=== PATIENT | male | born 1950 | race Caucasian/White ===

== ENCOUNTER 2021-06-21 06:52 | Outpatient (REF) | payer MEDICARE, SELFPAY ==
[2021-06-21 11:29] LABS: Appearance Urine CLEAR; Color Urine YELLOW; Glucose Urine UA NEG (NEG); Leukocyte Esterase Urine NEG (NEG); Nitrite Urine NEG (NEG); Specific Gravity - Urine 1.025 (1.005-1.025); Urine Blood NEG (NEG); Urine Ketones 15 MG/DL (NEG); Urine Protein NEG (NEG-TRACE)
[2021-06-21 12:03] LABS: Prostate Specific Antigen Scr 0.78 ng/mL (<0.05-4.0); TSH reflex Free T4 14.75 uIU/mL (0.32-4.0)
[2021-06-21 12:07] LABS: Alanine Aminotransferase 39 U/L (0-40); Albumin Level 4.1 g/dL (3.5-5.0); Alkaline Phosphatase 47 U/L (39-117); Anion Gap 13 (12-20); Aspartate Amino Transferase 35 U/L (5-37); Bilirubin Total 1.7 mg/dL (0.0-1.0); Blood Urea Nitrogen 20 mg/dL (9-16); Calcium 9.7 mg/dL (8.4-10.2); Carbon Dioxide 27 mmol/L (22-29); Chloride 100 mmol/L (96-108); Cholesterol 172 mg/dL; Estimated Glomerular Filt Rate > 60; Glucose Fasting 90 mg/dL (60-99); HDL Cholesterol 54 mg/dL; LDL Cholesterol Calculated 100 mg/dl; Potassium 4.2 mmol/L (3.3-5.1); Sodium 136 mmol/L (135-145); Triglycerides 93 mg/dL
[2021-06-21 12:38] LABS: Free T4 (Free Thyroxine) 0.84 ng/dL (0.71-1.85)
== END 2021-06-21 06:53 | disposition home or self-care (01) ==
LOC: HO.HMGCLDS 06:52
PROVIDERS: PCP Nurse Practitioner Family; Visit Provider Nurse Practitioner Family
DX: Z00.00 Encounter for general adult medical examination without abnormal findings (principal); Z12.5 Encounter for screening for malignant neoplasm of prostate
CPT/HCPCS: 36415; 80053; 80061; 81003; 84153; 84439; 84443

== ENCOUNTER → 2021-07-15 13:40 | Outpatient (REF) | payer MEDICARE, SELFPAY ==
--- NOTE | 2021-07-15 13:53 | CA_ITS ---
Transthoracic Echocardiogram Amended Patient (Last, First, Middle): Vipul Patterson, Gender: Male Date of : 1950 Age: 70 Procedure Date: 07/15/2021 Procedure Type: Transthoracic Echocardiogram Location: OP Height: 175.26 cm Weight: 96.16 kg BSA: 2.12 m2 Heart Rate: bpm BP: 140 / 90 mmHg [employer] Aide: MIGUEL Referring MD: Angelo Martinez [facility] Symptoms: R94.31 - Abnormal electrocardiogram [ECG] [EKG] Study Quality: Fair ECG Rhythm: Possible atrial fibrillation Conclusions: - The left ventricular systolic function is normal. The calculated ejection fraction is 61% by biplane method. - No obvious valvular pathology seen on this study. Findings Left Ventricle Normal left ventricular cavity size. There is mildly increased left ventricular wall thickness. The left ventricular systolic function is normal. The calculated ejection fraction is 61% by biplane method. There is no evidence of regional wall motion abnormalities. Diastolic function is normal for age. Right Ventricle Normal right ventricular cavity size and systolic function. Atria The left atrium is mildly dilated. The right atrium is normal in size. Aortic Valve There is a normal trileaflet aortic valve. There is no aortic valve stenosis. There is no aortic valve regurgitation. Mitral Valve The mitral valve appears normal. There is trace mitral valve regurgitation. There is no mitral valve stenosis. Pulmonic Valve The pulmonic valve was not well visualized. Tricuspid Valve There is trace tricuspid valve regurgitation. The pulmonary artery systolic pressure is normal. Great Vessels The aortic annulus, sinuses of valsalva, asc aorta, and aortic arch are normal in size. Venous The inferior vena cava is normal in size and collapses greater than 50% with inspiration. Pericardium/Pleural There is no evidence of pericardial effusion. Prior Study Comparison No prior study available for comparison. Recommendations, Care & Conclusions No obvious valvular pathology seen on this study. Measurements 2D Linear Measurements IVSd: 1.02 0.6-0.9/0.6-1.0 cm LVIDd: 4.46 3.9-5.3/4.2-5.9 cm LVIDd Index: 2.10 2.4-3.2/2.2-3.1 cm/m2 LVIDs: 3.13 2.0-3.6 cm LVPWd: 1.15 0.7-1.1 cm Ao Root: 3.70 2.1-3.5 cm LA Diam: 3.90 2.7-3.8/3.0-4.0 cm LAIDs Index: 1.84 1.5-2.3 cm/m2 LV Mass: 210.83 67-162/88-224 g LV Mass Index: 99.45 43-95/49-115 g/m2 LVOT Diam: 2.30 3.0+(-)1.3 cm 2D Volumes LA Vol: 36.70 2D Systolic Function EF 4C: 49.60 >55% EF 2C: 65.80 >55% EF BiP: 60.70 >55% Mitral Valve MV Pk E: 0.71 MV PK A: 0.67 MV Decel Time: 256.00 E/A: 1.10 E'Lateral: 10.60 E'Medial: 6.53 E/E' Med: 10.90 E/E' Lat: 6.70 PHT: 75.00 MVA PHT: 2.93 Decel Jenkins: 2.78 Aortic Valve AoV Pk Ferny: 1.15 AoV Mn Ferny: 0.82 AoV VTI: 0.20 AoV Pk Grad: 5.00 Aov Mn Grad: 3.00 LILY Cont.VTI: 3.74 LVOT LVOT Pk Ferny: 1.15 LVOT Mn Ferny: 0.63 LVOT VTI: 0.18 LVOT Pk Grad: 5.00 LVOT Mn Grad: 2.00 LVOT Diam: 2.30 LVOT Area: 4.15 Diastolic Function MV Pk E: 0.71 MV Pk A: 0.67 E/A: 1.10 E'Medial: 6.53 E/E' Med: 10.90 E' Laterial: 10.60 E/E' Lat: 6.70 Right Ventricle TAPSE (mm): 2.12 TVS' Ferny: 16.20 Tricuspid Valve TR Pk Ferny: 1.95 TR Pk Grad: 15.00 RA Press: 3.00 RVSP: 18.00 Great Vessels Aorta Ao Root-2D: 3.70 2.0-3.7 cm Ao Asc: 3.10 2.1-3.4 cm Ao Arch: 2.40 Updated in Other Vendor System with Status of Final Prasanna Chand MD electronically signed on 07/15/2021 4:51:19 PM with status of Final
== END ==
LOC: HO.CARD 13:40
PROVIDERS: Visit Provider Nurse Practitioner Family
DX: R94.31 Abnormal electrocardiogram [ECG] [EKG] (principal)
CPT/HCPCS: 93306

== ENCOUNTER → 2021-08-15 14:53 | Outpatient (REF) | payer MEDICARE, SELFPAY ==
--- NOTE | 2021-08-15 14:55 | HM_ITS ---
Conclusion : 1. Patient was monitored for total of 3 days 2. Baseline rhythm is NSR with average hr of 86 bpm 3. Very frequent short bursts of SVEs noted c/w SVT longest lasting 14 [place] [id number] PACs accounting for 5% of total beats, c/w frequent PACs 5. No significant pauses or bradycardia noted 6. No patient reported events MTDD
== END ==
LOC: HO.CARD 14:53
PROVIDERS: Visit Provider Nurse Practitioner Family
DX: I49.9 Cardiac arrhythmia, unspecified (principal)
CPT/HCPCS: 93242

== ENCOUNTER 2021-09-10 09:20 | Outpatient (REF) | payer MEDICARE, SELFPAY ==
[2021-09-10 11:16] LABS: Hematocrit 48.6 % (42.0-52.0); Hemoglobin 16.5 g/dl (14.0-18.0); Mean Corpuscular Hemoglobin 32.4 pg (27.0-33.0); Mean Corpuscular Volume 95.5 fL (80.0-98.0); Mean Platelet Volume 9.1 fL (9.4-12.4); Platelet Count 251 X10*3/uL (160-400); Red Blood Count 5.09 X10*6/uL (4.60-5.80); Red Cell Distribution Width 13.6 % (11.0-16.0); White Blood Count 5.2 X10*3/uL (4.8-10.8)
[2021-09-10 11:59] LABS: TSH reflex Free T4 7.14 uIU/mL (0.32-4.0)
== END 2021-09-10 09:21 | disposition home or self-care (01) ==
LOC: HO.LAB 09:20
PROVIDERS: PCP Nurse Practitioner Family; Referring Provider Nurse Practitioner Family; Visit Provider Nurse Practitioner Family
DX: I47.1 Supraventricular tachycardia (principal); Z12.11 Encounter for screening for malignant neoplasm of colon
CPT/HCPCS: 36415; 84439; 84443; 85027; 99202

== ENCOUNTER → 2021-10-14 14:57 | Outpatient (BNVA) | payer MEDICARE, SELFPAY | PROVIDERS: PCP Nurse Practitioner Family; Referring Provider Nurse Practitioner Family; Visit Provider Internal Medicine | DX: Z01.810 Encounter for preprocedural cardiovascular examination (principal); I49.8 Other specified cardiac arrhythmias; I10 Essential (primary) hypertension; R07.2 Precordial pain | CPT/HCPCS: 99202 ==

== ENCOUNTER → 2021-11-11 07:57 | Outpatient (REF) | payer MEDICARE, SELFPAY ==
--- NOTE | ~2021-11-11 | NM_ITS ---
Myocardial perfusion study Indication: Precordial chest pain to evaluate for myocardial ischemia Technique: The patient was brought in for a Lexiscan perfusion study on 11/11/2021. Patient performed low-level exercise and was injected 0.4 mg of Lexiscan intravenously. Within a minute of injection, 30 mCi of sestamibi was given intravenously. Images were obtained using the SPECT gamma camera interlaced with the gating device. Images were obtained in supine position. Resting perfusion study was performed on 11/12/2021. Patient was administered 30 mCi of sestamibi intravenously at rest. Images were then obtained in supine position. Images obtained with and without CT attenuation. Total DLP 121 mGy-cm. Images were processed with the software and compared side to side in short axis, horizontal long axis and vertical long axis views. Findings: The stress perfusion study showed non attenuated images show minimal thinning in the basal septum basal inferior wall of the LV myocardium. This appears to be a normal variant. Remainder of the LV myocardium is normally perfused. Attenuated corrected images show normal uptake of radiotracer in all segments of LV myocardium. The gated study shows normal LV systolic function with calculated LVEF of 64%. LV cavity is normal in size. The gated study shows normal systolic wall thickening and contraction of segments. Resting study shows attenuated corrected images show normal uptake of radiotracer in all segments myocardium. Gating at rest reveals normal systolic wall motion with ejection fraction at 60%. The findings are consistent with normal myocardial perfusion. NM/NM cardiolite stress test Impression: 1. Myocardial perfusion imaging study shows normal myocardial perfusion 2. Gated LVEF is 64% 3. Transient ischemic dilatation not present EKG is nondiagnostic for ischemia
--- NOTE | 2021-11-11 08:00 | CA_ITS ---
Acquisition Time: 2021-11-11 08:09:39 Total Exercise Time: 00:02:00 Test Indications: Abnormal ECG Medications: AMLODIPINE Protocol: LEXISCAN Max HR: 116 BPM 78% of Pred: 147 BPM Max BP: 184/100 mmHG Max Work Load: 1.0 METS Pharmacological stress test with Lexiscan injection, while sitting and kickng his legs, without anginal symptoms, with frequent PACs and short atrial runs, with normotensive response to injection, with nondiagnostic EKG for ischemia. In recovery he reported lightheadedness that was treated with Aminophylline 75mg IVP to reverse Lexiscan with resolution of symptom. Nuclear images pending. Test reviewed with Dr Chand Referred By: Prasanna Chand Overread By: CHARMAINE AVILES
== END ==
LOC: HO.CARD 07:57
PROVIDERS: PCP Nurse Practitioner Family; Visit Provider Internal Medicine
DX: R07.2 Precordial pain (principal)
CPT/HCPCS: 78452; 93017; A9500; J0280; J2785

== ENCOUNTER → 2021-11-25 14:55 | Outpatient (BNVA) | payer MEDICARE, SELFPAY | PROVIDERS: PCP Nurse Practitioner Family; Referring Provider Nurse Practitioner Family; Visit Provider Internal Medicine | DX: Z01.810 Encounter for preprocedural cardiovascular examination (principal); I49.8 Other specified cardiac arrhythmias; I10 Essential (primary) hypertension | CPT/HCPCS: 99212 ==

== ENCOUNTER 2021-12-04 07:29 | Outpatient (REF) | payer MEDICARE, SELFPAY ==
[2021-12-04 11:58] LABS: Anion Gap 13 (12-20); Blood Urea Nitrogen 17 mg/dL (9-16); Calcium 9.7 mg/dL (8.4-10.2); Carbon Dioxide 28 mmol/L (22-29); Chloride 93 mmol/L (96-108); Estimated Glomerular Filt Rate 53; Glucose Random 106 mg/dL (60-115); Potassium 4.1 mmol/L (3.3-5.1); Sodium 130 mmol/L (135-145)
== END 2021-12-04 07:30 | disposition home or self-care (01) ==
LOC: HO.HMGCLDS 07:29
PROVIDERS: PCP Nurse Practitioner Family; Visit Provider Internal Medicine
DX: I10 Essential (primary) hypertension (principal)
CPT/HCPCS: 36415; 80048

== ENCOUNTER → 2022-05-27 13:51 | Outpatient (BNVA) | payer MEDICARE, SELFPAY | PROVIDERS: PCP Nurse Practitioner Family; Referring Provider Nurse Practitioner Family; Visit Provider Internal Medicine | DX: I49.8 Other specified cardiac arrhythmias (principal); I10 Essential (primary) hypertension; R94.31 Abnormal electrocardiogram [ECG] [EKG] | CPT/HCPCS: 93005; 99212 ==

== ENCOUNTER → 2022-11-25 13:07 | Outpatient (BNVA) | payer MEDICARE, SELFPAY | PROVIDERS: PCP Nurse Practitioner Family; Referring Provider Nurse Practitioner Family; Visit Provider Internal Medicine | DX: I49.8 Other specified cardiac arrhythmias (principal); I10 Essential (primary) hypertension; R94.31 Abnormal electrocardiogram [ECG] [EKG] | CPT/HCPCS: 99212 ==

== ENCOUNTER 2022-12-17 07:19 | Outpatient (REF) | payer MEDICARE, SELFPAY ==
[2022-12-17 11:23] LABS: MANUAL DIFF FLAG NO
[2022-12-17 11:33] LABS: Appearance Urine Clear; Color Urine Yellow; Glucose Urine UA Negative (Negative); Leukocyte Esterase Urine Negative (Negative); Nitrite Urine Negative (Negative); Specific Gravity - Urine 1.015 (1.005-1.025); Urine Blood Negative (Negative); Urine Ketones Negative (Negative); Urine Protein Negative (Neg-Trace)
[2022-12-17 11:34] LABS: Basophils Percent Auto 0.5 % (0-2); Eosinophils Absolute Auto 0.1 X10*3/uL (0.0-0.4); Eosinophils Percent Auto 1.2 % (0-4); Hematocrit 44.8 % (42.0-52.0); Hemoglobin 15.3 g/dl (14.0-18.0); Imm Gran Abs Auto 0.01 X10*3/uL (0.00-0.03); Imm Gran Pct Auto 0.2 % (0.0-0.4); Lymphocytes Absolute Auto 1.6 X10*3/uL (1.2-4.9); Lymphocytes Percent Auto 26.1 % (20-40); Mean Corpuscular HGB Conc 34.2 g/dl (31.0-36.0); Mean Corpuscular Hemoglobin 32.1 pg (27.0-33.0); Mean Corpuscular Volume 94.1 fL (80.0-98.0); Mean Platelet Volume 9.5 fL (9.4-12.4); Monocytes Absolute Auto 0.9 X10*3/uL (0.1-1.2); Monocytes Percent Auto 14.3 % (2-11); Neutrophils Absolute Auto 3.5 x10*3/uL (2.0-8.3); Neutrophils Percent Auto 57.7 % (45-73); Platelet Count 249 X10*3/uL (160-400); Red Blood Count 4.76 X10*6/uL (4.60-5.80); Red Cell Distribution Width 13.4 % (11.0-16.0)
[2022-12-17 12:11] LABS: Alanine Aminotransferase 48 U/L (0-40); Alkaline Phosphatase 41 U/L (39-117); Anion Gap 10 (12-20); Aspartate Amino Transferase 39 U/L (5-37); Bilirubin Total 1.5 mg/dL (0.0-1.0); Blood Urea Nitrogen 18 mg/dL (9-16); Calcium 8.9 mg/dL (8.4-10.2); Carbon Dioxide 27 mmol/L (22-29); Chloride 100 mmol/L (96-108); Cholesterol 151 mg/dL; Estimated Glomerular Filt Rate 48; Glucose Fasting 97 mg/dL (60-99); HDL Cholesterol 54 mg/dL; LDL Cholesterol Calculated 84 mg/dl; Potassium 4.3 mmol/L (3.3-5.1); Sodium 133 mmol/L (135-145); Total Protein 6.5 g/dL (6.5-8.0); Triglycerides 68 mg/dL
[2022-12-17 12:31] LABS: Prostate Specific Antigen Scr 0.65 ng/mL (<0.05-4.0); TSH reflex Free T4 8.56 uIU/mL (0.32-4.0)
[2022-12-17 13:15] LABS: Free T4 (Free Thyroxine) 0.95 ng/dL (0.71-1.85)
== END 2022-12-17 07:20 | disposition home or self-care (01) ==
LOC: HO.HMGCLDS 07:19
PROVIDERS: PCP Nurse Practitioner Family; Visit Provider Nurse Practitioner Family
DX: Z00.00 Encounter for general adult medical examination without abnormal findings (principal); R79.89 Other specified abnormal findings of blood chemistry; R74.8 Abnormal levels of other serum enzymes; Z12.5 Encounter for screening for malignant neoplasm of prostate
CPT/HCPCS: 36415; 80053; 80061; 81003; 84153; 84439; 84443; 85025

== ENCOUNTER 2023-06-29 15:58 | Outpatient (AMB) | payer MEDICARE, SELFPAY ==
--- NOTE | 2023-06-29 16:03 | A.OFFPC_ITS ---
Vital Signs 06/29/23 16:04 Height 5 ft 9 in Weight 211 lb BMI 31.2 BP 150/100 H Blood Pressure Location Lt brachial Position Sitting Pulse 98 Pulse Source Pulse Oximeter Pulse Oximetry (%) 97 Oxygen Delivery Method Room Air Intake Visit Reasons: recurring cough, declined walk in Allergies No Known Allergies Allergy (Verified 06/29/23 16:05) Medication List - Last Reconciled 06/29/23 by JESUS Bowen amlodipine 10 mg PO DAILY hydrochlorothiazide 25 mg PO DAILY lisinopril 20 mg PO DAILY 90 days metoprolol tartrate 25 mg PO BID 90 days Tobacco use date assessed: 12/09/22 HPI recurring cough, declined walk in HPI Details Pt c/o cough since having COVID in December. He reports that this has increased. Pt states that the cough can be either dry or productive and happens at any time of day/night. Denies fever, chills, chest pain, and shortness of breath. Will order CT. Pt also c/o fatigue. Will order labs. HTN: pt reports taking his BP at home, reporting it is much better at home. He will contact me if he notices his BP is trending above 140/90. [facility] Medical History Arthritis Surgical History Hx of colonoscopy Hx of right knee surgery Family History Father No problems noted. Mother No problems noted. Social History Housing: House Patient Tobacco Use Status: Never used Tobacco e-Cigarette/Vaping Use: Never Used Current occupational status: retired Cognitive needs: No Hearing needs: No Vision needs: No Questionnaire Thrive Questionnaire Date Thrive assessed: 12/09/22 GUERA-7 AMB Questionnaire GUERA-7 Date GUERA - 7 assessed: 12/09/22 Source: Developed by Drs. Terry Cline, Shagufta Moreno, John Leo and colleagues, with an educational sandhya from [employer]). Review of Systems Const Reports as per HPI Physical exam (Primary Care) Vital Signs: Last Vital Signs Pulse 98 06/29/23 16:04 BP 150/100 H 06/29/23 16:04 Pulse Ox 97 06/29/23 16:04 Oxygen Delivery Method Room Air 06/29/23 16:04 BMI result Body Mass Index 31.2 Tobacco/Smoking Status: Tobacco use Status Tobacco use date assessed 12/09/22 06/29/23 16:04 Patient Tobacco Use Status Never used Tobacco 06/29/23 16:04 e-Cigarette/Vaping Use Never Used 06/29/23 16:04 Thrive Assessment: Date of Thrive Assessment Date Thrive assessed 12/09/22 06/29/23 16:04 Const General: cooperative Nutritional Appearance: obese Orientation/consciousness: patient oriented x3 Resp Other: lungs fairly clear, slightly diminished Effort & Inspection: normal respiratory effort Cardio Rate: regular rate Rhythm: regular rhythm Heart sounds: S1 normal heart sound present and S2 normal heart sound present Neuro General: patient oriented x3 Psych Appearance: grossly normal Mental Status: mental status grossly normal Speech and movement: Normal speech and movement present Affect: normal affect Attitude: cooperative Thought process: Normal thought process present Thought content: Normal thought content present Insight: Good insight present (Psych) Judgement: Good judgement present (Psych) Assessment and Plan Assessment & Plan (1) Long COVID: Code(s): U09.9 - Post COVID-19 condition, unspecified Plan: CT ordered (2) Cough: Code(s): R05.9 - Cough, unspecified Plan: CT ordered (3) Fatigue: Code(s): R53.83 - Other fatigue Plan: Labs ordered Plan The patient agreed to the use of a medical officer psychiatry for this encounter. Scribed for ARELI Fallon-FARIBA by Carolina Guajardo medical officer psychiatry, on 06/29/2023 at 16:20 EST. Orders: Orders Comprehensive Met. Panel Today R53.83 - Other fatigue, U09.9 - Post COVID-19 condition, unspecified TSH reflex Free T4 Today R53.83 - Other fatigue, U09.9 - Post COVID-19 condition, unspecified IRON PROFILE Today R53.83 - Other fatigue CT chest wo IV con Today R05.9 - Cough, unspecified, U09.9 - Post COVID-19 condition, unspecified Complete Blood Count Auto Diff Today R53.83 - Other fatigue, U09.9 - Post COVID- 19 condition, unspecified Ferritin Today R53.83 - Other fatigue Vitamin B12 and Folate Today R53.83 - Other fatigue Coding Level of Care Code Est Pt Level 3 (34356) Diagnoses Long COVID U09.9 Cough R05.9 Fatigue R53.83
[2023-06-29 16:04] VITALS: BP 150/100; PULSE 98; O2SAT 97; BMI 31.2
== END 2023-06-29 16:32 | disposition home or self-care (01) ==
PROVIDERS: PCP Nurse Practitioner Family; Visit Provider Nurse Practitioner Family
DX: U09.9 Post COVID-19 condition, unspecified (principal); R05.9 Cough, unspecified; R53.83 Other fatigue
CPT/HCPCS: 99213

== ENCOUNTER 2023-08-05 12:46 | Outpatient (REF) | payer MEDICARE, SELFPAY ==
--- NOTE | ~2023-08-05 | CT_ITS ---
EXAMINATION: CT CHEST WITHOUT CONTRAST CLINICAL INFORMATION: Cough, unspecified. COMPARISON: None available. TECHNIQUE: Multidetector volumetric CT imaging of the chest was done. Axial MIP volume rendering provided. Sagittal and coronal reformatted images were obtained. This CT examination was performed using dose optimization techniques as appropriate, variously including the following: *Automated exposure control *Adjustment of mA and/or kV according to patient size (this includes techniques or standardized protocols for targeted exams where dose is matched to indication/reason for exam; i.e. extremities or head) *Use of iterative reconstruction technique DLP: 237 mGy-cm FINDINGS: LUNGS: Mild motion degradation at the lung bases. Mildly thick-walled airways. No focal consolidation. Mild scarring or subsegmental atelectasis in left lower lobe. No suspicious nodules. MEDIASTINUM: No adenopathy. No pericardial effusion. No aortic aneurysm. CORONARY ARTERY CALCIFICATION: Mild LAD, LCx, RCA calcium. PLEURA: There is no pleural effusion. No pleural mass or thickening. AXILLA: No lymphadenopathy. UPPER ABDOMEN: Cholelithiasis. 4.0 x 3.6 cm simple cyst in the right hepatic lobe. OSSEOUS STRUCTURES: Mild degenerative changes in the spine. CT/CT chest wo IV con IMPRESSION: Mild airway wall thickening. No focal pneumonia. Mild LAD, LCx, RCA coronary calcium. Cholelithiasis. Fleischner guidelines were followed.
== END 2023-08-05 12:47 | disposition home or self-care (01) ==
LOC: HO.CT 12:46
PROVIDERS: PCP Nurse Practitioner Family; Visit Provider Nurse Practitioner Family
DX: R05.9 Cough, unspecified (principal); U09.9 Post COVID-19 condition, unspecified
CPT/HCPCS: 71250

== ENCOUNTER 2023-09-30 12:48 | Outpatient (AMB) | payer MEDICARE, SELFPAY ==
[2023-09-30 13:03] VITALS: BP 118/72; PULSE 52; O2SAT 99; BMI 31.0
--- NOTE | 2023-09-30 13:03 | A.OFFPC_ITS ---
Vital Signs 09/30/23 13:03 Height 5 ft 9 in Weight 210 lb 2 oz BMI 31.0 BP 118/72 Blood Pressure Location Rt brachial Position Sitting Pulse 52 Pulse Source Pulse Oximeter Pulse Oximetry (%) 99 Oxygen Delivery Method Room Air Intake Visit Reasons: 3 MONTH FOLLOW UP Intake Note: Pt is here to follow up for HTN Allergies No Known Allergies Allergy (Verified 09/30/23 13:05) Tobacco use date assessed: 09/30/23 Fall risk assessment: No Falls in past year Last assessed Fall Risk: 09/30/23 Dental Screening Dental Screen Date: 09/30/23 Did you have a dental visit in the last 12 months?: Yes Did you have a dental problem in the last 6 months where you did not have access to dental care?: No Was dental information given to patient?: Patient has dentist HPI 3 MONTH FOLLOW UP HPI Details HTN: Blood pressure is stable, managed with amlodipine 10mg, hydrochlorothiazide 25mg, lisinopril 20mg, and metoprolol 25mg bid. Denies chest pain, shortness of breath, headache, dizziness, and blurred vision. Pt had a cough and after having COVID. He reports that he is no longer experiencing fatigue or a cough. Pt follows up with cardiology. [facility] Medical History Arthritis Surgical History Hx of colonoscopy Hx of right knee surgery Family History Father No problems noted. Mother No problems noted. Social History Housing: House Patient Tobacco Use Status: Never used Tobacco e-Cigarette/Vaping Use: Never Used Current occupational status: retired Cognitive needs: No Hearing needs: No Vision needs: No Questionnaire Thrive Questionnaire Date Thrive assessed: 12/09/22 GUERA-7 AMB Questionnaire GUERA-7 Date GUERA - 7 assessed: 12/09/22 Source: Developed by Drs. Terry Cline, Shagufta Moreno, John Leo and colleagues, with an educational sandhya from [employer] Review of Systems Const Reports as per HPI Physical exam (Primary Care) Vital Signs: Last Vital Signs Pulse 52 09/30/23 13:03 BP 118/72 09/30/23 13:03 Pulse Ox 99 09/30/23 13:03 Oxygen Delivery Method Room Air 09/30/23 13:03 BMI result Body Mass Index 31.0 Tobacco/Smoking Status: Tobacco use Status Tobacco use date assessed 09/30/23 09/30/23 13:07 Patient Tobacco Use Status Never used Tobacco 09/30/23 13:07 e-Cigarette/Vaping Use Never Used 09/30/23 13:07 Thrive Assessment: Date of Thrive Assessment Date Thrive assessed 12/09/22 09/30/23 13:07 Const General: cooperative Nutritional Appearance: obese Orientation/consciousness: patient oriented x3 Resp Effort & Inspection: normal respiratory effort Auscultation: clear to auscultation bilaterally Cardio Rate: regular rate Rhythm: regular rhythm Heart sounds: S1 normal heart sound present and S2 normal heart sound present Neuro General: patient oriented x3 Psych Appearance: grossly normal Mental Status: mental status grossly normal Speech and movement: Normal speech and movement present Affect: normal affect Attitude: cooperative Thought process: Normal thought process present Thought content: Normal thought content present Insight: Good insight present (Psych) Judgement: Good judgement present (Psych) Assessment and Plan Assessment & Plan (1) Essential hypertension: Code(s): I10 - Essential (primary) hypertension Plan: Continue current meds, labs ordered (2) Cough: Code(s): R05.9 - Cough, unspecified Plan: cough is better Plan The patient agreed to the use of a medical professionals for this encounter. Scribed for JESUS Fallon by Carolina Guajardo medical professionals, on 09/30/2023 at 13:15 EST. Orders: Orders Complete Blood Count Auto Diff Today I10 - Essential (primary) hypertension Comprehensive [place]. Panel Fast Today I10 - Essential (primary) hypertension UA CC w/rflx Micro + Cult Today I10 - Essential (primary) hypertension TSH reflex Free T4 Today I10 - Essential (primary) hypertension Lipid Panel Today I10 - Essential (primary) hypertension Coding Level of Care Code Est Pt Level 3 (00051) Diagnoses Essential hypertension I10 Cough R05.9
== END 2023-09-30 14:41 | disposition home or self-care (01) ==
PROVIDERS: PCP Nurse Practitioner Family; Visit Provider Nurse Practitioner Family
DX: I10 Essential (primary) hypertension (principal); R05.9 Cough, unspecified
CPT/HCPCS: 99213

== ENCOUNTER 2023-11-25 13:23 | Outpatient (AMB) | payer MEDICARE, SELFPAY ==
--- NOTE | 2023-11-25 13:34 | MHC.OFFVIS ---
Intake Vital Signs 11/25/23 13:35 Height 5 ft 9 in Weight 216 lb 0.848 oz BMI 31.9 BP 120/68 Blood Pressure Location Lt brachial Position Sitting Pulse 82 Pulse Source Monitor Intake Visit Reasons: 1 yr fu after holter Intake Note: 1 year follow up with EKG PT feels good. Allergies No Known Allergies Allergy (Verified 09/30/23 13:05) HPI HPI Comments History of Present Illness Details 73-year-old male presents today for a follow-up. He reports he has been doing well. Patient has a history of hypertesion and atrial arrhythmias. He denies any chest pains, shortness of breath, swelling, or palpitations. He reports blood pressures at home are 120s-70s. [facility] Medical History Arthritis Surgical History Hx of colonoscopy Hx of right knee surgery Family History Father No problems noted. Mother No problems noted. Social History Housing: House Patient Tobacco Use Status: Never used Tobacco e-Cigarette/Vaping Use: Never Used Current occupational status: retired Cognitive needs: No Hearing needs: No Vision needs: No Review of Systems Const Denies weakness ENT Denies dizziness Card Denies chest pain, Denies chest pain with activity, Denies syncope, Denies rapid heart rate, Denies pedal edema, Denies edema, Denies leg edema, Denies lightheadedness, Denies palpitations, Denies dyspnea, Denies dyspnea on exertion and Denies orthopnea Resp Denies cough, Denies dyspnea and Denies dyspnea on exertion GI Denies hematochezia and Denies change in stool character Musc Denies abnormal gait, Denies muscle cramps, Denies muscle weakness, Denies numbness, Denies radiating pain into limb and Denies tingling Neuro Denies abnormal gait, Denies dizziness, Denies syncope, Denies numbness, Denies tingling and Denies weakness Endo Denies palpitations Physical Exam Vital Signs: Last Vital Signs Pulse 82 11/25/23 13:35 BP 120/68 11/25/23 13:35 BMI result Body Mass Index 31.9 Office Procedures EKG Details: EKG today. Sinus rhythm with PACs. Rate 82 bpm. T wave abnormality, consider inferolateral ischemia. QRS 82ms. QTc 448ms. WI 162ms. [id number], Complete Assessment & Plan Assessment & Plan (1) Abnormal EKG: Code(s): R94.31 - Abnormal electrocardiogram [ECG] [EKG] (2) Atrial arrhythmia: Code(s): I49.8 - Other specified cardiac arrhythmias (3) Essential hypertension: Code(s): I10 - Essential (primary) hypertension Plan Past holter showed frequent atrial ectopy with short runs. Patient did not get holter prior to appointment. Will get echocardiogram and stress test due to EKG changes inferolaterally. Prior testing showed normal myocardial perfusion. He is being screened for atrial fibrillation. Will follow-up after testing. Patient agreed to care. Blood pressure within range today. Continue amlodipine, hydrochlorothiazide, lisinopril. and metoprolol. Orders: Orders CA echo transthoracic complete Today I10 - Essential (primary) hypertension, I49.8 - Other specified cardiac arrhythmias, R94.31 - Abnormal electrocardiogram [ECG] [EKG] NM cardiolite stress test Today I10 - Essential (primary) hypertension, I49.8 - Other specified cardiac arrhythmias, R94.31 - Abnormal electrocardiogram [ECG] [EKG] CA lexiscan stress w clary Today I10 - Essential (primary) hypertension, I49.8 - Other specified cardiac arrhythmias, R94.31 - Abnormal electrocardiogram [ECG] [EKG] Coding Level of Care Code Est Pt Level 3 (91660) Diagnoses Abnormal EKG R94.31 Atrial arrhythmia I49.8 Essential hypertension I10 CPT Codes EKG - CPT: 84050-[id number], Complete ([id number])
[2023-11-25 13:35] VITALS: BP 120/68; PULSE 82; BMI 31.9
== END 2023-11-25 14:08 | disposition home or self-care (01) ==
PROVIDERS: Visit Provider Nurse Practitioner
DX: R94.31 Abnormal electrocardiogram [ECG] [EKG] (principal); I49.8 Other specified cardiac arrhythmias; I10 Essential (primary) hypertension
CPT/HCPCS: 93010; 99213

== ENCOUNTER → 2023-11-25 13:23 | Outpatient (BNVA) | payer MEDICARE, SELFPAY | PROVIDERS: Visit Provider Nurse Practitioner | DX: R94.31 Abnormal electrocardiogram [ECG] [EKG] (principal); I49.8 Other specified cardiac arrhythmias; I10 Essential (primary) hypertension | CPT/HCPCS: 93005; 99212 ==

== ENCOUNTER 2023-12-09 07:14 | Outpatient (REF) | payer MEDICARE, SELFPAY ==
[2023-12-09 10:37] LABS: MANUAL DIFF FLAG NO
[2023-12-09 10:48] LABS: Color Urine Dark Yellow; Glucose Urine UA Negative (Negative); Leukocyte Esterase Urine Small (1+) (Negative); Nitrite Urine Negative (Negative); PH 6.5 (5.0-9.0); UMIC TRIGGER UACC YES; Urine Blood Negative (Negative); Urine Ketones Negative (Negative); Urine Protein Negative (Neg-Trace)
[2023-12-09 10:49] LABS: Appearance Urine Hazy; Bacteria Urine 4+ (None Seen); Hyaline Casts Urine 0-2 /LPF (0-2); RBC Urine 0-2 /HPF (0-2); Squamous Epithelial Cell Urine 0-2 /HPF (0-2); UACC Culture Trigger YES; WBC Urine >50 /HPF (0-5)
[2023-12-09 10:51] LABS: Basophils Percent Auto 0.5 % (0-2); Eosinophils Absolute Auto 0.1 X10*3/uL (0.0-0.4); Eosinophils Percent Auto 1.6 % (0-4); Hemoglobin 15.1 g/dl (14.0-18.0); Imm Gran Abs Auto 0.03 X10*3/uL (0.00-0.03); Imm Gran Pct Auto 0.5 % (0.0-0.4); Lymphocytes Absolute Auto 1.5 X10*3/uL (1.2-4.9); Lymphocytes Percent Auto 26.4 % (20-40); Mean Corpuscular HGB Conc 34.3 g/dl (31.0-36.0); Mean Corpuscular Hemoglobin 32.3 pg (27.0-33.0); Mean Platelet Volume 9.6 fL (9.4-12.4); Monocytes Absolute Auto 0.7 X10*3/uL (0.1-1.2); Neutrophils Absolute Auto 3.2 x10*3/uL (2.0-8.3); Platelet Count 292 X10*3/uL (160-400); Red Blood Count 4.68 X10*6/uL (4.60-5.80); Red Cell Distribution Width 13.5 % (11.0-16.0); White Blood Count 5.6 X10*3/uL (4.8-10.8)
[2023-12-09 11:18] LABS: Alanine Aminotransferase 65 U/L (0-40); Alkaline Phosphatase 46 U/L (39-117); Anion Gap 14 (12-20); Aspartate Amino Transferase 67 U/L (5-37); Bilirubin Total 1.2 mg/dL (0.0-1.0); Blood Urea Nitrogen 30 mg/dL (9-16); Calcium 9.5 mg/dL (8.4-10.2); Carbon Dioxide 26 mmol/L (22-29); Chloride 102 mmol/L (96-108); Cholesterol 160 mg/dL (<200); Estimated Glomerular Filt Rate 50; Ferritin 1104 ng/mL (20-250); Glucose Fasting 97 mg/dL (60-99); Glucose Random 96 mg/dL (60-115); HDL Cholesterol 55 mg/dL (>40); Iron 154 mcg/dL (45-160); LDL Cholesterol Calculated 90 mg/dL (<100); Percent Iron Saturation 62 % (15-50); Potassium 4.1 mmol/L (3.3-5.1); Sodium 138 mmol/L (135-145); TSH reflex Free T4 8.08 uIU/mL (0.32-4.0); Total Iron Binding Capacity 249 mcg/dL (228-428); Total Protein 7.2 g/dL (6.5-8.0); Triglycerides 76 mg/dL (<150); Unsaturated Iron Binding 95 ug/dL
[2023-12-09 11:41] LABS: Folate 4.5 ng/mL (> or = 4.0); Prostate Specific Antigen Scr 0.92 ng/mL (<0.05-4.0)
[2023-12-09 11:56] LABS: Free T4 (Free Thyroxine) 0.94 ng/dL (0.71-1.85)
[2023-12-09 20:08] LABS: Vitamin B12 343 pg/mL (200-900)
== END 2023-12-09 07:15 | disposition home or self-care (01) ==
LOC: HO.HMGCLDS 07:14
PROVIDERS: PCP Nurse Practitioner Family; Visit Provider Nurse Practitioner Family
DX: Z00.00 Encounter for general adult medical examination without abnormal findings (principal); I10 Essential (primary) hypertension; R53.83 Other fatigue; U09.9 Post COVID-19 condition, unspecified; Z12.5 Encounter for screening for malignant neoplasm of prostate
CPT/HCPCS: 36415; 80053; 80061; 81001; 82607; 82728; 82746; 83540; 84153; 84439; 84443; 85025; 87086; 87088; 87186

== ENCOUNTER 2023-12-14 12:13 | Outpatient (AMB) | payer MEDICARE, SELFPAY ==
--- NOTE | 2023-12-14 12:32 | MHC.PC.OV ---
Vital Signs 12/14/23 12:35 Height 5 ft 9 in Weight 211 lb BMI 31.2 BP 110/70 Blood Pressure Location Rt brachial Position Sitting Pulse 102 H Pulse Source Pulse Oximeter Pulse Oximetry (%) 97 Oxygen Delivery Method Room Air Intake Visit Reasons: PE Intake Note: Patient here for physical exam. Allergies No Known Allergies Allergy (Verified 12/14/23 15:41) Medication List - Last Reconciled 12/14/23 by JESUS Bowen amlodipine 10 mg PO DAILY hydrochlorothiazide 25 mg PO DAILY levothyroxine 50 mcg PO DAILY lisinopril 20 mg PO DAILY 90 days metoprolol tartrate 25 mg PO BID 90 days nitrofurantoin macrocrystal 100 mg PO BID 5 days Tobacco use date assessed: 09/30/23 Fall risk assessment: No Falls in past year Last assessed Fall Risk: 12/14/23 Dental Screening Dental Screen Date: 09/30/23 HPI PE HPI Details Pt is here for a PE. Labs were already performed. Cologuard is up to date. PSA is up to date. Denies dribbling with urination, weak stream, and frequent nocturia. Pt's last TSH was elevated (subclinical), though is reporting more fatigue. Will start levothyroxine 50mcg and repeat TSH. Pt also had elevated ferritin and iron saturation %. Will order hemochromatosis DNA panel and refer to hematology. Pt's liver enzymes were also elevated. US has been ordered. EKG today is changed from 2 weeks ago. After discussing findings with pt, he agrees to a holter monitor. Spoke with cardiology who also agrees with holter. Pt is completely asymptomatic. Denies chest pain, shortness of breath, and dizziness. Left external ear (upper helix) with dry lesion, pt reports seeing derm for this in the past, and has a follow up with them in the near future. HPI Comments History of Present Illness Details Pt is here for a PE. colonoscopy is up to date [facility] Medical History (Updated 12/14/23 @ 12:38 by JESUS Bowen) Arthritis Surgical History Hx of colonoscopy Hx of right knee surgery Family History Father No problems noted. Mother No problems noted. Social History Housing: House Patient Tobacco Use Status: Never used Tobacco e-Cigarette/Vaping Use: Never Used Current occupational status: retired Cognitive needs: No Hearing needs: No Vision needs: No Questionnaire PHQ-9 Over the last 2 weeks, how often have you been bothered by any of the following problems? 1. Little interest or pleasure in doing things: not at all 2. Feeling down, depressed, or hopeless: not at all 3. Trouble falling or staying asleep, or sleeping too much: not at all 4. Feeling tired or having little energy: several days 5. Poor appetite or overeating: not at all 6. Feeling bad about yourself - or that you are a failure or have let yourself or your family down: not at all 7. Trouble concentrating on things, such as reading the newspaper or watching television: not at all 8. Moving or speaking so slowly that other people could have noticed. Or the opposite - being so fidgety or restless that you have been moving around a lot more than usual: not at all 9. Thoughts that you would be better off or of hurting yourself in some way: not at all Total score: 1 Depression Screening Interpretation: Negative Depression Screening Done: Yes 67843 - PHQ-9 Billing: Yes Source: Developed by Drs. Terry Cline, Shagufta Moreno, John Leo and colleagues, with an educational sandhya from [employer] Thrive Questionnaire Date Thrive assessed: 12/14/23 I am a: Patient What is your living situation today?: I have a steady place to live Within the past 12 months, did the food you bought not last and you didn't have the money to get more?: Never true Within the past 12 months, did you worry whether your food would run out before you got money to buy more?: Never true Do you have trouble paying for medicines?: No Do you have trouble getting transportation to medical appointments?: No Do you have trouble paying your heating and electricity bill?: No Do you have trouble taking care of your child, family member or friend?: No Do you have trouble with day-to-day activities such as bathing, preparing meals, shopping, managing finances, etc.?: No Are you currently unemployed and looking for a job?: No Are you interested in more education?: No Currently or been in a relationship where the following occur: I choose not to answer this question THRIVE Score: 0 AUDIT C Alcohol Use Questionnaire (AUDIT-C) 1. How often do you have a drink containing alcohol?: Never 3. How often do you have six or more drinks on one occasion?: Never Total Score: 0 Score Reviewed/Action Taken: No GUERA-7 AMB Questionnaire GUERA-7 Date GUERA - 7 assessed: 12/14/23 Feeling nervous, anxious, or on edge: 0 = Not at all Not being able to stop or control worryin = Not at all Worrying too much about different things: 0 = Not at all Trouble relaxin = Not at all Being so restless that it is hard to sit still: 0 = Not at all Becoming easily annoyed or irritable: 1 = Several days Feeling afraid as if something awful might happen: 0 = Not at all Total GUERA-7 score (0-4 normal; 5-9 mild; 10-14 moderate; 15-21 severe): 1 Source: Developed by Drs. Terry Cline, Shagufta Moreno, John Leo and colleagues, with an educational sandhya from [employer] GUERA-7 Assessment Billing GUERA-7 Assessment Tool: GUERA-7 Assessment 67257 Review of Systems Const Denies chills and Denies fever(s) Eyes Denies blurry vision ENT Denies vertigo, Denies dizziness and Denies sore throat Card Denies chest pain at rest, Denies chest pain with activity, Denies diaphoresis, Denies dyspnea and Denies dyspnea on exertion Resp Denies cough, Denies dyspnea, Denies dyspnea on exertion and Denies wheezing GI Denies abdominal pain, Denies melena, Denies hematochezia, Denies constipation, Denies diarrhea and Denies loose stools Denies hematuria Musc Denies numbness and Denies tingling Skin/Breast Denies lesions Neuro Denies vertigo, Denies dizziness, Denies numbness and Denies tingling Psych Denies anxiety, Denies depression, Denies homicidal ideation, Denies suicidal ideation and Denies other (substance abuse) Aller/Immun Denies wheezing Physical exam (Primary Care) Vital Signs: Last Vital Signs Pulse 102 H 12/14/23 12:35 BP 110/70 12/14/23 12:35 Pulse Ox 97 12/14/23 12:35 Oxygen Delivery Method Room Air 12/14/23 12:35 BMI result Body Mass Index 31.2 Tobacco/Smoking Status: Tobacco use Status Tobacco use date assessed 09/30/23 12/14/23 12:33 Patient Tobacco Use Status Never used Tobacco 12/14/23 12:33 e-Cigarette/Vaping Use Never Used 12/14/23 12:33 PHQ-9: PHQ-9 Score PHQ-9: Total score 1 12/14/23 12:53 Depression Screening Interpretation: Negative Thrive Assessment: Date of Thrive Assessment Date Thrive assessed 12/14/23 12/14/23 12:41 Currently or been in a relationship where the following occur: I choose not to answer this question Const General: cooperative Nutritional Appearance: well nourished Orientation/consciousness: patient oriented x3 HENMT Head: Yes normal to inspection, Yes normocephalic and Yes atraumatic Ears: TM normal on the right and TM normal on the left Eyes General: appearance normal, both eyes and all related structures Alignment and Position: alignment normal and position normal Neck Neck: Yes normal visual inspection and Yes no lymphadenopathy Thyroid: Thyroid normal Resp Effort & Inspection: normal respiratory effort Auscultation: clear to auscultation bilaterally Cardio Other: irregular Rate: regular rate Rhythm: abnormal rhythm (? PACs) Heart sounds: S1 normal heart sound present, S2 normal heart sound present and no murmurs GI Palpation (GI): Soft to palpation and nontender Auscultation: normal bowel sounds Skin Other: left upper external helix with dry, tissue colored, scabbed lesion Rashes: no rashes Neuro General: patient oriented x3, moves all extremities, no focal motor deficits and deep tendon reflexes 2+ bilaterally Romberg Test: Negative Extrem Right lower extremity: no edema Left lower extremity: no edema Psych Appearance: grossly normal Mental Status: mental status grossly normal Speech and movement: Normal speech and movement present Affect: normal affect Attitude: cooperative Thought process: Normal thought process present Thought content: Normal thought content present Insight: Good insight present (Psych) Judgement: Good judgement present (Psych) Assessment and Plan Assessment & Plan (1) Elevated ferritin: Code(s): R79.89 - Other specified abnormal findings of blood chemistry Plan: Labs ordered, referred to hematology (2) Irregular heart rhythm: Code(s): I49.9 - Cardiac arrhythmia, unspecified Plan: spoke with cardio, ordering a repeat holter. pt is asymptomatic, he does see cardiology. (3) Abnormal EKG: Code(s): R94.31 - Abnormal electrocardiogram [ECG] [EKG] Plan: as above Plan The patient agreed to the use of a medical instrument cable fabricator for this encounter. Scribed for JESUS Fallon by Carolina Guajardo medical instrument cable fabricator, on 12/14/2023 at 12:45 EST. Orders: Orders DNA Analysis Hemochromatosis Today R79.89 - Other specified abnormal findings of blood chemistry ECG 3 day holter monitor Today I49.9 - Cardiac arrhythmia, unspecified, R94.31 - Abnormal electrocardiogram [ECG] [EKG] Referrals Hematology & Oncology Referral R79.89 - Other specified abnormal findings of blood chemistry Coding Level of Care Code Est Pt Prev Care >65y(63311) Diagnoses Elevated ferritin R79.89 Irregular heart rhythm I49.9 Abnormal EKG R94.31 Additional Codes GUERA-7 Assessment Billing - GUERA-7 Assessment Tool: GUERA-7 Assessment 52957 ([id number])
[2023-12-14 12:35] VITALS: BP 110/70; PULSE 102; O2SAT 97; BMI 31.2
== END 2023-12-14 14:21 | disposition home or self-care (01) ==
PROVIDERS: Visit Provider Nurse Practitioner Family
DX: Z00.00 Encounter for general adult medical examination without abnormal findings (principal); R79.89 Other specified abnormal findings of blood chemistry; I49.9 Cardiac arrhythmia, unspecified; R94.31 Abnormal electrocardiogram [ECG] [EKG]
CPT/HCPCS: 99397

== ENCOUNTER → 2024-01-11 13:26 | Outpatient (REF) | payer MEDICARE, SELFPAY ==
--- NOTE | 2024-01-19 07:00 | HM_ITS ---
Conclusion: 1. Patient was monitored for total period of 3 days 2. Baseline was normal sinus rhythm with average heart of 73 beats per minute 3. No significant pauses noted 4. Frequent PACs noted with total burden of 21% with multiple SVT runs, longest lasting 14 beats and the fastest at 134 beats per minute consistent with most likely atrial tachycardia 5. Occasional PVCs noted 6. No patient reported events MTDD
== END ==
LOC: HO.CARD 13:26
PROVIDERS: Visit Provider Nurse Practitioner Family
DX: I49.8 Other specified cardiac arrhythmias (principal); R94.31 Abnormal electrocardiogram [ECG] [EKG]
CPT/HCPCS: 93242

== ENCOUNTER → 2024-01-13 13:59 | Outpatient (BNV) | payer MEDICARE, SELFPAY | PROVIDERS: PCP Nurse Practitioner Family; Referring Provider Nurse Practitioner Family; Visit Provider Internal Medicine | DX: R79.89 Other specified abnormal findings of blood chemistry (principal) | CPT/HCPCS: 99204; 99214; G2211 ==

== ENCOUNTER → 2024-01-19 07:00 | Outpatient (BNV) | payer MEDICARE, SELFPAY | PROVIDERS: Visit Provider Internal Medicine Cardiovascular Disease | DX: I49.1 Atrial premature depolarization (principal) | CPT/HCPCS: 93244 ==

== ENCOUNTER 2024-03-11 13:40 | Outpatient (REF) | payer MEDICARE, SELFPAY ==
[2024-03-11 16:51] LABS: TSH reflex Free T4 3.24 uIU/mL (0.32-4.0)
== END 2024-03-11 13:41 | disposition home or self-care (01) ==
LOC: HO.HMGCLDS 13:40
PROVIDERS: PCP Nurse Practitioner Family; Visit Provider Nurse Practitioner Family
DX: R94.6 Abnormal results of thyroid function studies (principal)
CPT/HCPCS: 36415; 84443

== ENCOUNTER 2024-04-06 13:47 | Outpatient (AMB) | payer MEDICARE, SELFPAY ==
[2024-04-06 13:54] VITALS: BP 112/70; PULSE 82; O2SAT 94; BMI 31.6
--- NOTE | 2024-04-06 13:54 | A.OFFPC_ITS ---
Vital Signs 04/06/24 13:54 Height 5 ft 9 in Weight 214 lb BMI 31.6 BP 112/70 Blood Pressure Location Rt brachial Position Sitting Pulse 82 Pulse Source Pulse Oximeter Pulse Oximetry (%) 94 Oxygen Delivery Method Room Air Intake Visit Reasons: 4M F/U Labs Intake Note: pt is here for 4 month follow up with labs [employer] Prospect[employer] Operator Required: No Accompanied by: Self / Same As Patient Allergies No Known Allergies Allergy (Verified 04/06/24 14:19) Medication List - Last Reconciled 04/06/24 by JESUS Bowen amlodipine 10 mg PO DAILY hydrochlorothiazide 25 mg PO DAILY levothyroxine 50 mcg PO DAILY lisinopril 20 mg PO DAILY 90 days metoprolol tartrate 50 mg PO BID 90 days Tobacco use date assessed: 04/06/24 Fall risk assessment: No Falls in past year Last assessed Fall Risk: 04/06/24 Dental Screening Dental Screen Date: 09/30/23 HPI 4M F/U Labs HPI Details HTN: Blood pressure is stable, managed with amlodipine 10mg, hydrochlorothiazide 25mg, lisinopril 20mg, and metoprolol 50mg bid. Pt is following up with cardiology. Denies chest pain, shortness of breath, headache, dizziness, and blurred vision. Pt reports swelling of his BLE. He reports that this goes away when lying down and it does not bother him. ? related to amlodipine. Will order BNP. Echo was ordered by cardiology, will check on this. [facility] Medical History Arthritis Surgical History Hx of colonoscopy Hx of right knee surgery Family History Father No problems noted. Mother No problems noted. Social History Household Members: Spouse Housing: House Patient Tobacco Use Status: Never used Tobacco e-Cigarette/Vaping Use: Never Used Current occupational status: retired Cognitive needs: No Hearing needs: No Vision needs: No Questionnaire PHQ-9 Over the last 2 weeks, how often have you been bothered by any of the following problems? 1. Little interest or pleasure in doing things: not at all 2. Feeling down, depressed, or hopeless: not at all 3. Trouble falling or staying asleep, or sleeping too much: not at all 4. Feeling tired or having little energy: not at all 5. Poor appetite or overeating: not at all 6. Feeling bad about yourself - or that you are a failure or have let yourself or your family down: not at all 7. Trouble concentrating on things, such as reading the newspaper or watching television: not at all 8. Moving or speaking so slowly that other people could have noticed. Or the opposite - being so fidgety or restless that you have been moving around a lot more than usual: not at all 9. Thoughts that you would be better off or of hurting yourself in some way: not at all Total score: 0 Depression Screening Interpretation: Negative Depression Screening Done: Yes 13248 - PHQ-9 Billing: Yes Source: Developed by Drs. Terry Cline, Shagufta Moreno, John Leo and colleagues, with an educational sandhya from [employer]. Thrive Questionnaire Date Thrive assessed: 04/06/24 I am a: Patient What is your living situation today?: I have a steady place to live Within the past 12 months, did the food you bought not last and you didn't have the money to get more?: Never true Within the past 12 months, did you worry whether your food would run out before you got money to buy more?: Never true Do you have trouble paying for medicines?: No Do you have trouble getting transportation to medical appointments?: No Do you have trouble paying your heating and electricity bill?: No Do you have trouble taking care of your child, family member or friend?: No Do you have trouble with day-to-day activities such as bathing, preparing meals, shopping, managing finances, etc.?: No Are you currently unemployed and looking for a job?: No Are you interested in more education?: No Please select the resources that you would like help with: Housing/Assisted Currently or been in a relationship where the following occur: No concerns reported THRIVE Score: 0 AUDIT C Alcohol Use Questionnaire (AUDIT-C) 1. How often do you have a drink containing alcohol?: 2-4 times a month 2. How many drinks containing alcohol do you have on a typical day when you are drinking?: 1 or 2 3. How often do you have six or more drinks on one occasion?: Never Total Score: 2 Score Reviewed/Action Taken: Yes GUERA-7 AMB Questionnaire GUERA-7 Date GUERA - 7 assessed: 04/06/24 Feeling nervous, anxious, or on edge: 0 = Not at all Not being able to stop or control worryin = Not at all Worrying too much about different things: 0 = Not at all Trouble relaxin = Not at all Being so restless that it is hard to sit still: 0 = Not at all Becoming easily annoyed or irritable: 0 = Not at all Feeling afraid as if something awful might happen: 0 = Not at all Total GUERA-7 score (0-4 normal; 5-9 mild; 10-14 moderate; 15-21 severe): 0 Source: Developed by Drs. Terry Cline, Shagufta Moreno, John Leo and colleagues, with an educational sandhya from [employer]. GUERA-7 Assessment Billing GUERA-7 Assessment Tool: GUERA-7 Assessment 33440 Review of Systems Const Reports as per HPI Physical exam (Primary Care) Vital Signs: Last Vital Signs Pulse 82 04/06/24 13:54 BP 112/70 04/06/24 13:54 Pulse Ox 94 04/06/24 13:54 Oxygen Delivery Method Room Air 04/06/24 13:54 BMI result Body Mass Index 31.6 Tobacco/Smoking Status: Tobacco use Status Tobacco use date assessed 04/06/24 04/06/24 13:55 Patient Tobacco Use Status Never used Tobacco 04/06/24 13:55 e-Cigarette/Vaping Use Never Used 04/06/24 13:55 PHQ-9: PHQ-9 Score PHQ-9: Total score 0 04/06/24 15:44 Depression Screening Interpretation: Negative Thrive Assessment: Date of Thrive Assessment Date Thrive assessed 04/06/24 04/06/24 13:55 Currently or been in a relationship where the following occur: No concerns reported Const General: cooperative Orientation/consciousness: patient oriented x3 Resp Effort & Inspection: normal respiratory effort Auscultation: clear to auscultation bilaterally Cardio Rate: regular rate Rhythm: regular rhythm Heart sounds: S1 normal heart sound present and S2 normal heart sound present Neuro General: patient oriented x3 Extrem Right lower extremity: edema Details: pitting and 1+ Left lower extremity: edema Details: pitting and 1+ Psych Appearance: grossly normal Mental Status: mental status grossly normal Speech and movement: Normal speech and movement present Affect: normal affect Attitude: cooperative Thought process: Normal thought process present Thought content: Normal thought content present Insight: Good insight present (Psych) Judgement: Good judgement present (Psych) Assessment and Plan Assessment & Plan (1) Essential hypertension: Code(s): I10 - Essential (primary) hypertension Plan: stable, labs ordered, follow up with cardio, echo ordered by cardio, will check on status and follow up appt date/time Plan The patient agreed to the use of a medical reviewer for this encounter. Scribed for JESUS Fallon by Carolina Guajardo medical reviewer, on 04/06/2024 at 14:10 EST. Orders: Orders TSH reflex Free T4 Today I10 - Essential (primary) hypertension, R60.9 - Edema, unspecified B Type Natriuretic Peptide Today I10 - Essential (primary) hypertension, R60.9 - Edema, unspecified Complete Blood Count Auto Diff Today I10 - Essential (primary) hypertension, R60.9 - Edema, unspecified Comprehensive [place]. Panel Fast Today I10 - Essential (primary) hypertension, R60.9 - Edema, unspecified UA CC w/rflx Micro + Cult Today I10 - Essential (primary) hypertension, R60.9 - Edema, unspecified Lipid Panel Today I10 - Essential (primary) hypertension, R60.9 - Edema, unspecified Coding Level of Care Code Est Pt Level 3 (05045) Diagnoses Essential hypertension I10 Additional Codes GUERA-7 Assessment Billing - GUERA-7 Assessment Tool: GUERA-7 Assessment 97104 ([id number])
== END 2024-04-06 15:37 | disposition home or self-care (01) ==
PROVIDERS: PCP Nurse Practitioner Family; Visit Provider Nurse Practitioner Family
DX: I10 Essential (primary) hypertension (principal)
CPT/HCPCS: 99213

== ENCOUNTER → 2024-05-25 14:54 | Outpatient (REF) | payer MEDICARE, SELFPAY ==
--- NOTE | 2024-05-25 14:56 | CA_ITS ---
Transthoracic Echocardiogram Patient (Last, First, Middle): Vipul Patterson, Gender: Male Date of : 1950 Age: 73 Procedure Date: 05/25/2024 Procedure Type: Transthoracic Echocardiogram Location: OP Height: 175.26 cm Weight: 93.9 kg BSA: 2.10 m2 Heart Rate: bpm BP: 120 / 64 mmHg Facilities Assistant: DAJUAN Referring MD: Haydee Dominguez NP Symptoms: R94.31 - Abnormal electrocardiogram [ECG] [EKG] Study Quality: Fair ECG Rhythm: Atrial Fibrillation Conclusions: - The left ventricular systolic function is normal. The calculated ejection fraction is 62% by biplane method. - No obvious valvular pathology seen on this study. Findings Left Ventricle Normal left ventricular cavity size. There is mildly increased left ventricular wall thickness. The left ventricular systolic function is normal. The calculated ejection fraction is 62% by biplane method. There is no evidence of regional wall motion abnormalities. Diastolic function is indeterminate on the basis of available data. Right Ventricle Mildly increased right ventricular cavity size. There is low normal right ventricular systolic function. Atria Moderate biatrial enlargement. Aortic Valve There is a normal trileaflet aortic valve. There is no aortic valve stenosis. There is no aortic valve regurgitation. Mitral Valve The mitral valve appears normal. There is mild mitral valve regurgitation. There is no mitral valve stenosis. Pulmonic Valve The pulmonic valve is likely normal. Tricuspid Valve There is mild tricuspid valve regurgitation. Mild pulmonary hypertension is present. Great Vessels The asc aorta is normal in size. Small plaque is seen in the sino tubular ridge. Venous The inferior vena cava is mildly dilated and collapses less than 50% with inspiration. Pericardium/Pleural There is no evidence of pericardial effusion. Prior Study Comparison No significant change compared to prior study dated: 07/15/2021. Recommendations, Care & Conclusions No obvious valvular pathology seen on this study. Measurements 2D Linear Measurements IVSd: 1.07 0.6-0.9/0.6-1.0 cm LVIDd: 4.52 3.9-5.3/4.2-5.9 cm LVIDd Index: 2.15 2.4-3.2/2.2-3.1 cm/m2 LVIDs: 2.92 2.0-3.6 cm LVPWd: 1.15 0.7-1.1 cm LA Diam: 4.00 2.7-3.8/3.0-4.0 cm LAIDs Index: 1.90 1.5-2.3 cm/m2 LV Mass: 222.39 67-162/88-224 g LV Mass Index: 105.90 43-95/49-115 g/m2 LVOT Diam: 2.10 3.0+(-)1.3 cm 2D Systolic Function EF 4C: 60.60 >55% EF 2C: 64.00 >55% EF BiP: 62.00 >55% Mitral Valve MV Pk E: 0.92 MV Decel Time: 222.00 E'Lateral: 10.70 E'Medial: 5.94 E/E' Med: 15.50 E/E' Lat: 8.60 PHT: 65.00 MVA PHT: 3.38 Decel [place]: 4.23 Aortic Valve AoV Pk Ferny: 1.17 AoV Mn Ferny: 0.82 AoV VTI: 0.27 AoV Pk Grad: 5.00 Aov Mn Grad: 3.00 LILY Cont.VTI: 2.64 LVOT LVOT Pk Ferny: 0.95 LVOT Mn Ferny: 0.62 LVOT VTI: 0.21 LVOT Pk Grad: 4.00 LVOT Mn Grad: 2.00 LVOT Diam: 2.10 LVOT Area: 3.46 Diastolic Function MV Pk E: 0.92 E'Medial: 5.94 E/E' Med: 15.50 E' Laterial: 10.70 E/E' Lat: 8.60 Right Ventricle TAPSE (mm): 16.10 TVS' Ferny: 10.70 Tricuspid Valve TR Pk Ferny: 2.52 TR Pk Grad: 25.00 RA Press: 15.00 RVSP: 40.00 Great Vessels Aorta Sinus of Valsalva: 3.70 2.0-3.[address] [place]: 2.58 1.7-3.4 cm Ao Asc: 3.70 2.1-3.4 cm Updated in Other Vendor System with Status of Final Prasanna Chand MD electronically signed on 05/26/2024 12:29:05 PM with status of Final
== END ==
LOC: HO.CARD 14:54
PROVIDERS: PCP Nurse Practitioner Family; Visit Provider Nurse Practitioner
DX: R94.31 Abnormal electrocardiogram [ECG] [EKG] (principal); I10 Essential (primary) hypertension; I49.8 Other specified cardiac arrhythmias
CPT/HCPCS: 93306

== ENCOUNTER → 2024-05-25 14:56 | Outpatient (BNV) | payer MEDICARE, SELFPAY | PROVIDERS: PCP Nurse Practitioner Family; Visit Provider Internal Medicine | DX: I34.0 Nonrheumatic mitral (valve) insufficiency (principal); I36.1 Nonrheumatic tricuspid (valve) insufficiency | CPT/HCPCS: 93306 ==

== ENCOUNTER → 2024-06-10 08:23 | Outpatient (REF) | payer MEDICARE, SELFPAY ==
--- NOTE | ~2024-06-10 | NM_ITS ---
Lexiscan Myocardial perfusion study Indication: Abnormal EKG to evaluate for myocardial ischemia Technique: The patient was brought in for a Lexiscan perfusion study on 06/10/2024 and was injected 0.4 mg of Lexiscan intravenously. Within a minute of this injection 30 mCi of sestamibi was given intravenously. Images were obtained using the SPECT gamma camera interlaced with the gating device. Images were obtained in supine position. Resting perfusion study was performed on 06/14/2024. Patient was administered 30 mCi of sestamibi intravenously at rest. Images were then obtained in supine position. Images obtained without without CT attenuation. Total DLP 116 mGy-cm. Images were processed with the software and compared side to side in short axis, horizontal long axis and vertical long axis views. Findings: The stress perfusion study showed nontender images show mildly reduced uptake in the basal inferior wall of the LV myocardium. Remainder of the LV myocardium is normally perfused. Attenuated corrected images show minimal thinning of the apex of the LV myocardium.. The gated study shows normal LV systolic function with calculated LVEF of 73%. LV cavity is normal in size. The gated study shows normal systolic wall thickening and contraction of segments. Resting study shows no change in perfusion pattern compared to stress perfusion study. Gating at rest reveals normal systolic wall motion with ejection fraction at 70%. The findings are consistent with normal myocardial perfusion. NM/NM cardiolite stress test Impression: 1. Myocardial perfusion imaging study shows normal myocardial perfusion 2. Gated LVEF is 73% 3. Transient ischemic dilatation not present Nondiagnostic changes on EKG. Electronically signed by: Bryant Schwarz MD 06/14/2024 04:29 PM EDT
--- NOTE | 2024-06-10 08:27 | CA_ITS ---
Acquisition Time: 2024-06-10 08:32:38 Total Exercise Time: 00:02:00 Test Indications: Abnormal ECG Medications: AMLODIPINE HCTZ LEVOTHYROXINE LISINOPRIL METOPROLOL Protocol: LEXISCAN Max HR: 079 BPM 54% of Pred: 145 BPM Max BP: 120/064 mmHG Max Work Load: 1.6 METS Pharmacological stress test with Lexiscan injection, while walking slow on treadmill, without anginal symptoms, with new finding of atrial fibrillation at baseline and no other arrythmia during test, with normpotensive response to injection, with nondiagnostic EKG for ischemia. Nuclear images pending. Test reviewed with Dr Schwarz. Holter monitor ordered. Pt already on metoprolol. Will be evaluating for anticoagulation use. Referred By: Haydee Dominguez Overread By: CHARMAINE AVILES
--- NOTE | 2024-06-10 09:51 | HM_ITS ---
* Total monitoring time 1 day 18 hours. * Underlying rhythm is atrial fibrillation. Average ventricular rate 56/Min. * Rare ventricular ectopy. * No significant pauses or high-grade AV blocks. * No patient markers or diary events. MTDD
== END ==
LOC: HO.CARD 08:23
PROVIDERS: PCP Nurse Practitioner Family; Visit Provider Nurse Practitioner
DX: I49.8 Other specified cardiac arrhythmias (principal); I10 Essential (primary) hypertension; I48.91 Unspecified atrial fibrillation; R94.31 Abnormal electrocardiogram [ECG] [EKG]
CPT/HCPCS: 78452; 93017; 93242; A9500; J0280; J2785

== ENCOUNTER → 2024-06-10 08:27 | Outpatient (BNV) | payer MEDICARE, SELFPAY | PROVIDERS: PCP Nurse Practitioner Family; Visit Provider Nurse Practitioner Family | DX: I48.91 Unspecified atrial fibrillation (principal) | CPT/HCPCS: 78452; 93016; 93018; 93227 ==

== ENCOUNTER 2024-06-20 09:58 | Outpatient (AMB) | payer MEDICARE, SELFPAY ==
[2024-06-20 10:04] VITALS: BP 138/80; PULSE 74; O2SAT 98; BMI 33.4
--- NOTE | 2024-06-20 10:04 | A.OFFPC_ITS ---
Vital Signs 06/20/24 10:04 Height 5 ft 9 in Weight 226 lb 8 oz BMI 33.4 BP 138/80 Blood Pressure Location Lt brachial Position Sitting Pulse 74 Pulse Source Pulse Oximeter Pulse Oximetry (%) 98 Oxygen Delivery Method Room Air Intake Visit Reasons: swelling in lower legs Intake Note: Pt is here today for leg swelling pt states its been on going for weeks now. Allergies No Known Allergies Allergy (Verified 06/20/24 12:14) Medication List - Last Reconciled 06/20/24 by JESUS Bowen amlodipine 5 mg PO DAILY apixaban (Eliquis) 5 mg PO BID hydrochlorothiazide 25 mg PO DAILY levothyroxine 50 mcg PO DAILY lisinopril 30 mg PO DAILY 90 days metoprolol tartrate 50 mg PO BID 90 days Tobacco use date assessed: 06/20/24 Fall risk assessment: 1 Fall in past year Last assessed Fall Risk: 06/20/24 Dental Screening Dental Screen Date: 06/20/24 Did you have a dental visit in the last 12 months?: Yes Did you have a dental problem in the last 6 months where you did not have access to dental care?: No Was dental information given to patient?: Patient has dentist HPI swelling in lower legs HPI Details Pt c/o ongoing swelling of his BLE. He has had a holter, echo, and stress test (appeared benign). Will order venous US and labs including BNP. Will decrease amlodipine from 10mg to 5mg. Will also increase lisinopril from 20mg to 30mg. He will monitor his BP at home. Denies chest pain, shortness of breath, headache, dizziness, and blurred vision. Pt is following up with cardiology. Pt reports early satiety. He has some nausea and lower appetite. Denies any change in bowel habits. Labs were ordered by hematology in December to look at his liver which were abnormal. He was not referred to GI at the time, will refer. COUNT INCLUDES THE [facility] Medical History Arthritis Surgical History Hx of colonoscopy Hx of right knee surgery Family History Father No problems noted. Mother No problems noted. Social History Household Members: Spouse Housing: House Patient Tobacco Use Status: Never used Tobacco e-Cigarette/Vaping Use: Never Used service: No Current occupational status: retired Cognitive needs: No Hearing needs: No Vision needs: No Questionnaire PHQ-9 Over the last 2 weeks, how often have you been bothered by any of the following problems? 1. Little interest or pleasure in doing things: not at all 2. Feeling down, depressed, or hopeless: not at all 3. Trouble falling or staying asleep, or sleeping too much: not at all 4. Feeling tired or having little energy: not at all 5. Poor appetite or overeating: not at all 6. Feeling bad about yourself - or that you are a failure or have let yourself or your family down: not at all 7. Trouble concentrating on things, such as reading the newspaper or watching television: not at all 8. Moving or speaking so slowly that other people could have noticed. Or the opposite - being so fidgety or restless that you have been moving around a lot more than usual: not at all 9. Thoughts that you would be better off or of hurting yourself in some way: not at all Total score: 0 Depression Screening Interpretation: Negative Depression Screening Done: Yes 26025 - PHQ-9 Billing: Yes Source: Developed by Drs. Terry Cline, Shagufta Moreno, John Leo and colleagues, with an educational sandhya from [employer]. Thrive Questionnaire Date Thrive assessed: 06/20/24 I am a: Patient What is your living situation today?: I have a steady place to live Within the past 12 months, did the food you bought not last and you didn't have the money to get more?: Never true Within the past 12 months, did you worry whether your food would run out before you got money to buy more?: Never true Do you have trouble paying for medicines?: No Do you have trouble getting transportation to medical appointments?: No Do you have trouble paying your heating and electricity bill?: No Do you have trouble taking care of your child, family member or friend?: No Do you have trouble with day-to-day activities such as bathing, preparing meals, shopping, managing finances, etc.?: No Are you currently unemployed and looking for a job?: No Are you interested in more education?: No Please select the resources that you would like help with: None Currently or been in a relationship where the following occur: No concerns reported THRIVE Score: 0 AUDIT C Alcohol Use Questionnaire (AUDIT-C) 1. How often do you have a drink containing alcohol?: 2-4 times a month 2. How many drinks containing alcohol do you have on a typical day when you are drinking?: 1 or 2 3. How often do you have six or more drinks on one occasion?: Never Total Score: 2 Score Reviewed/Action Taken: Yes GUERA-7 AMB Questionnaire GUERA-7 Date GUERA - 7 assessed: 06/20/24 Feeling nervous, anxious, or on edge: 0 = Not at all Not being able to stop or control worryin = Not at all Worrying too much about different things: 0 = Not at all Trouble relaxin = Not at all Being so restless that it is hard to sit still: 0 = Not at all Becoming easily annoyed or irritable: 0 = Not at all Feeling afraid as if something awful might happen: 0 = Not at all Total GUERA-7 score (0-4 normal; 5-9 mild; 10-14 moderate; 15-21 severe): 0 Source: Developed by Drs. Terry Cline, Shagufta Moreno, John Leo and colleagues, with an educational sandhya from [employer]. GUERA-7 Assessment Billing GUERA-7 Assessment Tool: GUERA-7 Assessment 58086 Review of Systems Const Reports as per HPI Physical exam (Primary Care) Vital Signs: Last Vital Signs Pulse 74 06/20/24 10:04 BP 138/80 06/20/24 10:04 Pulse Ox 98 06/20/24 10:04 Oxygen Delivery Method Room Air 06/20/24 10:04 BMI result Body Mass Index 33.4 Tobacco/Smoking Status: Tobacco use Status Tobacco use date assessed 06/20/24 06/20/24 10:08 Patient Tobacco Use Status Never used Tobacco 06/20/24 10:08 e-Cigarette/Vaping Use Never Used 10/21/24 10:08 PHQ-9: PHQ-9 Score PHQ-9: Total score 0 06/20/24 10:17 Depression Screening Interpretation: Negative Thrive Assessment: Date of Thrive Assessment Date Thrive assessed 06/20/24 06/20/24 10:08 Currently or been in a relationship where the following occur: No concerns reported Const General: cooperative Nutritional Appearance: obese Orientation/consciousness: patient oriented x3 Resp Effort & Inspection: normal respiratory effort Auscultation: clear to auscultation bilaterally Cardio Rate: regular rate Rhythm: abnormal rhythm irregularly irregular Heart sounds: S1 normal heart sound present and S2 normal heart sound present Neuro General: patient oriented x3 Extrem Right lower extremity: edema Details: pitting and 2+ Left lower extremity: edema Details: pitting and 2+ Psych Appearance: grossly normal Mental Status: mental status grossly normal Speech and movement: Normal speech and movement present Affect: normal affect Attitude: cooperative Thought process: Normal thought process present Thought content: Normal thought content present Insight: Good insight present (Psych) Judgement: Good judgement present (Psych) Coding Level of Care Code Est Pt Level 3 (89946) Diagnoses Edema R60.9 Early satiety R68.81 Additional Codes GUERA-7 Assessment Billing - GUERA-7 Assessment Tool: GUERA-7 Assessment 13833 ([id number]) Assessment & Plan Assessment & Plan (1) Edema: Code(s): R60.9 - Edema, unspecified Category: Medical Plan: Labs and venous US ordered, decreasing amlodipine from 10mg to 5mg, increasing lisinopril (2) Early satiety: Code(s): R68.81 - Early satiety Category: Medical Plan: Referred to GI Plan The patient agreed to the use of a medical care administrator for this encounter. Scribed for JESUS Fallon by Carolina uGajardo medical care administrator, on 06/20/2024 at 10:15 EST. Orders: Orders US abdomen klein w elastography Today R74.8 - Abnormal levels of other serum enzymes US venous duplex LE BI Today R60.9 - Edema, unspecified B Type Natriuretic Peptide Today R60.9 - Edema, unspecified Complete Blood Count Auto Diff Today R60.9 - Edema, unspecified Comprehensive Met. Panel Today R60.9 - Edema, unspecified TSH reflex Free T4 Today R60.9 - Edema, unspecified Referrals Gastroenterology Referral R68.81 - Early satiety, R74.8 - Abnormal levels of other serum enzymes Medications: Changed From amlodipine 10 mg PO DAILY 90 tabs 3RF To amlodipine 5 mg PO DAILY 90 tabs 3RF From lisinopril 20 mg PO DAILY 90 tabs 1RF 90 days To lisinopril 30 mg PO DAILY 90 tabs 1RF 90 days
== END 2024-06-20 11:38 | disposition home or self-care (01) ==
PROVIDERS: PCP Nurse Practitioner Family; Visit Provider Nurse Practitioner Family
DX: R60.9 Edema, unspecified (principal); R68.81 Early satiety

== ENCOUNTER → 2024-06-20 09:58 | Outpatient (BNVA) | payer MEDICARE, SELFPAY | PROVIDERS: PCP Nurse Practitioner Family; Visit Provider Nurse Practitioner Family | DX: R74.8 Abnormal levels of other serum enzymes (principal) ==

== ENCOUNTER 2024-06-20 10:38 | Outpatient (REF) | payer MEDICARE, SELFPAY ==
[2024-06-20 13:17] LABS: MANUAL DIFF FLAG NO
[2024-06-20 13:29] LABS: Basophils Percent Auto 0.5 % (0-2); Eosinophils Absolute Auto 0.1 X10*3/uL (0.0-0.4); Eosinophils Percent Auto 0.9 % (0-4); Hematocrit 40.7 % (42.0-52.0); Hemoglobin 14.1 g/dl (14.0-18.0); Imm Gran Abs Auto 0.03 X10*3/uL (0.00-0.03); Imm Gran Pct Auto 0.4 % (0.0-0.4); Lymphocytes Absolute Auto 1.2 X10*3/uL (1.2-4.9); Lymphocytes Percent Auto 15.4 % (20-40); Mean Corpuscular HGB Conc 34.6 g/dl (31.0-36.0); Mean Corpuscular Volume 92.3 fL (80.0-98.0); Mean Platelet Volume 9.5 fL (9.4-12.4); Monocytes Absolute Auto 0.7 X10*3/uL (0.1-1.2); Monocytes Percent Auto 9.2 % (2-11); Neutrophils Absolute Auto 5.5 x10*3/uL (2.0-8.3); Neutrophils Percent Auto 73.6 % (45-73); Platelet Count 220 X10*3/uL (160-400); Red Blood Count 4.41 X10*6/uL (4.60-5.80); Red Cell Distribution Width 14.3 % (11.0-16.0); White Blood Count 7.5 X10*3/uL (4.8-10.8)
[2024-06-20 13:53] LABS: Alanine Aminotransferase 18 U/L (0-40); Alkaline Phosphatase 64 U/L (39-117); Anion Gap 15 (12-20); Aspartate Amino Transferase 42 U/L (5-37); Bilirubin Total 1.1 mg/dL (0.0-1.0); Blood Urea Nitrogen 17 mg/dL (9-16); Calcium 9.1 mg/dL (8.4-10.2); Carbon Dioxide 21 mmol/L (22-29); Chloride 100 mmol/L (96-108); Estimated Glomerular Filt Rate 60; Glucose Random 108 mg/dL (60-115); Potassium 4.1 mmol/L (3.3-5.1); Sodium 132 mmol/L (135-145); TSH reflex Free T4 5.89 uIU/mL (0.32-4.0)
[2024-06-20 14:16] LABS: B Type Natriuretic Peptide 364 pg/mL (<100)
[2024-06-20 14:24] LABS: Free T4 (Free Thyroxine) 1.11 ng/dL (0.71-1.85)
== END 2024-06-20 10:39 | disposition home or self-care (01) ==
LOC: HO.HMGCLDS 10:38
PROVIDERS: PCP Nurse Practitioner Family; Visit Provider Nurse Practitioner Family
DX: R60.9 Edema, unspecified (principal); R68.81 Early satiety
CPT/HCPCS: 36415; 80053; 83880; 84439; 84443; 85025; 96127; 99212

== ENCOUNTER 2024-07-04 12:49 | Outpatient (AMB) | payer MEDICARE, SELFPAY ==
--- NOTE | 2024-07-04 12:53 | MHC.OFFVIS ---
Vital Signs 07/04/24 12:54 Height 5 ft 9 in Weight 212 lb 1.355 oz BMI 31.3 BP 114/52 L Blood Pressure Location Lt brachial Position Sitting Pulse 67 Pulse Source Monitor Intake Visit Reasons: *2-3 f/up new afib per DC Production Supervisor Trainee Required: No Consulting Practice Director: Consulting Practice Director Present Allergies No Known Allergies Allergy (Verified 07/04/24 12:56) Medication List - Last Reconciled 07/05/24 by Louise Brizuela NP-C amlodipine 5 mg PO DAILY apixaban (Eliquis) 5 mg PO BID furosemide 20 mg PO DAILY levothyroxine 75 mcg PO DAILY lisinopril 30 mg PO DAILY 90 days metoprolol tartrate 50 mg PO BID 90 days HPI HPI *2-3 f/up new afib per DC: Details: Vipul is a 73-year-old male with past medical history of hypertension, frequent PACs who recently had nuclear stress test at which time he was found to have new onset atrial fibrillation. He was started on anticoagulation, Holter monitor completed and he now presents for follow-up. Today he reports that he has not been feeling as well as he used to. He is noticing some shortness of breath with activity. No PND, orthopnea. He does have leg edema which he said was up to his thighs but has improved some. His amlodipine dose had been reduced and he was started on low-dose diuretic by his PCP. No chest discomfort at rest or with activity. No heart palpitations, lightheadedness, presyncope, syncope. He does only light physical activities. No bleeding issues reported with anticoagulation use. is present. [facility] Medical History Arthritis Surgical History Hx of colonoscopy Hx of right knee surgery Family History Father No problems noted. Mother No problems noted. Social History Household Members: Spouse Housing: House Patient Tobacco Use Status: Never used Tobacco e-Cigarette/Vaping Use: Never Used service: No Current occupational status: retired Cognitive needs: No Hearing needs: No Vision needs: No Review of Systems Const All systems reviewed & are unremarkable except as noted in HPI and below ENT Denies dizziness Card Denies chest pain, Denies chest pain at rest, Denies chest pain with activity, Denies rapid heart rate, Denies pedal edema, Denies edema, Reports leg edema, Denies lightheadedness, Denies palpitations, Reports dyspnea, Reports dyspnea on exertion and Denies orthopnea Resp Denies cough, Reports dyspnea and Reports dyspnea on exertion GI Denies hematochezia and Denies change in stool character Musc Denies abnormal gait, Denies limited range of motion, Denies muscle cramps, Denies muscle weakness, Denies numbness, Denies radiating pain into limb, Denies stiffness and Denies tingling Neuro Denies abnormal gait, Denies dizziness, Denies numbness and Denies tingling Endo Denies palpitations Physical Exam Vital Signs: Last Vital Signs Pulse 67 07/04/24 12:54 BP 114/52 L 07/04/24 12:54 BMI result Body Mass Index 31.3 Const General: cooperative, healthy appearing, comfortable and no acute distress Orientation/consciousness: patient oriented x3 Neck Neck: Yes normal visual inspection Resp Effort & Inspection: normal respiratory effort Auscultation: clear to auscultation bilaterally, no rales, no rhonchi and no wheezes Cardio Jugular venous distension: no JVD Rate: regular rate Heart sounds: S1 normal heart sound present, S2 normal heart sound present, no gallops, no murmurs and no rubs Neuro General: patient oriented x3 Extrem Other: +2 pitting edema of lower legs Psych Appearance: grossly normal Mental Status: mental status grossly normal Speech and movement: Normal speech and movement present Office Procedures EKG Details: Today, read by me, atrial fibrillation, T-wave abnormality inferior lateral leads, QTC 477 milliseconds, rate 67 [id number], Complete Assessment & Plan Assessment & Plan (1) New onset a-fib: Code(s): I48.91 - Unspecified atrial fibrillation Category: Medical Plan: History of frequent PACs. A Holter monitor done 01/11/24 shows sinus rhythm with PACs 20.94% of the time, rare PVCs, longest SVE run 14 beats. He underwent a nuclear stress test on 06/10/2024 which showed normal myocardial perfusion imaging. At the time of the stress test he was identified to have a new finding of atrial fibrillation. Recent labs had shown normal kidney function, hematocrit 40.7. No history of bleeding issues. At that time he was started on Eliquis for anticoagulation. He was on metoprolol and his dose was continued. Holter monitor applied on 06/10/2024 for 1 day 18 hours showed atrial fibrillation with average heart rate 56, rare ventricular ectopy. He was experiencing leg edema and his PCP reduced his amlodipine from 10 mg daily down to 5 mg daily. His hydrochlorothiazide was changed to Lasix 20 mg daily. Today he reports some improvement in leg edema though it is still present. Also reports some shortness of breath with physical activity. His lungs are clear on examination. BNP 364 on 06/20/2024. Echocardiogram was done on 05/25/2024 showing EF 62%, no valve abnormalities, moderate biatrial enlargement. EKG done today showing atrial fibrillation with T-wave abnormality in the inferior lateral leads, rate 67. With his low average heart rate on Holter monitor will reduce his metoprolol down to 50 mg in the a.m. and 25 mg in the p.m.. Continue Eliquis. Will give coupon today for free 30 day supply of Eliquis. Tells me he can not afford Eliquis mcfp and we will need to change to Coumadin in the near future. Will discuss case with his primary tool rental technician and arrange for cardioversion in the near future if he agrees. Cardioversion procedure discussed with patient and he states understanding. Repeat labs are pending. He may benefit from increase diuretic dose if kidney function allows. Cardiology follow-up in 2 months, sooner if needed. (2) Essential hypertension: Code(s): I10 - Essential (primary) hypertension Category: Medical Plan: History of hypertension. Blood pressure currently normal range. I am adjusting metoprolol dose. Continue amlodipine, Lasix, lisinopril without change. (3) Atrial arrhythmia: Code(s): I49.8 - Other specified cardiac arrhythmias Category: Medical Plan: History of very frequent PACs. He had been on metoprolol to help suppress. He now is in atrial fibrillation as above. (4) Edema: Code(s): R60.9 - Edema, unspecified Category: Medical Plan: As above (5) Shortness of breath: Code(s): R06.02 - Shortness of breath Category: Medical Plan: As above Plan Time spent on chart review, documentation, interview and assessment Medications: New metoprolol tartrate 25 mg orally 2 tablets in the a.m. and 1 tablet in the p.m.; Dose adjusted 90 days 270 tabs 1RF Discontinued metoprolol tartrate Discontinued Reason: Doctor's Order 50 mg PO BID 90 days 180 tabs 3RF I49.8 - Other specified cardiac arrhythmias Coding Level of Care Code Est Pt Level 4 (49563) Complex EM visit Add On G2211 Diagnoses New onset a-fib I48.91 Essential hypertension I10 Atrial arrhythmia I49.8 Edema R60.9 Shortness of breath R06.02 CPT Codes EKG - CPT: [id number], Complete ([id number]) Time Spent (min) 30
[2024-07-04 12:54] VITALS: BP 114/52; PULSE 67; BMI 31.3
== END 2024-07-04 13:31 | disposition home or self-care (01) ==
LOC: HO.HCS 12:50
PROVIDERS: PCP Nurse Practitioner Family; Visit Provider Nurse Practitioner Family
DX: I48.91 Unspecified atrial fibrillation (principal); I10 Essential (primary) hypertension; I49.8 Other specified cardiac arrhythmias; R60.9 Edema, unspecified; R06.02 Shortness of breath
CPT/HCPCS: 93010; 99214; G2211

== ENCOUNTER → 2024-07-04 12:49 | Outpatient (BNVA) | payer MEDICARE, SELFPAY | PROVIDERS: PCP Nurse Practitioner Family; Visit Provider Nurse Practitioner Family | DX: I48.91 Unspecified atrial fibrillation (principal); I49.8 Other specified cardiac arrhythmias; I10 Essential (primary) hypertension; R06.02 Shortness of breath; R60.9 Edema, unspecified | CPT/HCPCS: 93005; 99212 ==

== ENCOUNTER 2024-07-05 09:57 | Outpatient (REF) | payer MEDICARE, SELFPAY ==
[2024-07-05 13:30] LABS: MANUAL DIFF FLAG NO
[2024-07-05 13:43] LABS: Basophils Percent Auto 0.8 % (0-2); Eosinophils Absolute Auto 0.1 X10*3/uL (0.0-0.4); Eosinophils Percent Auto 1.8 % (0-4); Hematocrit 39.6 % (42.0-52.0); Hemoglobin 13.4 g/dl (14.0-18.0); Imm Gran Abs Auto 0.03 X10*3/uL (0.00-0.03); Imm Gran Pct Auto 0.6 % (0.0-0.4); Lymphocytes Absolute Auto 1.6 X10*3/uL (1.2-4.9); Lymphocytes Percent Auto 32.2 % (20-40); Mean Corpuscular HGB Conc 33.8 g/dl (31.0-36.0); Mean Corpuscular Hemoglobin 31.5 pg (27.0-33.0); Mean Corpuscular Volume 93.2 fL (80.0-98.0); Mean Platelet Volume 9.3 fL (9.4-12.4); Monocytes Absolute Auto 0.6 X10*3/uL (0.1-1.2); Monocytes Percent Auto 11.2 % (2-11); Neutrophils Absolute Auto 2.7 x10*3/uL (2.0-8.3); Neutrophils Percent Auto 53.4 % (45-73); Platelet Count 291 X10*3/uL (160-400); Red Blood Count 4.25 X10*6/uL (4.60-5.80); Red Cell Distribution Width 14.2 % (11.0-16.0); White Blood Count 5.1 X10*3/uL (4.8-10.8)
[2024-07-05 14:22] LABS: Alanine Aminotransferase 19 U/L (0-40); Albumin Level 3.6 g/dL (3.5-5.0); Alkaline Phosphatase 53 U/L (39-117); Anion Gap 15 (12-20); Aspartate Amino Transferase 41 U/L (5-37); Bilirubin Total 0.5 mg/dL (0.0-1.0); Blood Urea Nitrogen 18 mg/dL (9-16); Calcium 9.5 mg/dL (8.4-10.2); Carbon Dioxide 22 mmol/L (22-29); Chloride 99 mmol/L (96-108); Estimated Glomerular Filt Rate 41; Glucose Random 93 mg/dL (60-115); Potassium 3.6 mmol/L (3.3-5.1); Sodium 132 mmol/L (135-145); Total Protein 6.6 g/dL (6.5-8.0)
[2024-07-05 14:24] LABS: TSH reflex Free T4 2.37 uIU/mL (0.32-4.0)
[2024-07-05 14:44] LABS: B Type Natriuretic Peptide 432 pg/mL (<100)
== END 2024-07-05 09:58 | disposition home or self-care (01) ==
LOC: HO.HMGCLDS 09:57
PROVIDERS: PCP Nurse Practitioner Family; Visit Provider Nurse Practitioner Family
DX: R60.9 Edema, unspecified (principal)
CPT/HCPCS: 36415; 80053; 83880; 84443; 85025

== ENCOUNTER 2024-07-07 08:26 | Outpatient (REF) | payer MEDICARE, SELFPAY ==
--- NOTE | ~2024-07-07 | US_ITS ---
EXAMINATION: US ABDOMEN LIMITED WITH LIVER ELASTOGRAPHY CLINICAL INFORMATION: Elevated liver enzymes COMPARISON: None available. TECHNIQUE: Real-time imaging of the abdominal viscera. Noninvasive ultrasound liver fibrosis assessment is performed using Richa ElastPQ point quantification shear wave elastography (pSWE) with a 5 MHz transducer. Multiple elastography samples are obtained. FINDINGS: PANCREAS: Normal. The visualized pancreatic head and body are normal in appearance. The remainder of the pancreas is obscured from visualization by the overlying bowel gas. LIVER: Anechoic with thin septation cyst in the right lobe of the liver measuring 5.2 x 4.0 x 5.3 cm. There is a smaller anechoic cyst in the right lobe measuring 1 cm.. The liver demonstrates normal size, contour and echogenicity. No focal lesion or intrahepatic biliary duct dilatation. The right lobe measures 13.4 cm in length. The left lobe measures 11.3 cm in length. No suspicious mass Shear wave elastography provides a median stiffness of 1.81 m/s (reference: normal median stiffness is 0.81 - 1.22 m/s). The IQR/median stiffness to assess sampling precision is 0.29 (reference: optimal IQR/median stiffness is under 0.3). GALLBLADDER: Calcified shadowing stone within the gallbladder. No gallbladder distention, wall thickening or pericholecystic edema COMMON BILE DUCT: Normal in caliber measuring 0.3 cm in diameter. RIGHT KIDNEY: Normal. No hydronephrosis. No renal calculi or focal parenchymal lesions. The kidney measures 11.1 cm in maximum dimension. FREE FLUID: None. US/US abdomen klein w elastography IMPRESSION: 1. Increased liver stiffness consistent with compensated advanced chronic liver disease. Liver parenchyma otherwise appears normal except for underlying hepatic cysts 2. Elastography: Liver elastography measurements are consistent with a high risk for clinically significant liver fibrosis (METAVIR Stage F3-F4). 3. Cholelithiasis Electronically signed by: Keven Garcia MD 08/01/2024 03:19 PM [facility]
--- NOTE | ~2024-07-07 | US_ITS ---
EXAMINATION: US LOWER EXTREMITY VENOUS (REFLUX EXAM), BILATERAL CLINICAL INDICATION: Chronic venous insufficiency with lower extremity edema COMPARISON: None. TECHNIQUE: Color flow triplex imaging and compression Doppler was performed to evaluate both the deep and the superficial systems bilaterally. To evaluate the superficial system, the examination was performed in the upright position. Color-flow Doppler ultrasound and compression ultrasound were utilized. In addition, maneuvers were utilized to demonstrate reflux. FINDINGS: 1. DEEP VENOUS ULTRASOUND OF THE RIGHT LOWER EXTREMITY: Common Femoral Vein: Compressible, normal respiratory variation and augmented flow. Femoral Vein: Compressible, normal color flow and augmentation. Popliteal Vein: Compressible, normal augmentation. Deep Reflux: There is no evidence of reflux in the deep system in either the common femoral vein, superficial femoral or the popliteal vein. Max's cyst in the popliteal fossa measuring 3.5 x 4.4 x 1.8 cm Diffuse subcutaneous edema in the calf 2. SUPERFICIAL ULTRASOUND WITH DOPPLER OF RIGHT LOWER EXTREMITY: GREAT SAPHENOUS VEIN: Saphenofemoral Junction: 0.9 cm; Reflux: 0 ms Proximal Thigh: 0.3 cm; Reflux: 0 ms Mid Thigh: 0.2 cm; Reflux: 0 ms Above Knee: 0.2 cm; Reflux: 0 ms At Knee: 0.2 cm; Reflux: 0 ms Below Knee: 0.1 cm; Reflux: 0 ms Mid Calf: 0.1 cm; Reflux: 0 ms Ankle: 0.1 cm; Reflux: 0 ms DUPLICATED MEDIAL GREAT SAPHENOUS VEIN: Diameter: 0.2 cm Reflux: NA DUPLICATED LATERAL GREAT SAPHENOUS VEIN: Diameter: None imaged Reflux: NA SMALL SAPHENOUS VEIN: Saphenopopliteal Junction: 0.2 cm; Reflux: 0 ms Proximal: 0.2 cm; Reflux: 0 ms Distal: 0.2 cm; Reflux: 0 ms VEIN OF GIACOMINI: Size: NA Reflux: NA PERFORATORS: Location: None imaged Size: NA Reflux: NA VARICOSITIES: Location: None imaged Size: NA Reflux: NA 3. DEEP VENOUS ULTRASOUND OF THE LEFT LOWER EXTREMITY: Common Femoral Vein: Compressible, normal respiratory variation and augmented flow. Femoral Vein: Compressible, normal color flow and augmentation. Popliteal Vein: Compressible, normal augmentation. Deep Reflux: There is no evidence of reflux in the deep system in either the common femoral vein, superficial femoral or the popliteal vein. There is no evidence of a Max's cyst. Diffuse subcutaneous edema within the calf 4. SUPERFICIAL ULTRASOUND WITH DOPPLER OF LEFT LOWER EXTREMITY: GREAT SAPHENOUS VEIN: Saphenofemoral Junction: 1.3 cm; Reflux: 0 ms Proximal Thigh: 0.4 cm; Reflux: 0 ms Mid Thigh: 0.4 cm; Reflux: 0 ms Above Knee: 0.3 cm; Reflux: 0 ms At Knee: 0.4 cm; Reflux: 0 ms Below Knee: 0.2 cm; Reflux: 0 ms Mid Calf: 0.1 cm; Reflux: 0 ms Ankle: 0.1 cm; Reflux: 0 ms DUPLICATED MEDIAL GREAT SAPHENOUS VEIN: Diameter: None imaged Reflux: NA DUPLICATED LATERAL GREAT SAPHENOUS VEIN: Diameter: None imaged Reflux: NA SMALL SAPHENOUS VEIN: Saphenopopliteal Junction: 0.2 cm; Reflux: 0 ms Proximal: 0.2 cm; Reflux: 0 ms Distal: 0.2 cm; Reflux: 0 ms VEIN OF GIACOMINI: Size: NA Reflux: NA PERFORATORS: Location: None imaged Size: NA Reflux: NA VARICOSITIES: Location: None Imaged Size: NA Reflux: NA US/US venous duplex LE BI IMPRESSION: 1. Right: No significant venous insufficiency or reflux. Max's cyst in the popliteal fossa. Diffuse subcutaneous edema in the calf. 2. Left: No significant venous insufficiency or reflux. Diffuse subcutaneous edema in the calf. Electronically signed by: Keven Garcia MD 08/01/2024 03:13 PM [facility]
== END 2024-07-07 08:27 | disposition home or self-care (01) ==
LOC: HO.US 08:26
PROVIDERS: PCP Nurse Practitioner Family; Visit Provider Nurse Practitioner Family
DX: R74.8 Abnormal levels of other serum enzymes (principal); R60.0 Localized edema
CPT/HCPCS: 76705; 76981; 93970

== ENCOUNTER 2024-07-12 07:44 | Outpatient (REF) | payer MEDICARE, SELFPAY ==
[2024-07-12 09:20] LABS: B Type Natriuretic Peptide 590 pg/mL (<100)
[2024-07-12 10:09] LABS: MANUAL DIFF FLAG NO
[2024-07-12 10:20] LABS: Appearance Urine Clear; Color Urine Dark Yellow; Glucose Urine UA Negative (Negative); Leukocyte Esterase Urine Small (1+) (Negative); Nitrite Urine Negative (Negative); PH 5.5 (5.0-9.0); UMIC TRIGGER UACC YES; Urine Blood Negative (Negative); Urine Ketones Negative (Negative); Urine Protein Negative (Neg-Trace)
[2024-07-12 10:24] LABS: Bacteria Urine None Seen (None Seen); Hyaline Casts Urine 0-2 /LPF (0-2); RBC Urine 0-2 /HPF (0-2); Squamous Epithelial Cell Urine 0-2 /HPF (0-2); UACC Culture Trigger YES
[2024-07-12 10:30] LABS: Basophils Percent Auto 0.8 % (0-2); Eosinophils Absolute Auto 0.1 X10*3/uL (0.0-0.4); Eosinophils Percent Auto 1.5 % (0-4); Hematocrit 40.8 % (42.0-52.0); Hemoglobin 13.8 g/dl (14.0-18.0); Imm Gran Abs Auto 0.01 X10*3/uL (0.00-0.03); Imm Gran Pct Auto 0.2 % (0.0-0.4); Lymphocytes Absolute Auto 1.5 X10*3/uL (1.2-4.9); Lymphocytes Percent Auto 28.9 % (20-40); Mean Corpuscular HGB Conc 33.8 g/dl (31.0-36.0); Mean Corpuscular Hemoglobin 31.5 pg (27.0-33.0); Mean Corpuscular Volume 93.2 fL (80.0-98.0); Mean Platelet Volume 9.5 fL (9.4-12.4); Monocytes Absolute Auto 0.6 X10*3/uL (0.1-1.2); Monocytes Percent Auto 11.5 % (2-11); Neutrophils Percent Auto 57.1 % (45-73); Platelet Count 241 X10*3/uL (160-400); Red Blood Count 4.38 X10*6/uL (4.60-5.80); Red Cell Distribution Width 14.1 % (11.0-16.0); White Blood Count 5.2 X10*3/uL (4.8-10.8)
[2024-07-12 10:54] LABS: Alanine Aminotransferase 18 U/L (0-40); Albumin Level 3.8 g/dL (3.5-5.0); Alkaline Phosphatase 56 U/L (39-117); Anion Gap 12 (12-20); Aspartate Amino Transferase 34 U/L (5-37); Bilirubin Total 0.8 mg/dL (0.0-1.0); Blood Urea Nitrogen 24 mg/dL (9-16); Carbon Dioxide 24 mmol/L (22-29); Chloride 104 mmol/L (96-108); Cholesterol 136 mg/dL (<200); Estimated Glomerular Filt Rate 46; Glucose Fasting 84 mg/dL (60-99); HDL Cholesterol 41 mg/dL (>40); LDL Cholesterol Calculated 79 mg/dL (<100); Potassium 3.8 mmol/L (3.3-5.1); Sodium 136 mmol/L (135-145); Total Protein 6.9 g/dL (6.5-8.0); Triglycerides 83 mg/dL (<150)
[2024-07-12 11:15] LABS: TSH reflex Free T4 1.71 uIU/mL (0.32-4.0)
== END 2024-07-12 07:45 | disposition home or self-care (01) ==
LOC: HO.HMGCLDS 07:44
PROVIDERS: PCP Nurse Practitioner Family; Visit Provider Nurse Practitioner Family
DX: R60.9 Edema, unspecified (principal); I10 Essential (primary) hypertension
CPT/HCPCS: 36415; 80053; 80061; 81001; 83880; 84443; 85025; 87086

== ENCOUNTER 2024-07-27 08:22 | Day surgery (SDC) | payer MEDICARE, SELFPAY ==
[2024-07-25 09:37] VITALS: BMI 31.3
--- NOTE | 2024-07-26 08:41 | P.CONAN_ITS ---
HPI - Anesthesia Eval Consult details Narrative: 73yo M for Cardioversion Eliquis for afib PMFSH Active Problems Active Problems: All Active Problems Persistent atrial fibrillation (Acute) Shortness of breath (Acute) Early satiety (Acute) New onset a-fib (Acute) Edema (Acute) Elevated ferritin (Chronic) Elevated TSH (Acute) Fatigue (Acute) Long COVID (Acute) Cough (Acute) Elevated serum creatinine (Acute) Elevated liver enzymes (Acute) Facial skin lesion (Acute) Essential hypertension (Acute) Atrial arrhythmia (Acute) Uncontrolled hypertension (Acute) Preoperative cardiovascular examination (Acute) Precordial chest pain (Acute) SVT (supraventricular tachycardia) (Acute) Elevated BP without diagnosis of hypertension (Acute) Abnormal EKG (Acute) Irregular heart rhythm (Acute) Screening for prostate cancer (Acute) Physical exam (Acute) Screening for colon cancer (Acute) Past Medical History Medical History SVT (supraventricular tachycardia) Long COVID Atrial fibrillation HTN (hypertension) Arthritis Family History Family History Father No problems noted. Mother No problems noted. Surgical History Surgical History (Updated 07/27/24 @ 08:49 by Harika Ryan RN) Hx of hand surgery Hx of colonoscopy Hx of right knee surgery Social History Social History Household Members: Spouse Housing: House Patient Tobacco Use Status: Never used Tobacco e-Cigarette/Vaping Use: Never Used service: No Current occupational status: retired Cognitive needs: No Hearing needs: No Vision needs: No Meds Allergies Allergy/AdvReac Type Severity Reaction Status Date / Time No Known Allergies Allergy Verified 07/27/24 08:48 Exam Height,Weight and Vital Signs: Height 5 ft 9 in Weight 96.162 kg Pertinent Lab Results Pertinent Lab Results: Laboratory Tests 07/12/24 07:52 WBC 5.2 Hgb 13.8 L Hct 40.8 L Plt Count 241 Sodium 136 Potassium 3.8 Chloride 104 Carbon Dioxide 24 BUN 24 H Creatinine 1.49 H Narrative Narrative: EKG 07/2024 Details: Today, read by me, atrial fibrillation, T-wave abnormality inferior lateral leads, QTC 477 milliseconds, rate 67 ECHO 05/2024 Conclusions: - The left ventricular systolic function is normal. The calculated ejection fraction is 62% by biplane method. - No obvious valvular pathology seen on this study. Assessment and Plan Assessment Anesthesia Assessment: Chart Reviewed
--- NOTE | 2024-07-27 | ECG_ITS ---
Test Reason : RHYTHM CHANGE Blood Pressure : / mmHG Vent. Rate : 092 BPM Atrial Rate : 000 BPM P-R Int : 000 ms QRS Dur : 088 ms QT Int : 384 ms P-R-T Axes : 000 056 233 degrees QTc Int : 474 ms Sinus rhythm with PACs ST & T wave abnormality, consider inferior ischemia ST & T wave abnormality, consider anterolateral ischemia Prolonged QT Abnormal ECG When compared with ECG of 27-JUL-2024 10:39, No significant changes seen Referred By: Chriss Camarena Electronically Signed By:CHRISS CAMARENA
[2024-07-27 08:49] VITALS: BMI 31.2
[2024-07-27 09:01] VITALS: BP 155/90; PULSE 80; RESP 16; TEMP 36.8; O2SAT 97
[2024-07-27] MEDS: Lactated Ringers 1,000 ML 100 ML IVCONT (09:02)
--- NOTE | 2024-07-27 09:37 | MHC.SHP ---
Pre-Procedural Eval Section A - 24 Hr Update-Section A only Date of Service: 07/27/24 The patient is an INPATIENT: No Section B - Complete if H&P > 30 days Chief Complaint: Other persistent atrial fibrillation Allergies: Allergies Allergy/AdvReac Type Severity Reaction Status Date / Time No Known Allergies Allergy Verified 07/27/24 08:48 Plan I have reviewed the history and physical and performed a pertinent physical examination on my patient. No changes have occurred unless specified. Time Spent With Patient Time: Total time managing care of this patient today ____ minutes.
--- NOTE | 2024-07-27 09:38 | HO.CARDIVERS ---
Cardioversion Procedure Note Cardioversion Date of Procedure: 07/27/2024 Pre-Op Diagnosis: Atrial fibrillation Post-Op Diagnosis: Sinus rhythm Consent: Informed consent obtained. Procedure: After informed consent was obtained, patient was taken to the PACU. The patient was then positioned appropriately. The cardioversion pads were placed in anteroposterior position. Once under anesthesia, 120 joules of synchronized shock was administered. The rhythm converted from atrial fibrillation to sinus rhythm. Patient remained in sinus rhythm after the end of procedure. Complications: None. Impression: Successful cardioversion from atrial fibrillation to sinus rhythm.
--- NOTE | 2024-07-27 10:27 | ECG_ITS ---
Test Reason : post cardioversion Blood Pressure : / mmHG Vent. Rate : 088 BPM Atrial Rate : 088 BPM P-R Int : 182 ms QRS Dur : 088 ms QT Int : 388 ms P-R-T Axes : 080 054 248 degrees QTc Int : 469 ms Normal sinus rhythm with sinus arrhythmia ST & T wave abnormality, consider inferolateral ischemia Abnormal ECG No previous ECGs available Referred By: Chriss Camarena Electronically Signed By:CHRISS CAMARENA
[2024-07-27 10:34] VITALS: BP 135/73; PULSE 89; RESP 22; TEMP 37; O2SAT 93
[2024-07-27] MEDS: Amiodarone HCL 200 MG TABLET 400 MG PO (10:37)
[2024-07-27 10:49] VITALS: BP 140/78; PULSE 89; RESP 18; TEMP 37; O2SAT 97
== END 2024-07-27 11:20 | disposition home or self-care (01) ==
PROVIDERS: PCP Nurse Practitioner Family; Visit Provider Internal Medicine
PROC: 5A2204Z Restoration of Cardiac Rhythm, Single (ICD-10-PCS; principal; 2024-07-27 10:00)
DX: I48.19 Other persistent atrial fibrillation (principal); Z79.01 Long term (current) use of anticoagulants; I10 Essential (primary) hypertension; Z79.899 Other long term (current) drug therapy
CPT/HCPCS: 92960; 93005; J2704

== ENCOUNTER → 2024-07-27 08:22 | Outpatient (BNV) | payer MEDICARE, SELFPAY | PROVIDERS: PCP Nurse Practitioner Family; Visit Provider Internal Medicine | DX: I48.91 Unspecified atrial fibrillation (principal) | CPT/HCPCS: 92960 ==

== ENCOUNTER → 2024-07-27 10:27 | Outpatient (BNV) | payer MEDICARE, SELFPAY | PROVIDERS: PCP Nurse Practitioner Family; Visit Provider Internal Medicine | DX: R94.31 Abnormal electrocardiogram [ECG] [EKG] (principal); I48.19 Other persistent atrial fibrillation; I49.1 Atrial premature depolarization | CPT/HCPCS: 93010 ==

== ENCOUNTER 2024-08-09 12:56 | Outpatient (AMB) | payer MEDICARE, SELFPAY ==
--- NOTE | 2024-08-09 13:10 | AM.OFFVISNUR ---
Intake Visit Reasons: EKG Allergies No Known Allergies Allergy (Verified 07/27/24 08:48) Nursing Note pt is here for nurse visit with ekg pt is on amiodarone 400 mg PO BID pt has no complaints ekg reviewed by Dr CERVANTES Office Procedures EKG [id number], Complete
== END 2024-08-09 13:20 | disposition home or self-care (01) ==
PROVIDERS: PCP Nurse Practitioner Family; Visit Provider Internal Medicine
DX: R00.1 Bradycardia, unspecified (principal); I44.0 Atrioventricular block, first degree; R94.31 Abnormal electrocardiogram [ECG] [EKG]
CPT/HCPCS: 93010

== ENCOUNTER → 2024-08-09 12:56 | Outpatient (BNVA) | payer MEDICARE, SELFPAY | PROVIDERS: PCP Nurse Practitioner Family; Visit Provider Internal Medicine | DX: R94.31 Abnormal electrocardiogram [ECG] [EKG] (principal); R00.1 Bradycardia, unspecified; I44.0 Atrioventricular block, first degree | CPT/HCPCS: 93005 ==

== ENCOUNTER 2024-09-21 11:00 | Outpatient (REF) | payer MEDICARE, SELFPAY ==
--- NOTE | ~2024-09-21 | XR_ITS ---
CLINICAL HISTORY: M17.11 - Unilateral primary osteoarthritis, right knee Exam: Lateral and sunrise views of the right knee. Comparison: Left knee radiographs from same day. Findings: Genu valgum is identified due to severe lateral compartment narrowing. Moderate degenerative changes of the medial compartment and patellofemoral joint. Small joint effusion. No fracture. Impression: Moderate to severe DJD, most pronounced within the lateral compartment. This document has been electronically signed by: Ceferino Stroud MD on 09/23/2024 09:29:20
--- NOTE | ~2024-09-21 | XR_ITS ---
CLINICAL HISTORY: M25.562 - Pain in left knee Exam: AP, lateral, and sunrise views of the left knee. Comparison: Accompanying right knee radiographs from same day. Findings: Overall bony alignment is anatomic. No acute fracture. Moderate tricompartmental osteoarthritis with joint space narrowing and osteophyte formation. Chondrocalcinosis is seen within the lateral compartment. No joint effusion. Impression: Chondrocalcinosis with moderate DJD. This document has been electronically signed by: Ceferino Stroud MD on 09/23/2024 09:26:39
== END 2024-09-21 11:01 | disposition home or self-care (01) ==
LOC: HO.HOSX 11:00
PROVIDERS: Visit Provider Physician Assistant
DX: M17.0 Bilateral primary osteoarthritis of knee (principal)
CPT/HCPCS: 73562; 99202

== ENCOUNTER 2024-09-21 13:43 | Outpatient (AMB) | payer MEDICARE, SELFPAY ==
[2024-09-21 13:48] VITALS: BMI 31.2
--- NOTE | 2024-09-21 13:48 | MHC.OFFVIS ---
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 Patient reports ongoing swelling and stiffness for years however due to a recent fall his symptoms have gotten worse. His right knee causes the most discomfort. He has a recent US which showed a herrera cyst behind his right knee. No at home therapy. Allergies No Known Allergies Allergy (Verified 09/21/24 14:00) Medication List - Last Reconciled 09/21/24 by Guy Gonzales PA-C amiodarone 400 mg (2 x 200 mg) PO BID amlodipine 5 mg PO DAILY apixaban (Eliquis) 5 mg PO BID diclofenac sodium 1% 4 grams topical QID 30 days hydrochlorothiazide 25 mg PO DAILY levothyroxine 75 mcg PO DAILY lisinopril 30 mg PO DAILY 90 days metoprolol tartrate 25 mg orally 2 tablets in the a.m. 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 He has a h/o right knee surgery around 16yo, due to patella instability. He has difficulty with walking long distances getting up from a seated position and standing for long periods of time. He feels the decreased function is greatly affecting his ADl's. He is quite active but the knee has made him more sedentary. [facility] Medical History (Updated 09/21/24 @ 14:32 by uGy Gonzales PA-C) SVT (supraventricular tachycardia) Long COVID Atrial fibrillation HTN (hypertension) Arthritis Surgical History (Updated 07/27/24 @ 08:49 by Harika Ryan RN) Hx of hand surgery Hx of colonoscopy Hx of right knee surgery Family History Father No problems noted. Mother No problems noted. Social History Household Members: Spouse Housing: House Patient Tobacco Use Status: Never used Tobacco e-Cigarette/Vaping Use: Never Used service: No Current occupational status: retired Cognitive needs: No Hearing needs: No Vision needs: No Review of Systems Const All systems reviewed & are unremarkable except as noted in HPI and below Physical Exam Vital Signs: BMI result Body Mass Index 31.2 Const General: cooperative and no acute distress Orientation/consciousness: patient oriented x3 Resp Effort & Inspection: normal respiratory effort and able to speak in complete sentences Cardio Peripheral pulses: Peripheral pulses 2+ throughout Neuro General: patient oriented x3 Extrem Other: Bialat knee skin intact, no erythema or joint effusion. Mild Tenderness along the medial joint line of the right knee. ROM full with crepitus. Negative steinmans. No ligamentous laxity. NVI. Results Reviewed Results Reviewed: Xrays were obtained in the office today and personally reviewed by me of marcelino knee show moderate OA Assessment & Plan Assessment & Plan (1) Osteoarthritis of knees, bilateral: Code(s): M17.0 - Bilateral primary osteoarthritis of knee Category: Medical Plan: We had a lengthy discussion about the extent of his OA and options available which include surgical intervention. He is interested in pursuing Total knee arthroplasty to improve his functional capacity and daily activities. I explained to him the procedure in detail, the hospital stay and details about post op rehab and precautions. He does understand all this and would like to move forward. I did put him in contact with our Nurse Navigator, Brittany who will set him up with pre op planning and book accordingly. All questions were answered. Orders: Orders XR knee LT 3V Today M25.562 - Pain in left knee XR knee RT 3V Today M17.11 - Unilateral primary osteoarthritis, right knee Medications: New diclofenac sodium 1% apply 4grams to affected area four times a day as needed 4 grams topical QID 100 grams 6RF 30 days Coding Level of Care Code New Pt Level 4 (28440) Complex EM visit Add On G2211 Diagnoses Osteoarthritis of knees, bilateral M17.0
== END 2024-09-21 14:30 | disposition home or self-care (01) ==
PROVIDERS: PCP Nurse Practitioner Family; Visit Provider Physician Assistant
DX: M17.0 Bilateral primary osteoarthritis of knee (principal)
CPT/HCPCS: 99204; G2211

== ENCOUNTER 2024-09-22 13:50 | Outpatient (AMB) | payer MEDICARE, SELFPAY ==
--- NOTE | 2024-09-22 14:04 | MHC.OFFVIS ---
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 Mail Deliverer Required: No Allergies No Known Allergies Allergy (Verified 09/22/24 14:07) Medication List - Last Reconciled 09/22/24 by Loiuse Brizuela, TAXATION ECONOMIST-C amiodarone 200 mg PO DAILY amlodipine 5 mg PO DAILY apixaban (Eliquis) 5 mg PO BID diclofenac sodium 1% 4 grams topical QID 30 days hydrochlorothiazide 25 mg PO DAILY levothyroxine 75 mcg PO DAILY lisinopril 30 mg PO DAILY 90 days metoprolol tartrate 25 mg PO ONCE HPI HPI * 2 mth f/up cvr: Details: Vipul is a 73-year-old male with past medical history of hypertension, frequent PACs who recently had nuclear stress test at which time he was found to have new onset atrial fibrillation. He was started on anticoagulation, Holter monitor completed showing persistent AFib. After 1 month's time he underwent a cardioversion with Dr. Chand and was started on amiodarone. He now presents for follow-up. Today he reports that he has not been feeling well since his cardioversion. He has not notice any heart palpitations. No shortness of breath,PND, orthopnea. His leg edema has improved further. He does have bilateral knee pain and tells me he saw the orthopedic doctor and is in need bilateral knee replacements. He is not having any chest discomfort at rest or with activity. No lightheadedness, presyncope, syncope, falls. No bleeding issues reported. The cost of Eliquis is still a problem for him. is present. [facility] Medical History (Updated 09/22/24 @ 16:36 by Louise Brizuela, FANG-C) History of cardioversion SVT (supraventricular tachycardia) Long COVID Atrial fibrillation HTN (hypertension) Arthritis Surgical History Hx of hand surgery Hx of colonoscopy Hx of right knee surgery Family History Father No problems noted. Mother No problems noted. Social History Household Members: Spouse Housing: House Patient Tobacco Use Status: Never used Tobacco e-Cigarette/Vaping Use: Never Used service: No Current occupational status: retired Cognitive needs: No Hearing needs: No Vision needs: No Review of Systems Const All systems reviewed & are unremarkable except as noted in HPI and below ENT Denies dizziness Card Denies chest pain, Denies chest pain at rest, Denies chest pain with activity, Denies rapid heart rate, Denies pedal edema, Denies edema, Denies leg edema, Denies lightheadedness, Denies palpitations, Denies dyspnea, Denies dyspnea on exertion and Denies orthopnea Resp Denies cough, Denies dyspnea and Denies dyspnea on exertion GI Denies hematochezia and Denies change in stool character Musc Details: bilateral knee pain from arthritis Reports limited range of motion, Reports muscle cramps, Denies muscle weakness, Denies numbness, Denies radiating pain into limb, Denies stiffness and Denies tingling Neuro Denies dizziness, Denies numbness and Denies tingling Endo Denies palpitations Physical Exam Vital Signs: Last Vital Signs Pulse 58 09/22/24 14:05 BP 120/62 09/22/24 14:05 BMI result Body Mass Index 31.3 Const General: cooperative, healthy appearing, comfortable and no acute distress Orientation/consciousness: patient oriented x3 Neck Neck: Yes normal visual inspection and Yes no JVD Resp Effort & Inspection: normal respiratory effort Auscultation: clear to auscultation bilaterally, no rales, no rhonchi and no wheezes Cardio Rate: regular rate Rhythm: regular rhythm Heart sounds: S1 normal heart sound present, S2 normal heart sound present, no murmurs and no rubs Neuro General: patient oriented x3 Extrem General: Yes normal to inspection and No no pedal edema Psych Appearance: grossly normal Mental Status: mental status grossly normal Speech and movement: Normal speech and movement present Office Procedures EKG Details: Today, read by me, Sinus bradycardia, 1st degree avb, T wave abn inferior, anterolateral leads, Less pronounced T wave inversions compared to last EKG, rate 58, Qtc 457ms [id number], Complete Assessment & Plan Assessment & Plan (1) New onset a-fib: Code(s): I48.91 - Unspecified atrial fibrillation Category: Medical Plan: History of frequent PACs. A Holter monitor done 01/11/24 shows sinus rhythm with PACs 20.94% of the time, rare PVCs, longest SVE run 14 beats. He underwent a nuclear stress test on 06/10/2024 which showed normal myocardial perfusion imaging. At the time of the stress test he was identified to have a new finding of atrial fibrillation. He was started on Eliquis for anticoagulation and continued on metoprolol. Holter monitor applied on 06/10/2024 for 1 day 18 hours showed atrial fibrillation with average heart rate 56, rare ventricular ectopy. On follow-up visit he reported shortness of breath with physical activity. Echocardiogram was done on 05/25/2024 showing EF 62%, no valve abnormalities, moderate biatrial enlargement. He underwent cardioversion with Dr. Chand on 07/27/2024, successfully converting to sinus rhythm. He was then started on amiodarone load followed by maintenance dose. Today he reports he has been doing well since that time. He has not noticed any atrial fibrillation. He does use a 3TIER mobile device and checks his rhythm daily. EKG done today showing atrial fibrillation with T-wave abnormality in the inferior, anterior lateralleads, rate 58, no significant change from prior. Will have him continue metoprolol XL 25 mg daily. Continue amiodarone 200 mg daily. He is not able to continue to afford Eliquis. Will have him start on warfarin 4 mg daily with an INR check in 3 days. Plan to transition him off of Eliquis. Will refer him to the anticoagulation clinic. He is agreeable to this plan. Going forward he will benefit from atrial fibrillation ablation. At this time he tells me he wants to proceed with bilateral knee replacements. Since his anticoagulation will be held for the procedures will hold off on ablation at this time. Cardiology follow-up in 3-4 months, sooner if needed. (2) Essential hypertension: Code(s): I10 - Essential (primary) hypertension Category: Medical Plan: History of hypertension. Blood pressure currently normal range. Continue amlodipine, Lasix, lisinopril without change. (3) Atrial arrhythmia: Code(s): I49.8 - Other specified cardiac arrhythmias Category: Medical Plan: History of very frequent PACs. He had been on metoprolol to help suppress. He now is in atrial fibrillation as above. (4) Edema: Code(s): R60.9 - Edema, unspecified Category: Medical Plan: As above. Worse on higher dose amlodipine. (5) On amiodarone therapy: Code(s): Z79.899 - Other shelter (current) drug therapy Category: Medical Plan: New to amiodarone starting 07/27/2024. Will check labs including liver panel, TSH to assess amiodarone tolerance. Plan Time spent on chart review, documentation, interview and assessment Orders: Orders Prothrombin Time INR Today I48.91 - Unspecified atrial fibrillation Comprehensive Met. Panel Today I48.91 - Unspecified atrial fibrillation, Z79.899 - Other intermission coordinator (current) drug therapy TSH reflex Free T4 Today Z79.899 - Other shelter (current) drug therapy Referrals Anticoagulation Service/Clinic I48.91 - Unspecified atrial fibrillation Medications: New amiodarone 200 mg PO DAILY 90 tabs 1RF warfarin Take one tablet daily or as directed by provider/ anticoagulation clinic Replaces Eliquis 4 mg PO DAILY 30 tabs 5RF 30 days Changed From metoprolol tartrate 25 mg orally 2 tablets in the a.m. and 1 tablet in the p.m.; Dose adjusted 90 days 270 tabs 1RF To metoprolol tartrate 25 mg PO ONCE Refilled amiodarone 200 mg PO DAILY 90 tabs 1RF Discontinued apixaban (Eliquis) New anticoagulation medication Discontinued Reason: Doctor's Order 5 mg PO BID 60 tabs 5RF AFib Coding Level of Care Code Est Pt Level 4 (88842) Complex EM visit Add On G2211 Diagnoses New onset a-fib I48.91 Essential hypertension I10 Atrial arrhythmia I49.8 Edema R60.9 On amiodarone therapy Z79.899 CPT Codes EKG - CPT: 72035-[id number], Complete ([id number])
[2024-09-22 14:05] VITALS: BP 120/62; PULSE 58; BMI 31.3
== END 2024-09-22 14:45 | disposition home or self-care (01) ==
PROVIDERS: PCP Nurse Practitioner Family; Visit Provider Nurse Practitioner Family
DX: I48.91 Unspecified atrial fibrillation (principal); I10 Essential (primary) hypertension; I49.8 Other specified cardiac arrhythmias; R60.9 Edema, unspecified; Z79.899 Other long term (current) drug therapy
CPT/HCPCS: 93010; 99214; G2211

== ENCOUNTER → 2024-09-22 13:50 | Outpatient (BNVA) | payer MEDICARE, SELFPAY | PROVIDERS: PCP Nurse Practitioner Family; Visit Provider Nurse Practitioner Family | DX: I10 Essential (primary) hypertension (principal); I48.91 Unspecified atrial fibrillation; I49.8 Other specified cardiac arrhythmias; R60.9 Edema, unspecified; Z79.01 Long term (current) use of anticoagulants; Z79.899 Other long term (current) drug therapy | CPT/HCPCS: 93005; 99212 ==

== ENCOUNTER 2024-09-26 14:19 | Outpatient (REF) | payer MEDICARE, SELFPAY ==
[2024-09-26 16:38] LABS: INTERNATIONAL NORM RATIO 3.3 (0.9-1.1); Prothrombin Time 38.1 SEC (10.9-12.4)
[2024-09-26 16:56] LABS: Alanine Aminotransferase 182 U/L (0-40); Albumin Level 4.2 g/dL (3.5-5.0); Alkaline Phosphatase 73 U/L (39-117); Anion Gap 12 (12-20); Aspartate Amino Transferase 221 U/L (5-37); Bilirubin Total 0.6 mg/dL (0.0-1.0); Blood Urea Nitrogen 23 mg/dL (9-16); Calcium 9.6 mg/dL (8.4-10.2); Carbon Dioxide 26 mmol/L (22-29); Chloride 101 mmol/L (96-108); Estimated Glomerular Filt Rate 47; Glucose Random 105 mg/dL (60-115); Potassium 4.6 mmol/L (3.3-5.1); Sodium 134 mmol/L (135-145); Total Protein 7.7 g/dL (6.5-8.0)
[2024-09-26 17:05] LABS: TSH reflex Free T4 6.89 uIU/mL (0.32-4.0)
[2024-09-26 17:59] LABS: Free T4 (Free Thyroxine) 1.24 ng/dL (0.71-1.85)
== END 2024-09-26 14:20 | disposition home or self-care (01) ==
LOC: HO.HMGCLDS 14:19
PROVIDERS: Nurse Practitioner Family; PCP Nurse Practitioner Family; Visit Provider Nurse Practitioner Family
DX: I48.91 Unspecified atrial fibrillation (principal); Z79.899 Other long term (current) drug therapy
CPT/HCPCS: 36415; 80053; 84439; 84443; 85610

== ENCOUNTER 2024-09-30 13:02 | Outpatient (AMB) | payer MEDICARE, SELFPAY ==
[2024-09-30 13:23] LABS: Prothrombin Time Whole Bld POC 33.5 sec (11.1-13.5); ~PT, ~INR - Anti Coag Clinic 2.8 (0.9-1.1)
--- NOTE | 2024-09-30 14:00 | MHC.OFFVISCO ---
Intake Intake Visit Reasons: Anticoagulation Ibm Bpm Architect Required: No Allergies No Known Allergies Allergy (Verified 09/30/24 13:06) Medication List - Last Reconciled 09/30/24 by Pat Lee RN amlodipine 5 mg PO DAILY diclofenac sodium 1% 4 grams topical QID 30 days hydrochlorothiazide 25 mg PO DAILY levothyroxine 75 mcg PO DAILY lisinopril 30 mg PO DAILY 90 days metoprolol tartrate 25 mg PO ONCE metoprolol tartrate 50 mg PO BID warfarin 4 mg PO DAILY 30 days Nursing Note New pt transitioning from eliquis to warfarin- stopped Eliquis 09/27/24 Had been on amiodarone -d/cd per MD 09/27/24 Had 3 days of 4mg while on Eliquis INR 3.3 warfarin dose decreased to 2mg thu Teaching completed with pt and and education folder given for review at home INR: 2.8 in therapeutic range Medications and supplements reviewed No changes in health, diet, medications, or supplements, Denies any signs and symptoms of bleeding or bruising or clotting. Bleeding, bruising, clotting discussed Nutritional guidance given Dose: keep same dose for now as Eliquis and amiodorone leave his system and his labs return to normal F/U INR: 3 days 10/03/24 Patient and verbalizes understanding of instructions given with read back and dates on dosing form Anti-Coag Initial Assessment Social Hx Patient Tobacco Use Status: Never used Tobacco alcohol intake: current (Few / week/ vodka or beer ) Alcohol intake frequency: a few times a week Housing: House Housing Other:: lives with current occupation: retired current occupational exposures/hazards: No Fall risk assessment: 1 Fall in past year (r/t arthritic knees give out or become stiff ) Cardiovascular Hx: HTN and Arrhythmias (asymptomatic ) Endocrine Hx: Thyroid Disease (hypothyroid before amiodorone - need to monitor ) Musculoskeletal Hx: Arthritis Cancer HX: No (father lung cancer ) Psych. Illness/Depression: No Anti-Coag. Education Record Teaching Recipient: Family Barriers to Learning Identified: Emotional (new dx new med ) Emotional: None and Ethinic/Cultural Beliefs/Practices ([employer]ova Witness - ? if can receive blood products is bleeds) Significant other who can be involved in Teaching Process when Indicated: Ibm Bpm Architect Required: No Readiness To Learn: Excellent Teaching Methods: Discussion, Handout and Teach Back Response to Teaching: Verbalize Understanding Education Intervention/Brief Description of Teaching 1. Able to state reason for taking Warfarin: Yes 2. Able to state Pain Management techniques: Yes 3. Able to state action of Warfarin.: Yes Able to state current dose, pill color, how and when Warfarin to be taken: Yes Able to identify signs of bleeding &/or clotting: Yes 4. Able to identify need to keep diet consistent in regard to vitamin K intake: Yes Able to state restriction on alcohol: Yes 5. Able to state need for compliance with PT/INR testing: Yes Describes rationale for carrying ID and wearing Medic Alert bracelet: Yes Patient instructed to monitor for excess bruising or signs/symptoms of clotting or bleeding: Yes 6. Able to state that there are drugs that interact with Warfin: Yes 7. Able to state the need to seek medical attention when illness/injury occur.: Yes Describes the need to avoid activities with high risk of injury: Yes 8. Able to state duration of treatment: Yes (unsure at this time - may have an ablation to stop Afib ) 9. Demonstrates understanding of notifying all providers of pending dental surgical, or other invasive procedures: Yes 10. Able to state Home Care instructions Questionnaires HAS-BLED Does the patient had uncontrolled Hypertension?: No Does the patient have renal disease?: No Does the patient have liver disease?: No (elevated enzymes / if r/t to medication ) Does the patient have a history of stroke?: No Has the patient had major bleeding or predisposition to bleeding?: Yes (falls) Does the patient have labile INRs?: Yes Is the patient over 65 years of age?: Yes Is the patient on medications that gives them a predisposition to bleeding?: Yes Does the patient use alcohol?: Yes HAS-BLED Score: 5 CHADSVASC Age: 75 or over Gender: Male Does the patient have a history of CHF?: No Does the patient have a history of Hypertension?: Yes Does the patient have a history of Stroke/TIA/Thromboembolism?: No Does the patient have a history of Vascular Disease (prior AL, PAD or aortic plaque)?: No Does the patient have a history of Diabetes?: No CHADS VACS Score: 3 Francisco Prediction Score Rsk VTE Active Cancer: No Previous VTE, excluding superficial vein thrombosis: No Reduced mobility: Yes Already known Thrombophilic Condition: No With-in last month Trauma and/or Surgery: No Elderly 70 year or older: Yes Heart and/or Respiratory Failure: No Acute Myocardial infarction and/or Ischemic Stroke: No Acute Infection and/or Rheumatologic Disorder: No Obesity (BMI 30 or greater): No Ongoing Hormonal Treatment: No Score: 4 Francisco Score less than 4; Low Risk of VTE Francisco Score 4 or greater; High Risk of VTE Coding Level of Care Code New Patient Level 2 Diagnoses Current use of anticoagulant therapy Z79.01 Assessment & Plan Assessment & Plan (1) Current use of anticoagulant therapy: Code(s): 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
== END 2024-09-30 16:40 | disposition home or self-care (01) ==
LOC: HO.ACS 13:02
PROVIDERS: PCP Nurse Practitioner Family; Visit Provider Internal Medicine
DX: Z79.01 Long term (current) use of anticoagulants (principal)

== ENCOUNTER 2024-10-03 13:03 | Outpatient (AMB) | payer MEDICARE, SELFPAY ==
--- NOTE | 2024-10-03 13:46 | MHC.OFFVISCO ---
Intake Intake Visit Reasons: Anticoagulation Allergies No Known Allergies Allergy (Verified 09/30/24 13:06) Medication List - Last Reconciled 10/03/24 by Pat Lee RN amlodipine 5 mg PO DAILY diclofenac sodium 1% 4 grams topical QID 30 days hydrochlorothiazide 25 mg PO DAILY levothyroxine 75 mcg PO DAILY lisinopril 30 mg PO DAILY 90 days metoprolol tartrate 25 mg PO ONCE metoprolol tartrate 50 mg PO BID warfarin 4 mg See Protocol PO DAILY 30 days Nursing Note INR: 2.4 in therapeutic range Medications and supplements reviewed No changes in health, diet, medications, or supplements, Denies any signs and symptoms of bleeding or bruising or clotting. Bleeding, bruising, clotting discussed Nutritional guidance given Dose: 4MG X 1 DAY/ 2MG X 6 DAYS F/U INR: 10/06/24 Patient verbalizes understanding of instructions given with read back Anti-Coag Initial Assessment Social Hx Patient Tobacco Use Status: Never used Tobacco alcohol intake: current (Few / week/ vodka or beer ) Alcohol intake frequency: a few times a week Cardiovascular Hx: HTN and Arrhythmias (asymptomatic ) Endocrine Hx: Thyroid Disease (hypothyroid before amiodorone - need to monitor ) Musculoskeletal Hx: Arthritis Cancer HX: No (father lung cancer ) Psych. Illness/Depression: No Coding Level of Care Code Est Patient Level 1 Diagnoses Current use of anticoagulant therapy Z79.01 Results AMB INR Fingerstick AMB INR Fingerstick 2.4 Last Edit by Pat Lee RN on 10/03/24 13:37 manual entry Assessment & Plan Assessment & Plan (1) Current use of anticoagulant therapy: Code(s): Z79.01 - retirement (current) use of anticoagulants Category: Medical
[2024-10-03 14:57] LABS: Prothrombin Time Whole Bld POC 29.3 sec (11.1-13.5); ~PT, ~INR - Anti Coag Clinic 2.4 (0.9-1.1)
== END 2024-10-03 13:49 | disposition home or self-care (01) ==
LOC: HO.ACS 13:03
PROVIDERS: PCP Nurse Practitioner Family; Visit Provider Internal Medicine
DX: Z79.01 Long term (current) use of anticoagulants (principal)

== ENCOUNTER → 2024-10-03 13:03 | Outpatient (BNVA) | payer MEDICARE, SELFPAY | PROVIDERS: PCP Nurse Practitioner Family; Visit Provider Internal Medicine | DX: I48.91 Unspecified atrial fibrillation (principal); Z79.01 Long term (current) use of anticoagulants; Z51.81 Encounter for therapeutic drug level monitoring | CPT/HCPCS: 85610; 99211 ==

== ENCOUNTER → 2024-10-06 13:10 | Outpatient (BNVA) | payer MEDICARE, SELFPAY | PROVIDERS: PCP Nurse Practitioner Family; Visit Provider Internal Medicine | DX: I48.91 Unspecified atrial fibrillation (principal); Z79.01 Long term (current) use of anticoagulants; Z51.81 Encounter for therapeutic drug level monitoring | CPT/HCPCS: 85610; 99211 ==

== ENCOUNTER 2024-10-11 13:11 | Outpatient (AMB) | payer MEDICARE, SELFPAY ==
[2024-10-11 13:20] LABS: Prothrombin Time Whole Bld POC 21.9 sec (11.1-13.5); ~PT, ~INR - Anti Coag Clinic 1.8 (0.9-1.1)
--- NOTE | 2024-10-11 13:32 | MHC.OFFVISCO ---
Intake Vital Signs 10/11/24 13:37 BP 124/64 Blood Pressure Location Lt brachial Position Sitting Respiration 18 Pulse 60 Pulse Source Auscultation Comment Apical pulse regular Intake Visit Reasons: Anticoagulation Allergies No Known Allergies Allergy (Verified 10/11/24 13:13) Medication List - Last Reconciled 10/11/24 by Dana Sylvester, RN amlodipine 5 mg PO DAILY diclofenac sodium 1% 4 grams topical QID 30 days hydrochlorothiazide 25 mg PO DAILY levothyroxine 75 mcg PO DAILY lisinopril 30 mg PO DAILY 90 days metoprolol tartrate 50 mg PO BID warfarin 4 mg See Protocol PO DAILY 30 days Nursing Note Amb to ACS feeling well Medications and supplements reviewed No changes in health, diet, medications, or supplements, Denies any signs and symptoms of bleeding, bruising, clotting. Bleeding, bruising, clotting discussed INR: 1.8 below therapeutic range Dose: increase dose today to 6mg then resume usual dosing tomorrow eat a balanced diet but avoid greens today and tomorrow F/U INR: 1 week pt sts he will be seeing his card brusher for a consultation for possible ablation. Sts also he has appointment with ortho regarding possible bilat knee replacements Patient verbalizes understanding of instructions given Anti-Coag Initial Assessment Social Hx Patient Tobacco Use Status: Never used Tobacco alcohol intake: current (Few / week/ vodka or beer ) Alcohol intake frequency: a few times a week Cardiovascular Hx: HTN and Arrhythmias (asymptomatic ) Endocrine Hx: Thyroid Disease (hypothyroid before amiodorone - need to monitor ) Musculoskeletal Hx: Arthritis Cancer HX: No (father lung cancer ) Psych. 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
[2024-10-11 13:37] VITALS: BP 124/64; PULSE 60; RESP 18
--- NOTE | 2024-11-10 15:11 | MHC.OFFVISCO ---
Intake Vital Signs 10/11/24 13:37 BP 124/64 Blood Pressure Location Lt brachial Position Sitting Respiration 18 Pulse 60 Pulse Source Auscultation Comment Apical pulse regular Intake Visit Reasons: Anticoagulation Allergies No Known Allergies Allergy (Verified 10/25/24 13:24) Medication List - Last Reconciled 10/11/24 by Dana Sylvester, RN amlodipine 5 mg PO DAILY diclofenac sodium 1% 4 grams topical QID 30 days hydrochlorothiazide 25 mg PO DAILY levothyroxine 75 mcg PO DAILY lisinopril 30 mg PO DAILY 90 days metoprolol tartrate 50 mg PO BID warfarin 4 mg See Protocol PO DAILY 30 days Nursing Note on 10/11/24 pt seen by nurse Monica Sylvester re-entered by Pat Lee RN in order code charge for that visit this is her note copied Amb to ACS feeling well Medications and supplements reviewed No changes in health, diet, medications, or supplements, Denies any signs and symptoms of bleeding, bruising, clotting. Bleeding, bruising, clotting discussed INR: 1.8 below therapeutic range Dose: increase dose today to 6mg then resume usual dosing tomorrow eat a balanced diet but avoid greens today and tomorrow F/U INR: 1 week pt sts he will be seeing his application penetration tester for a consultation for possible ablation. Sts also he has appointment with ortho regarding possible bilat knee replacements Patient verbalizes understanding of instructions given Anti-Coag Initial Assessment Social Hx Patient Tobacco Use Status: Never used Tobacco alcohol intake: current (Few / week/ vodka or beer ) Alcohol intake frequency: a few times a week Cardiovascular Hx: HTN and Arrhythmias (asymptomatic ) Endocrine Hx: Thyroid Disease (hypothyroid before amiodorone - need to monitor ) Musculoskeletal Hx: Arthritis Cancer HX: No (father lung cancer ) Psych. Illness/Depression: No Coding Level of Care Code Est Patient Level 1 Diagnoses Current use of anticoagulant therapy Z79.01 Assessment & Plan Assessment & Plan (1) Current use of anticoagulant therapy: Code(s): Z79.01 - [facility] (current) use of anticoagulants Category: Medical
== END 2024-10-11 13:43 | disposition home or self-care (01) ==
LOC: HO.ACS 13:11
PROVIDERS: PCP Nurse Practitioner Family; Visit Provider Internal Medicine
DX: Z79.01 Long term (current) use of anticoagulants (principal)

== ENCOUNTER → 2024-10-11 13:11 | Outpatient (BNVA) | payer MEDICARE, SELFPAY | PROVIDERS: PCP Nurse Practitioner Family; Visit Provider Internal Medicine | DX: I48.91 Unspecified atrial fibrillation (principal) | CPT/HCPCS: 85610; 99211 ==

== ENCOUNTER 2024-10-18 13:32 | Outpatient (AMB) | payer MEDICARE, SELFPAY ==
[2024-10-18 13:40] LABS: Prothrombin Time Whole Bld POC 20.6 sec (11.1-13.5); ~PT, ~INR - Anti Coag Clinic 1.7 (0.9-1.1)
--- NOTE | 2024-10-18 13:47 | MHC.OFFVISCO ---
Intake Intake Visit Reasons: Anticoagulation Allergies No Known Allergies Allergy (Verified 10/18/24 13:36) Medication List - Last Reconciled 10/18/24 by Dana Martinez RN amlodipine 5 mg PO DAILY diclofenac sodium 1% 4 grams topical QID 30 days hydrochlorothiazide 25 mg PO DAILY levothyroxine 75 mcg PO DAILY lisinopril 30 mg PO DAILY 90 days metoprolol tartrate 50 mg PO BID warfarin 4 mg See Protocol PO DAILY 30 days Nursing Note INR: 1.7?out of therapeutic range of 2-3 Medications and supplements reviewed Patient status: well Medications or supplements: no changes Diet: usual diet for pt. States he doesn't eat much greens. Denies any signs and symptoms of bleeding or clotting or unusual bruising Bleeding, bruising, clotting discussed Nutritional guidance given: food list reviewed and pt will focus on foods that raise the INR Dose: increase today's dose to 4mg (2mg) then 2mg X 5 days and 4mg X 2 days on Thu & F/U INR Date : 1 week? Patient verbalizing understanding of instructions with read back given. Anti-Coag Initial Assessment Social Hx Patient Tobacco Use Status: Never used Tobacco alcohol intake: current (Few / week/ vodka or beer ) Alcohol intake frequency: a few times a week Cardiovascular Hx: HTN and Arrhythmias (asymptomatic ) Endocrine Hx: Thyroid Disease (hypothyroid before amiodorone - need to monitor ) Musculoskeletal Hx: Arthritis Cancer HX: No (father lung cancer ) Psych. 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
== END 2024-10-18 13:55 | disposition home or self-care (01) ==
LOC: HO.ACS 13:32
PROVIDERS: PCP Nurse Practitioner Family; Visit Provider Internal Medicine
DX: Z79.01 Long term (current) use of anticoagulants (principal)

== ENCOUNTER → 2024-10-18 13:32 | Outpatient (BNVA) | payer MEDICARE, SELFPAY | PROVIDERS: PCP Nurse Practitioner Family; Visit Provider Internal Medicine | DX: I48.91 Unspecified atrial fibrillation (principal); Z79.01 Long term (current) use of anticoagulants; Z51.81 Encounter for therapeutic drug level monitoring | CPT/HCPCS: 85610; 99211 ==

== ENCOUNTER 2024-10-25 13:21 | Outpatient (AMB) | payer MEDICARE, SELFPAY ==
[2024-10-25 13:30] LABS: Prothrombin Time Whole Bld POC 48.9 sec (11.1-13.5); ~PT, ~INR - Anti Coag Clinic 4.1 (0.9-1.1)
--- NOTE | 2024-10-25 13:39 | MHC.OFFVISCO ---
Intake Intake Visit Reasons: Anticoagulation Allergies No Known Allergies Allergy (Verified 10/25/24 13:24) Medication List - Last Reconciled 10/25/24 by Pat Lee RN amlodipine 5 mg PO DAILY diclofenac sodium 1% 4 grams topical QID 30 days hydrochlorothiazide 25 mg PO DAILY levothyroxine 75 mcg PO DAILY lisinopril 30 mg PO DAILY 90 days metoprolol tartrate 50 mg PO BID warfarin 4 mg See Protocol PO DAILY 30 days Nursing Note INR 4.1 out of therapeutic range 2.0-3.0 Medications and supplements reviewed Patient status: was having cranberry juice because his INR was low - now too high Medications or supplements: states no changes Diet: good - does not eat may fruits and vegetables Denies any signs and symptoms of bleeding or clotting or unusual bruising Bleeding, bruising, clotting discussed Nutritional guidance given: decrease cranberry juice/products and have some blueberry Dose: already took today's dose/ hold tomorrow then resume 4mg x 2 days/ 2mg x 5 days F/U INR Date : 11/03/24 ?? Patient verbalizing understanding of instructions given. Anti-Coag Initial Assessment Social Hx Patient Tobacco Use Status: Never used Tobacco alcohol intake: current (Few / week/ vodka or beer ) Alcohol intake frequency: a few times a week Cardiovascular Hx: HTN and Arrhythmias (asymptomatic ) Endocrine Hx: Thyroid Disease (hypothyroid before amiodorone - need to monitor ) Musculoskeletal Hx: Arthritis Cancer HX: No (father lung cancer ) Psych. 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
== END 2024-10-25 13:50 | disposition home or self-care (01) ==
LOC: HO.ACS 13:21
PROVIDERS: PCP Nurse Practitioner Family; Visit Provider Internal Medicine
DX: Z79.01 Long term (current) use of anticoagulants (principal)

== ENCOUNTER → 2024-10-25 13:21 | Outpatient (BNVA) | payer MEDICARE, SELFPAY | PROVIDERS: PCP Nurse Practitioner Family; Visit Provider Internal Medicine | DX: I48.91 Unspecified atrial fibrillation (principal); Z79.01 Long term (current) use of anticoagulants; Z51.81 Encounter for therapeutic drug level monitoring | CPT/HCPCS: 85610; 99211 ==

== ENCOUNTER 2024-11-03 13:25 | Outpatient (AMB) | payer MEDICARE, SELFPAY ==
[2024-11-03 13:34] LABS: Prothrombin Time Whole Bld POC 26.8 sec (11.1-13.5); ~PT, ~INR - Anti Coag Clinic 2.2 (0.9-1.1)
--- NOTE | 2024-11-03 13:42 | MHC.OFFVISCO ---
Intake Intake Visit Reasons: Anticoagulation Allergies No Known Allergies Allergy (Verified 10/25/24 13:24) Nursing Note INR: 2.2 in therapeutic range Medications and supplements reviewed No changes in health, diet, medications, or supplements, Denies any signs and symptoms of bleeding or bruising or clotting. Bleeding, bruising, clotting discussed Nutritional guidance given - decrease cranberry products - balance the foods you like to keep INR stable Dose: keep same 4mg x 2 days/ 2mg x 5 days F/U INR: 2 weeks Patient verbalizes understanding of instructions given with read back msg sent to PCP regarding f/u labs Anti-Coag Initial Assessment Social Hx Patient Tobacco Use Status: Never used Tobacco alcohol intake: current (Few / week/ vodka or beer ) Alcohol intake frequency: a few times a week Cardiovascular Hx: HTN and Arrhythmias (asymptomatic ) Endocrine Hx: Thyroid Disease (hypothyroid before amiodorone - need to monitor ) Musculoskeletal Hx: Arthritis Cancer HX: No (father lung cancer ) Psych. Illness/Depression: No Coding Level of Care Code Est Patient Level 1 Diagnoses Current use of anticoagulant therapy Z79.01 Assessment & Plan Assessment & Plan (1) Current use of anticoagulant therapy: Code(s): Z79.01 - alf (current) use of anticoagulants Category: Medical
== END 2024-11-03 13:50 | disposition home or self-care (01) ==
LOC: HO.ACS 13:25
PROVIDERS: PCP Nurse Practitioner Family; Visit Provider Internal Medicine
DX: Z79.01 Long term (current) use of anticoagulants (principal)

== ENCOUNTER → 2024-11-03 13:25 | Outpatient (BNVA) | payer MEDICARE, SELFPAY | PROVIDERS: PCP Nurse Practitioner Family; Visit Provider Internal Medicine | DX: I48.91 Unspecified atrial fibrillation (principal); Z79.01 Long term (current) use of anticoagulants; Z51.81 Encounter for therapeutic drug level monitoring | CPT/HCPCS: 85610; 99211 ==

== ENCOUNTER 2024-11-17 13:23 | Outpatient (AMB) | payer MEDICARE, SELFPAY ==
[2024-11-17 13:29] LABS: ~PT, ~INR - Anti Coag Clinic 1.5 (0.9-1.1)
--- NOTE | 2024-11-17 13:44 | MHC.OFFVISCO ---
Intake Intake Visit Reasons: Anticoagulation Allergies No Known Allergies Allergy (Verified 11/17/24 13:24) Medication List - Last Reconciled 11/17/24 by Pat Lee RN amlodipine 5 mg PO DAILY diclofenac sodium 1% 4 grams topical QID 30 days hydrochlorothiazide 25 mg PO DAILY levothyroxine 75 mcg PO DAILY lisinopril 30 mg PO DAILY 90 days metoprolol tartrate 50 mg PO BID warfarin 4 mg See Protocol PO DAILY 30 days Nursing Note ambulates independently to clinic. reminded pt that he has labs he needs to do which are important since he stopped eliquis and amidoarone to see if labs return to normal especially thyroid and liver- explained it is not good for his heart if he is on thyroid med and dosesn't need it. It was explained he may possibly still need it but maybe not as much. reminder written on his warfarin dosing paper INR 1.5 out of therapeutic range Medications and supplements reviewed Patient status: well for him Medications or supplements: no changes Diet: good- stopped all cranberry - which may be why INR dropped so much Denies any signs and symptoms of bleeding or clotting or unusual bruising Bleeding, bruising, clotting discussed Nutritional guidance given: you eat and drink very little fruits and vegetables - maybe good idea to resume cranberry juice 2 glasses / week Dose: for now increase dose 4mg x 3 days/ 2mg x 4 days F/U INR Date : 11/22/24Thursday ?? Patient verbalizing understanding of instructions given with read back. PCP notified directly in workload and will f/u call. Anti-Coag Initial Assessment Social Hx Patient Tobacco Use Status: Never used Tobacco alcohol intake: current (Few / week/ vodka or beer ) Alcohol intake frequency: a few times a week Cardiovascular Hx: HTN and Arrhythmias (asymptomatic ) Endocrine Hx: Thyroid Disease (hypothyroid before amiodorone - need to monitor ) Musculoskeletal Hx: Arthritis Cancer HX: No (father lung cancer ) Psych. Illness/Depression: No Coding Level of Care Code Est Patient Level 1 Diagnoses Current use of anticoagulant therapy Z79.01 Assessment & Plan Assessment & Plan (1) Current use of anticoagulant therapy: Code(s): Z79.01 - [facility] (current) use of anticoagulants Category: Medical
--- OUTSIDE RECORDS SUMMARY | 2024-11-17 15:52 | XMS_ITS | Continuity of Care Document ---
Author Organization [facility] Address [facility] [place] [address]- Care Team Providers Care Transportation Dispatcher Name Role Phone Michelle HEADLEY, Angelo Chamorro Primary Care Physician [phone] Encounter [facility] Date(s): 10/17/24 - 11/16/24 [facility] [address] [place] [id number]- Attending Physician: Cruz Peña Admitting Physician: Cruz Peña Referring Physician: trCruz Encounter Type: Triage Allergies, Adverse Reactions, Alerts No Known Allergies Medications amLODIPine 5 mg oral tablet 1 tablet = 5 mg, By Mouth, Daily, # 30 tablet, 0 Refills, Maintenance, 10/17/24 8:27:00 AM EST, Tablet, Partial fill upon patient request if the prescription is for a schedule II opioid drug. Start Date: 10/17/24 Status: Ordered Quantity: 30.0 Unit: tablet Repeat number: 1 Hydrochlorothiazide By Mouth, Daily, 0 Refills, Maintenance, 10/17/24 8:29:00 AM EST, Partial fill upon patient request if the prescription is for a schedule II opioid drug. Start Date: 10/17/24 Status: Ordered Repeat number: 1 hydrochlorothiazide 25 mg oral tablet 25 mg, 1, tablet, By Mouth, Daily, Refills 0, Maintenance, 10/17/24 8:31:00 AM EST, Partial fill upon patient request if the prescription is for a schedule II opioid drug. Start Date: 10/17/24 Status: Ordered Repeat number: 1 levothyroxine 75 mcg (0.075 mg) oral tablet 1 tablet = 75 mcg, By Mouth, Daily, # 30 tablet, 0 Refills, Maintenance, 10/17/24 8:28:00 AM EST, Tablet, Partial fill upon patient request if the prescription is for a schedule II opioid drug. Start Date: 10/17/24 Status: Ordered Quantity: 30.0 Unit: tablet Repeat number: 1 lisinopril 30 mg oral tablet 1 tablet = 30 mg, By Mouth, Daily, # 30 tablet, 0 Refills, Maintenance, 10/17/24 8:28:00 AM EST, Tablet, Partial fill upon patient request if the prescription is for a schedule II opioid drug. Start Date: 10/17/24 Status: Ordered Quantity: 30.0 Unit: tablet Repeat number: 1 Metoprolol Tartrate 50 mg oral tablet TAKE 1 TABLET BY MOUTH TWICE DAILY Start Date: 10/17/24 Status: Ordered Repeat number: 1 warfarin 4 mg oral tablet 1 tablet = 4 mg, By Mouth, Daily, # 30 tablet, 0 Refills, Maintenance, 10/17/24 8:27:00 AM EST, Tablet, Partial fill upon patient request if the prescription is for a schedule II opioid drug. Start Date: 10/17/24 Status: Ordered Quantity: 30.0 Unit: tablet Repeat number: 1 Patient Care team information Care Team Personnel Name: Michelle HEADLEY , Angelo Chamorro Position: Reference Physician Member Role: PCP Address: [address] [place] [address] Telecom: Care Team Related Persons Name: ABAD ALBERTS Insurance Providers Guarantor name: ROYAL SIFUENTES [employer] Plan Information #: 1 Payer: [facility] MEDICARE ADV HMO Member Number: NA Policy Number: NA Group Number: NA
== END 2024-11-17 13:51 | disposition home or self-care (01) ==
LOC: HO.ACS 13:23
PROVIDERS: PCP Nurse Practitioner Family; Visit Provider Internal Medicine Medical Oncology
DX: Z79.01 Long term (current) use of anticoagulants (principal)

== ENCOUNTER → 2024-11-17 13:23 | Outpatient (BNVA) | payer MEDICARE, SELFPAY | PROVIDERS: PCP Nurse Practitioner Family; Visit Provider Internal Medicine Medical Oncology | DX: I48.91 Unspecified atrial fibrillation (principal); Z51.81 Encounter for therapeutic drug level monitoring; Z79.01 Long term (current) use of anticoagulants | CPT/HCPCS: 85610; 99211 ==

== ENCOUNTER 2024-11-21 10:18 | Outpatient (AMB) | payer MEDICARE, SELFPAY ==
[2024-11-21 10:20] VITALS: BMI 31.3
--- NOTE | 2024-11-21 10:20 | MHC.OFFVIS ---
Vital Signs 11/21/24 10:20 Height 5 ft 9 in Weight 212 lb BMI 31.3 Intake Visit Reasons: OV - Bilateral Knee OA - Discuss Rt TKA Intake Note: Vipul is a 74 year old male who presents today for a follow up of his bilateral knee OA. He was last seen with Guy who discussed surgical vs nonsurgical treatments. 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 The right knee is worse than the left and he would like to discuss Right TKA. Allergies No Known Allergies Allergy (Verified 11/21/24 10:20) HPI HPI OV - Bilateral Knee OA - Discuss Rt TKA: Details: Vipul is a 74 year old male who presents today for a follow up of his bilateral knee OA. He was last seen with Guy who discussed surgical vs nonsurgical treatments. 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 The right knee is worse than the left and he would like to discuss Right TKA. Now he cannot ambulate without difficulty. He states his capacity is about 10 minutes. [facility] Medical History (Updated 11/21/24 @ 12:24 by Jose Garrett MD) History of cardioversion SVT (supraventricular tachycardia) Long COVID Atrial fibrillation HTN (hypertension) Arthritis Surgical History Hx of hand surgery Hx of colonoscopy Hx of right knee surgery Family History Father No problems noted. Mother No problems noted. Social History Household Members: Spouse Housing: House Housing Other:: lives with Alcohol intake: current (Few / week/ vodka or beer ) Alcohol intake frequency: a few times a week Patient Tobacco Use Status: Never used Tobacco e-Cigarette/Vaping Use: Never Used service: No Current occupational status: retired Current occupation: retired Current occupational exposures/hazards: No Cognitive needs: No Hearing needs: No Vision needs: No Physical Exam Vital Signs: BMI result Body Mass Index 31.3 Extrem Other: moderate valgus mal-alignment right knee with lateral compartment ttp + gait antalgia Results Reviewed Results Reviewed: I personally reviewed relevant radiographs. Moderate valgus iwth severe DJD lateral compartment Assessment & Plan Assessment & Plan (1) Acquired genu valgum of right knee: Code(s): M21.061 - Valgus deformity, not elsewhere classified, right knee Category: Medical Plan: Valgus OA with severe gait dsiturbance and lateral comaprtment pain (2) Arthritis of right knee: Code(s): M17.11 - Unilateral primary osteoarthritis, right knee Category: Medical Plan: This is a 74-year-old with valgus pattern osteoarthritis of the right knee. His ambulatory capacity is 110 minutes and he would like to be more active. I recommend knee arthroplasty. I think this will benefit him in terms of pain and function. I discussed the procedure in detail with him. He does have a history of atrial fibrillation in his undergoing cardiac ablation soon. We will work with his fitter welder to obtain preoperative clearance. I discussed the risks benefits and alternatives including but not limited to the risk of pain, infection, stiffness, need for further surgery as well as potential medical complications such as blood clots, pulmonary embolism and cardiac complications. Coding Level of Care Code Est Pt Level 4 (68569) Diagnoses Acquired genu valgum of right knee M21.061 Arthritis of right knee M17.11
== END 2024-11-21 11:12 | disposition home or self-care (01) ==
LOC: HO.HOS 10:19
PROVIDERS: PCP Nurse Practitioner Family; Visit Provider Orthopaedic Surgery
DX: M21.061 Valgus deformity, not elsewhere classified, right knee (principal); M17.11 Unilateral primary osteoarthritis, right knee
CPT/HCPCS: 99214

== ENCOUNTER → 2024-11-21 10:18 | Outpatient (BNVA) | payer MEDICARE, SELFPAY | PROVIDERS: PCP Nurse Practitioner Family; Visit Provider Orthopaedic Surgery | DX: M17.0 Bilateral primary osteoarthritis of knee (principal); M21.061 Valgus deformity, not elsewhere classified, right knee | CPT/HCPCS: 99212 ==

== ENCOUNTER 2024-11-22 07:35 | Outpatient (REF) | payer MEDICARE, SELFPAY ==
[2024-11-22 10:16] LABS: MANUAL DIFF FLAG NO
[2024-11-22 10:21] LABS: Appearance Urine Clear; Color Urine Yellow; Glucose Urine UA Negative (Negative); Leukocyte Esterase Urine Negative (Negative); Nitrite Urine Negative (Negative); Urine Blood Negative (Negative); Urine Ketones Negative (Negative); Urine Protein Negative (Neg-Trace)
[2024-11-22 10:24] LABS: Basophils Percent Auto 0.9 % (0-2); Eosinophils Absolute Auto 0.1 X10*3/uL (0.0-0.4); Eosinophils Percent Auto 1.5 % (0-4); Hematocrit 44.7 % (42.0-52.0); Hemoglobin 14.9 g/dl (14.0-18.0); Imm Gran Abs Auto 0.02 X10*3/uL (0.00-0.03); Imm Gran Pct Auto 0.4 % (0.0-0.4); Lymphocytes Absolute Auto 1.3 X10*3/uL (1.2-4.9); Lymphocytes Percent Auto 28.3 % (20-40); Mean Corpuscular HGB Conc 33.3 g/dl (31.0-36.0); Mean Corpuscular Hemoglobin 31.5 pg (27.0-33.0); Mean Corpuscular Volume 94.5 fL (80.0-98.0); Mean Platelet Volume 9.7 fL (9.4-12.4); Monocytes Absolute Auto 0.7 X10*3/uL (0.1-1.2); Monocytes Percent Auto 15.2 % (2-11); Neutrophils Absolute Auto 2.5 x10*3/uL (2.0-8.3); Neutrophils Percent Auto 53.7 % (45-73); Platelet Count 265 X10*3/uL (160-400); Red Blood Count 4.73 X10*6/uL (4.60-5.80); Red Cell Distribution Width 14.2 % (11.0-16.0); White Blood Count 4.7 X10*3/uL (4.8-10.8)
[2024-11-22 11:15] LABS: Alanine Aminotransferase 29 U/L (0-40); Anion Gap 10 (12-20); Aspartate Amino Transferase 45 U/L (5-37); Bilirubin Direct 0.5 mg/dL (0.0-0.5); Blood Urea Nitrogen 21 mg/dL (9-16); Calcium 9.6 mg/dL (8.4-10.2); Carbon Dioxide 28 mmol/L (22-29); Chloride 103 mmol/L (96-108); Cholesterol 168 mg/dL (<200); Estimated Glomerular Filt Rate 51; Glucose Fasting 89 mg/dL (60-99); Glucose Random 89 mg/dL (60-115); HDL Cholesterol 63 mg/dL (>40); LDL Cholesterol Calculated 94 mg/dL (<100); Potassium 4.7 mmol/L (3.3-5.1); Sodium 136 mmol/L (135-145); Total Protein 7.2 g/dL (6.5-8.0); Triglycerides 58 mg/dL (<150)
[2024-11-22 11:46] LABS: Alkaline Phosphatase 59 U/L (39-117)
[2024-11-22 12:04] LABS: Prostate Specific Antigen Scr 0.73 ng/mL (<0.05-4.0)
[2024-11-22 12:15] LABS: TSH reflex Free T4 13.22 uIU/mL (0.32-4.0)
[2024-11-22 13:31] LABS: Free T4 (Free Thyroxine) 1.09 ng/dL (0.71-1.85)
== END 2024-11-22 07:36 | disposition home or self-care (01) ==
LOC: HO.HMGCLDS 07:35
PROVIDERS: Nurse Practitioner Family; PCP Nurse Practitioner Family; Visit Provider Nurse Practitioner Family
DX: Z00.00 Encounter for general adult medical examination without abnormal findings (principal); I48.91 Unspecified atrial fibrillation; I10 Essential (primary) hypertension; R60.9 Edema, unspecified; R79.89 Other specified abnormal findings of blood chemistry; Z12.5 Encounter for screening for malignant neoplasm of prostate; Z79.01 Long term (current) use of anticoagulants; Z51.81 Encounter for therapeutic drug level monitoring
CPT/HCPCS: 36415; 80053; 80061; 80076; 81003; 81256; 82248; 84153; 84439; 84443; 85025; 85610; 99211

== ENCOUNTER 2024-11-22 13:08 | Outpatient (AMB) | payer MEDICARE, SELFPAY ==
[2024-11-22 13:31] LABS: Prothrombin Time Whole Bld POC 18.8 sec (11.1-13.5); ~PT, ~INR - Anti Coag Clinic 1.6 (0.9-1.1)
--- NOTE | 2024-11-22 13:41 | MHC.OFFVISCO ---
Intake Intake Visit Reasons: Anticoagulation Allergies No Known Allergies Allergy (Verified 11/22/24 13:21) Medication List - Last Reconciled 11/22/24 by Dana Martinez RN amlodipine 5 mg PO DAILY diclofenac sodium 1% 4 grams topical QID 30 days hydrochlorothiazide 25 mg PO DAILY levothyroxine 75 mcg PO DAILY lisinopril 30 mg PO DAILY 90 days metoprolol tartrate 50 mg PO BID warfarin 4 mg See Protocol PO DAILY 30 days Nursing Note INR: 1.6?out of therapeutic range 2-3 Pt denies missed dose Medications and supplements reviewed Patient status: feels well Medications or supplements: no changes Diet: usual diet for pt Denies any signs and symptoms of bleeding or clotting or unusual bruising Bleeding, bruising, clotting discussed Nutritional guidance given: avoid greens X 2 days but pt does not eat vegetables Dose: Increase today's dose to 4mg (2mg), then 4mg (usual dose) the next day and increase the following day to 4mg (2mg) then resume usual dose of 2mg X 4 days and 4mg X 3 days (M/W/F) F/U INR Date : 6 days?? Patient verbalizing understanding of instructions given. Anti-Coag Initial Assessment Social Hx Patient Tobacco Use Status: Never used Tobacco alcohol intake: current (Few / week/ vodka or beer ) Alcohol intake frequency: a few times a week Cardiovascular Hx: HTN and Arrhythmias (asymptomatic ) Endocrine Hx: Thyroid Disease (hypothyroid before amiodorone - need to monitor ) Musculoskeletal Hx: Arthritis Cancer HX: No (father lung cancer ) Psych. Illness/Depression: No Coding Level of Care Code Est Patient Level 1 Diagnoses Current use of anticoagulant therapy Z79.01 Results AMB INR Fingerstick AMB INR Fingerstick 1.6 Last Edit by Dana Martinez RN on 11/22/24 13:37 interface delay Assessment & Plan Assessment & Plan (1) Current use of anticoagulant therapy: Code(s): Z79.01 - jail (current) use of anticoagulants Category: Medical
== END 2024-11-22 13:47 | disposition home or self-care (01) ==
LOC: HO.ACS 13:08
PROVIDERS: PCP Nurse Practitioner Family; Visit Provider Internal Medicine Medical Oncology
DX: Z79.01 Long term (current) use of anticoagulants (principal)

== ENCOUNTER 2024-11-28 13:26 | Outpatient (AMB) | payer MEDICARE, SELFPAY ==
--- NOTE | 2024-11-28 13:46 | MHC.OFFVISCO ---
Intake Intake Visit Reasons: Anticoagulation Allergies No Known Allergies Allergy (Verified 11/28/24 13:32) Medication List - Last Reconciled 11/28/24 by Pat Lee RN amlodipine 5 mg PO DAILY diclofenac sodium 1% 4 grams topical QID 30 days hydrochlorothiazide 25 mg PO DAILY levothyroxine 88 mcg PO DAILY lisinopril 30 mg PO DAILY 90 days metoprolol tartrate 50 mg PO BID warfarin 4 mg See Protocol PO DAILY 30 days Nursing Note INR: 2.6 in therapeutic range ( RECEIVD BOOSTER DOSES LAST VISIT) Medications and supplements reviewed Pt throid med increased which also may raise the INR Denies any signs and symptoms of bleeding or bruising or clotting. Bleeding, bruising, clotting discussed Nutritional guidance given - have blue berries and pistachios Dose: keep same for now and f/u next week, 4mg x 3 days/ 2mg x 4 days F/U INR: 1 week Patient verbalizes understanding of instructions given Anti-Coag Initial Assessment Social Hx Patient Tobacco Use Status: Never used Tobacco alcohol intake: current (Few / week/ vodka or beer ) Alcohol intake frequency: a few times a week Cardiovascular Hx: HTN and Arrhythmias (asymptomatic ) Endocrine Hx: Thyroid Disease (hypothyroid before amiodorone - need to monitor ) Musculoskeletal Hx: Arthritis Cancer HX: No (father lung cancer ) Psych. 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
[2024-11-28 14:02] LABS: Prothrombin Time Whole Bld POC 30.8 sec (11.1-13.5); ~PT, ~INR - Anti Coag Clinic 2.6 (0.9-1.1)
== END 2024-11-28 13:49 | disposition home or self-care (01) ==
LOC: HO.ACS 13:26
PROVIDERS: PCP Nurse Practitioner Family; Visit Provider Internal Medicine Medical Oncology
DX: Z79.01 Long term (current) use of anticoagulants (principal)

== ENCOUNTER → 2024-11-28 13:26 | Outpatient (BNVA) | payer MEDICARE, SELFPAY | PROVIDERS: PCP Nurse Practitioner Family; Visit Provider Internal Medicine Medical Oncology | DX: I48.91 Unspecified atrial fibrillation (principal); Z51.81 Encounter for therapeutic drug level monitoring; Z79.01 Long term (current) use of anticoagulants | CPT/HCPCS: 85610; 99211 ==

== ENCOUNTER 2024-12-08 14:18 | Outpatient (AMB) | payer MEDICARE, SELFPAY ==
[2024-12-08 14:30] LABS: Prothrombin Time Whole Bld POC 34.1 sec (11.1-13.5); ~PT, ~INR - Anti Coag Clinic 2.8 (0.9-1.1)
--- NOTE | 2024-12-08 14:41 | MHC.OFFVISCO ---
Intake Intake Visit Reasons: Anticoagulation Allergies No Known Allergies Allergy (Verified 12/08/24 14:19) Medication List - Last Reconciled 12/08/24 by Pat Lee RN amlodipine 5 mg PO DAILY diclofenac sodium 1% 4 grams topical QID 30 days hydrochlorothiazide 25 mg PO DAILY levothyroxine 88 mcg PO DAILY lisinopril 30 mg PO DAILY 90 days metoprolol tartrate 50 mg PO BID warfarin 4 mg See Protocol PO DAILY 30 days Nursing Note INR: 2.8 in therapeutic range Medications and supplements reviewed Thryoid med increased 2 weeks ago - an raise the INR Denies any signs and symptoms of bleeding or bruising or clotting. Bleeding, bruising, clotting discussed Nutritional guidance given Dose: with increase in INR s/p throid med increase decrease dose due to 4mg x 2 days/ 2mg x 5 days F/U INR: 2 weeks Patient verbalizes understanding of instructions given Anti-Coag Initial Assessment Social Hx Patient Tobacco Use Status: Never used Tobacco alcohol intake: current (Few / week/ vodka or beer ) Alcohol intake frequency: a few times a week Cardiovascular Hx: HTN and Arrhythmias (asymptomatic ) Endocrine Hx: Thyroid Disease (hypothyroid before amiodorone - need to monitor ) Musculoskeletal Hx: Arthritis Cancer HX: No (father lung cancer ) Psych. 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
--- OUTSIDE RECORDS SUMMARY | 2024-12-08 17:02 | XMS_ITS | Continuity of Care Document ---
Author Organization [facility] Address [facility] [place] [address]- Care Team Providers Care Physical Aerodynamicist Name Role Phone Michelle HEADLEY, Angelo Chamorro Primary Care Physician Encounter [facility] Date(s): 11/07/24 - 12/07/24 [facility] [address] [place] [phone]- Encounter Type: Triage Allergies, Adverse Reactions, Alerts [...] Position: Reference Physician Member Role: PCP Address: [address] [place] [address] Telecom: Care Team Related Persons Name: ABAD ALBERTS Insurance Providers Guarantor name: ROYAL SIFUENTES Right [employer] Plan Information #: 1 Payer: [employer] MEDICARE ADV HMO Member Number: NA Policy Number: NA Group Number: NA
== END 2024-12-08 14:50 | disposition home or self-care (01) ==
LOC: HO.ACS 14:18
PROVIDERS: PCP Nurse Practitioner Family; Visit Provider Internal Medicine Medical Oncology
DX: Z79.01 Long term (current) use of anticoagulants (principal)

== ENCOUNTER → 2024-12-08 14:18 | Outpatient (BNVA) | payer MEDICARE, SELFPAY | PROVIDERS: PCP Nurse Practitioner Family; Visit Provider Internal Medicine Medical Oncology | DX: I48.91 Unspecified atrial fibrillation (principal); Z51.81 Encounter for therapeutic drug level monitoring; Z79.01 Long term (current) use of anticoagulants | CPT/HCPCS: 85610; 99211 ==

== ENCOUNTER 2024-12-21 12:58 | Outpatient (AMB) | payer MEDICARE, SELFPAY ==
--- NOTE | 2024-12-21 13:02 | A.OFFPC_ITS ---
Vital Signs 12/21/24 13:04 12/21/24 13:54 Height 5 ft 9 in Weight 218 lb BMI 32.2 BP 140/72 H 130/78 Blood Pressure Location Lt brachial Lt brachial Position Sitting Sitting Respiration 15 Pulse 69 Pulse Source Pulse Oximeter Temp 97.3 F Temp Source Oral Pulse Oximetry (%) 95 Oxygen Delivery Method Room Air Intake Visit Reasons: CPE - see comments Allergies No Known Allergies Allergy (Verified 12/21/24 14:01) Medication List - Last Reconciled 12/21/24 by ARELI Bowen- amlodipine 5 mg PO DAILY diclofenac sodium 1% 4 grams topical QID 30 days hydrochlorothiazide 25 mg PO DAILY levothyroxine 88 mcg PO DAILY lisinopril 30 mg PO DAILY 90 days metoprolol tartrate 50 mg PO BID warfarin 4 mg See Protocol PO DAILY 30 days Tobacco use date assessed: 12/21/24 Fall risk assessment: 2 + Falls in past year Last assessed Fall Risk: 12/21/24 Dental Screening Dental Screen Date: 12/21/24 Did you have a dental visit in the last 12 months?: Yes Did you have a dental problem in the last 6 months where you did not have access to dental care?: No Was dental information given to patient?: Patient has dentist HPI CPE - see comments HPI Details History of Present Illness The patient is a 74-year-old male presenting for follow-up on multiple chronic medical issues and preventative care. His essential hypertension is well- controlled at present. His atrial fibrillation is monitored by a document review specialist, with an upcoming ablation procedure planned. The patient had elevated ferritin levels, previously managed in hematology care, and screens for liver fibrosis conducted last year warrant further follow-up. He has ongoing right knee pain managed by an library media specialist. The patient denied staying current with vaccinations at today's visit. Routine health maintenance indicates he is up to date with colonoscopy and PSA screenings. Thyroid function led to an increase in levothyroxine dosage to improve TSH levels. He consumes four to five alcoholic drinks weekly. Health Maintenance - Colon screening: Up to date - PSA: Up to date - Blood pressure control: Stable - Thyroid function monitoring: Levothyro xine increase; to repeat TSH in one to two months - Lifestyle recommendations: Continue mo nitoring alcohol consumption Social History - Alcohol use: Consumes 4-5 drinks weekl y Review of Systems - Cardiovascular: Reports atrial fibrill ation, stable blood pressure - Musculoskeletal: Reports right knee pa in - Endocrine: Reports hypothyroidism - Hematologic: Reports previously elevat ed ferritin, currently stable - Gastrointestinal: Reports history of l iver fibrosis screening Physical Exam General: Cooperative, healthy appearing, comfortable, no acute distress and well developed, obese Orientation: Patient oriented x3 Limitations: No limitations Head: Normal to inspection Ears: Hearing grossly normal bilaterally Nose: Normal external nose present Face and sinus: Normal facial exam Eyes: Appearance normal, both eyes and all related structures Neck: Normal visual inspection and Yes full ROM Respiratory: Normal respiratory effort and able to speak in complete sentences. Clear to auscultation bilaterally Cardiovascular: Regular rate and rhythm. Normal S1 and S2. GI: Normal to inspection. Soft to palpation and nontender Skin: No rashes or lesions noted Neuro: Patient oriented x3 Extremities: +1 pitting edema in lower extremities. Normal to inspection. Results - Screening for liver fibrosis conducted last year - Ultrasound showed no significant venou s insufficiency Plan We will repeat an abdominal ultrasound to evaluate the liver fibrosis observed last year. The patient will receive a referral to gastroenterology for evaluation of previously noted liver enzyme levels. Levothyroxine was increased based on thyroid function tests, with plans to repeat the TSH test in one to two months. Continued cardiology follow-up is essential as the patient undergoes ablation for atrial fibrillation. The patient is referred to orthopedics for ongoing knee pain management. It is advised to manage hypertension with hydrochlorothiazide, maintain consistent alcohol consumption, and revisit vaccination options during future visits. Discussion Notes I discussed with the patient the management and follow-up required for his multiple chronic medical conditions. The rationale for increasing levothyroxine dosage due to thyroid changes was explained, and the importance of rechecking TSH levels was emphasized. We reviewed the past liver function and fibrosis assessments, with plans for further follow-up through a repeat ultrasound and a gastroenterology consultation. Management strategies for atrial fibrillation, including an upcoming ablation, were reviewed, and he remains under cardiology care. We reiterated lifestyle modifications, particularly in reducing alcohol consumption to support liver health and managing cardiovascular risk. I encouraged him to consider vaccinations at future visits and the importance of staying up to date with preventative care. Patient Instructions - Schedule repeat ultrasound for abdomin al examination. - Continue follow-up with gastroenterolo gy for liver enzyme evaluation. - Take levothyroxine as prescribed, and return for TSH testing in one to two months. - Follow up with cardiology on plans for ablation. - Maintain blood pressure with hydrochlo rothiazide as directed. - Limit alcohol consumption to manage li alida health. - Consider discussing vaccinations at th e next visit. - Raise feet when sitting or lying down to manage edema. [facility] Medical History (Updated 12/21/24 @ 14:01 by Angelo Martinez [facility]) History of cardioversion SVT (supraventricular tachycardia) Long COVID Atrial fibrillation HTN (hypertension) Arthritis Surgical History Hx of hand surgery Hx of colonoscopy Hx of right knee surgery Family History Father No problems noted. Mother No problems noted. Social History Household Members: Spouse Housing: House Housing Other:: lives with Alcohol intake: current (Few / week/ vodka or beer ) Alcohol intake frequency: a few times a week Patient Tobacco Use Status: Never used Tobacco e-Cigarette/Vaping Use: Never Used service: No Current occupational status: retired Current occupation: retired Current occupational exposures/hazards: No Cognitive needs: No Hearing needs: No Vision needs: No Questionnaire PHQ-9 Over the last 2 weeks, how often have you been bothered by any of the following problems? 1. Little interest or pleasure in doing things: not at all 2. Feeling down, depressed, or hopeless: not at all 3. Trouble falling or staying asleep, or sleeping too much: not at all 4. Feeling tired or having little energy: not at all 5. Poor appetite or overeating: not at all 6. Feeling bad about yourself - or that you are a failure or have let yourself or your family down: not at all 7. Trouble concentrating on things, such as reading the newspaper or watching television: not at all 8. Moving or speaking so slowly that other people could have noticed. Or the opposite - being so fidgety or restless that you have been moving around a lot more than usual: not at all 9. Thoughts that you would be better off or of hurting yourself in some way: not at all Total score: 0 Depression Screening Interpretation: Negative Depression Screening Done: Yes 16954 - PHQ-9 Billing: Yes Source: Developed by Drs. Terry Cline, Shagufta Moreno, John Leo and colleagues, with an educational sandhya from [employer]. Thrive Questionnaire Date Thrive assessed: 03/30/24 I am a: Patient What is your living situation today?: I have a steady place to live Within the past 12 months, did the food you bought not last and you didn't have the money to get more?: Never true Within the past 12 months, did you worry whether your food would run out before you got money to buy more?: Never true Do you have trouble paying for medicines?: No Do you have trouble getting transportation to medical appointments?: No Do you have trouble paying your heating and electricity bill?: No Do you have trouble taking care of your child, family member or friend?: No Do you have trouble with day-to-day activities such as bathing, preparing meals, shopping, managing finances, etc.?: No Are you currently unemployed and looking for a job?: No Are you interested in more education?: No Please select the resources that you would like help with: None Currently or been in a relationship where the following occur: No concerns reported THRIVE Score: 0 AUDIT C Alcohol Use Questionnaire (AUDIT-C) 1. How often do you have a drink containing alcohol?: 2-3 times a week 2. How many drinks containing alcohol do you have on a typical day when you are drinking?: 7 to 9 3. How often do you have six or more drinks on one occasion?: Never Total Score: 6 Score Reviewed/Action Taken: Yes GUERA-7 AMB Questionnaire GUERA-7 Date GUERA - 7 assessed: 06/20/24 Feeling nervous, anxious, or on edge: 0 = Not at all Not being able to stop or control worryin = Not at all Worrying too much about different things: 0 = Not at all Trouble relaxin = Not at all Being so restless that it is hard to sit still: 0 = Not at all Becoming easily annoyed or irritable: 0 = Not at all Feeling afraid as if something awful might happen: 0 = Not at all Total GUERA-7 score (0-4 normal; 5-9 mild; 10-14 moderate; 15-21 severe): 0 Source: Developed by Drs. Terry Cline, Shagufta Moreno, John Leo and colleagues, with an educational sandhya from [employer]. Physical exam (Primary Care) Vital Signs: Last Vital Signs Temp 97.3 F 12/21/24 13:04 Pulse 69 12/21/24 13:04 Resp 15 12/21/24 13:04 BP 140/72 H 12/21/24 13:04 Pulse Ox 95 12/21/24 13:04 Oxygen Delivery Method Room Air 12/21/24 13:04 BMI result Body Mass Index 32.2 Tobacco/Smoking Status: Tobacco use Status Tobacco use date assessed 12/21/24 12/21/24 13:08 Patient Tobacco Use Status Never used Tobacco 12/21/24 13:04 e-Cigarette/Vaping Use Never Used 12/21/24 13:04 PHQ-9: PHQ-9 Score PHQ-9: Total score 0 12/21/24 13:35 Depression Screening Interpretation: Negative Thrive Assessment: Date of Thrive Assessment Date Thrive assessed 03/30/24 12/21/24 13:04 Currently or been in a relationship where the following occur: No concerns reported Coding Level of Care Code Est Pt Prev Care >65y(23448) Diagnoses Elevated TSH R79.89 Elevated liver enzymes R74.8 Liver fibrosis K74.00 Physical exam Z00.00 Additional Codes PHQ-9 - 92852 - PHQ-9 Billing: Yes ([id number]) Assessment & Plan Assessment & Plan (1) Elevated TSH: Code(s): R79.89 - Other specified abnormal findings of blood chemistry Category: Medical (2) Elevated liver enzymes: Code(s): R74.8 - Abnormal levels of other serum enzymes Category: Medical (3) Liver fibrosis: Code(s): K74.00 - Hepatic fibrosis, unspecified Category: Medical (4) Physical exam: Code(s): Z00.00 - Encounter for general adult medical examination without abnormal findings Category: Medical Plan . Orders: Orders Liver Fibrosis Pnl Today R74.8 - Abnormal levels of other serum enzymes TSH reflex Free T4 Today R79.89 - Other specified abnormal findings of blood chemistry US abdomen complete Today R74.8 - Abnormal levels of other serum enzymes Referrals Gastroenterology Referral K74.00 - Hepatic fibrosis, unspecified
[2024-12-21 13:04] VITALS: BP 140/72; PULSE 69; RESP 15; TEMP 36.3; O2SAT 95; BMI 32.2
[2024-12-21 13:54] VITALS: BP 130/78
== END 2024-12-21 13:56 | disposition home or self-care (01) ==
LOC: HO.HMCC 12:59
PROVIDERS: PCP Nurse Practitioner Family; Visit Provider Nurse Practitioner Family
DX: R79.89 Other specified abnormal findings of blood chemistry (principal); R74.8 Abnormal levels of other serum enzymes; K74.00 Hepatic fibrosis, unspecified; Z00.00 Encounter for general adult medical examination without abnormal findings

== ENCOUNTER → 2024-12-21 12:58 | Outpatient (BNVA) | payer MEDICARE, SELFPAY | PROVIDERS: PCP Nurse Practitioner Family; Visit Provider Nurse Practitioner Family | DX: Z00.00 Encounter for general adult medical examination without abnormal findings (principal); I10 Essential (primary) hypertension; I48.91 Unspecified atrial fibrillation; M25.561 Pain in right knee; R79.89 Other specified abnormal findings of blood chemistry; R74.8 Abnormal levels of other serum enzymes; K74.00 Hepatic fibrosis, unspecified | CPT/HCPCS: 96127; 99397 ==

== ENCOUNTER 2024-12-22 13:27 | Outpatient (AMB) | payer MEDICARE, SELFPAY ==
[2024-12-22 13:29] VITALS: BP 132/70; PULSE 68; BMI 32.0
--- NOTE | 2024-12-22 13:29 | A.OFFVIS_ITS ---
Vital Signs 12/22/24 13:29 Height 5 ft 9 in Weight 216 lb 14.958 oz BMI 32.0 BP 132/70 Blood Pressure Location Lt brachial Position Sitting Pulse 68 Pulse Source Monitor Intake Visit Reasons: 3-4m follow up/ p;re op perDC Carburetor Repairer Required: No Licensed Home Inspector: Licensed Home Inspector Present Allergies No Known Allergies Allergy (Verified 12/22/24 14:07) Medication List - Last Reconciled 12/22/24 by Louise Brizuela NP-C amlodipine 5 mg PO DAILY hydrochlorothiazide 25 mg PO DAILY levothyroxine 88 mcg PO DAILY lisinopril 30 mg PO DAILY 90 days metoprolol tartrate 50 mg PO BID warfarin 4 mg See Protocol PO DAILY 30 days HPI HPI 3-4m follow up/ p;re op perDC: Details: Vipul is a 74-year-old male with past medical history of hypertension, frequent PACs with newer persistent atrial fibrillation who, after 1 month of anticoagulation, underwent a cardioversion with Dr. Chand and was started on amiodarone. He has not had known recurrent atrial fibrillation since that time. He did have elevated LFTs and TSH and amiodarone was stopped. He was continued on metoprolol and Eliquis and referred to electrophysiology for ablation. He now presents for follow-up. Today he reports that he is scheduled to undergo atrial fibrillation ablation on 01/03/2025. He is questioning today whether he needs the procedure or not. Spent time going over atrial fibrillation and that this rhythm can occur at any point. He is still hoping to have knee surgery and then near future. He is denying any heart palpitations. He uses a cardio mobile device and has not recorded any AFib. No chest discomfort at rest or with activity. No shortness of breath, PND, orthopnea or edema. His activity is limited by knee pain. He is compliant with his medications. He was not able to afford the co-pay is of [employer]. He is now on Coumadin and [place] [facility] [place] [facility]. His is present. [facility] Medical History History of cardioversion SVT (supraventricular tachycardia) Long COVID Atrial fibrillation HTN (hypertension) Arthritis Surgical History Hx of hand surgery Hx of colonoscopy Hx of right knee surgery Family History Father No problems noted. Mother No problems noted. Social History Household Members: Spouse Housing: House Housing Other:: lives with Alcohol intake: current Alcohol intake frequency: a few times a week Patient Tobacco Use Status: Never used Tobacco e-Cigarette/Vaping Use: Never Used service: No Current occupational status: retired Current occupation: retired Current occupational exposures/hazards: No Cognitive needs: No Hearing needs: No Vision needs: No Review of Systems Const All systems reviewed & are unremarkable except as noted in HPI and below ENT Denies dizziness Card Denies chest pain, Denies chest pain at rest, Denies chest pain with activity, Denies rapid heart rate, Denies pedal edema, Denies edema, Denies leg edema, D enies lightheadedness, Denies palpitations, Denies dyspnea, Denies dyspnea on exertion and Denies orthopnea Resp Denies cough, Denies dyspnea and Denies dyspnea on exertion GI Denies hematochezia and Denies change in stool character Musc Denies abnormal gait, Reports limited range of motion, Reports muscle cramps, Denies muscle weakness, Denies numbness, Denies radiating pain into limb, Denies stiffness and Denies tingling Neuro Denies abnormal gait, Denies dizziness, Denies numbness and Denies tingling Endo Denies palpitations Physical Exam Vital Signs: Last Vital Signs Pulse 68 12/22/24 13:29 BP 132/70 12/22/24 13:29 BMI result Body Mass Index 32.0 Const General: cooperative, healthy appearing, comfortable and no acute distress Orientation/consciousness: patient oriented x3 Neck Neck: Yes normal visual inspection and Yes no JVD Resp Effort & Inspection: normal respiratory effort Auscultation: clear to auscultation bilaterally, no rales, no rhonchi and no wheezes Cardio Rate: regular rate Rhythm: regular rhythm Heart sounds: S1 normal heart sound present, S2 normal heart sound present, no murmurs and no rubs Neuro General: patient oriented x3 Extrem General: Yes normal to inspection and No no pedal edema Psych Appearance: grossly normal Mental Status: mental status grossly normal Speech and movement: Normal speech and movement present Office Procedures EKG Details: Today, read by me, normal sinus rhythm, T-wave abnormality inferiorly and V2 through V6 - unchanged from prior EKG, rate 68, QTC 457 millisecond [id number], Complete Assessment & Plan Assessment & Plan (1) New onset a-fib: Code(s): I48.91 - Unspecified atrial fibrillation Category: Medical Plan: History of frequent PACs and more recently was found to have atrial fibrillation. He underwent a nuclear stress test on 06/10/2024, and was found to have AFib that day. The nuclear perfusion imaging was normal. Holter monitor applied on 06/10/2024 for 1 day 18 hours showed atrial fibrillation with average heart rate 56, rare ventricular ectopy. He reported symptoms of shortness of breath with activity. Echocardiogram was done on 05/25/2024 showing EF 62%, no valve abnormalities, moderate biatrial enlargement. He underwent cardioversion with Dr. Chand on 07/27/2024, successfully converting to sinus rhythm. He was started on amiodarone but then had elevated LFTs and TSH. The amiodarone was stopped and he is now just on metoprolol. He has had no recurrent AFib since that time. He is scheduled to undergo atrial fibrillation ablation on 01/03/2025. No med changes made at this time. Continue metoprolol. Continue Coumadin with INR goal 2-3. Emergency care if needed for symptoms. Cardiology follow-up in 2-3 months, sooner if needed. (2) Essential hypertension: Code(s): I10 - Essential (primary) hypertension Category: Medical Plan: Blood pressure goal less than 130/80. Blood pressure currently normal range. Continue amlodipine, Lasix, lisinopril without change. (3) Atrial arrhythmia: Code(s): I49.8 - Other specified cardiac arrhythmias Category: Medical Plan: History of very frequent PACs. He had been on metoprolol to help suppress. He has PAF as described above. Currently he denies any heart palpitations. (4) Edema: Code(s): R60.9 - Edema, unspecified Category: Medical Plan: Lower extremity edema Worse on higher dose amlodipine. Currently mild. (5) Abnormal EKG: Code(s): R94.31 - Abnormal electrocardiogram [ECG] [EKG] Category: Medical Plan: His EKGs show T-wave abnormalities. He did have nuclear stress test which was normal. He has no anginal sounding symptoms. Subsequent EKGs have remained unchanged. Plan Time spent on chart review, documentation, interview and assessment Coding Level of Care Code Est Pt Level 4 (90141) Complex EM visit Add On G2211 Diagnoses New onset a-fib I48.91 Essential hypertension I10 Atrial arrhythmia I49.8 Edema R60.9 Abnormal EKG R94.31 CPT Codes EKG - CPT: [id number], Complete ([id number])
== END 2024-12-22 14:08 | disposition home or self-care (01) ==
LOC: HO.HCS 13:27
PROVIDERS: PCP Nurse Practitioner Family; Visit Provider Nurse Practitioner Family
DX: I48.91 Unspecified atrial fibrillation (principal); I10 Essential (primary) hypertension; I49.8 Other specified cardiac arrhythmias; R60.9 Edema, unspecified; R94.31 Abnormal electrocardiogram [ECG] [EKG]
CPT/HCPCS: 93010; 99214; G2211

== ENCOUNTER → 2024-12-22 13:27 | Outpatient (BNVA) | payer MEDICARE, SELFPAY | PROVIDERS: PCP Nurse Practitioner Family; Visit Provider Nurse Practitioner Family | DX: I10 Essential (primary) hypertension (principal); I48.91 Unspecified atrial fibrillation; I49.8 Other specified cardiac arrhythmias; R60.9 Edema, unspecified; R94.31 Abnormal electrocardiogram [ECG] [EKG]; Z79.01 Long term (current) use of anticoagulants; Z51.81 Encounter for therapeutic drug level monitoring | CPT/HCPCS: 85610; 93005; 99211; 99212 ==

== ENCOUNTER 2024-12-22 14:05 | Outpatient (AMB) | payer MEDICARE, SELFPAY ==
[2024-12-22 14:12] LABS: Prothrombin Time Whole Bld POC 33.9 sec (11.1-13.5); ~PT, ~INR - Anti Coag Clinic 2.8 (0.9-1.1)
--- NOTE | 2024-12-22 14:18 | MHC.OFFVISCO ---
Intake Intake Visit Reasons: Anticoagulation Allergies No Known Allergies Allergy (Verified 12/22/24 14:07) Medication List - Last Reconciled 12/22/24 by Alysha Muñoz RN amlodipine 5 mg PO DAILY hydrochlorothiazide 25 mg PO DAILY levothyroxine 88 mcg PO DAILY lisinopril 30 mg PO DAILY 90 days metoprolol tartrate 50 mg PO BID warfarin 4 mg See Protocol PO DAILY 30 days Nursing Note PT.TO HAVE CARDIAC ABLATION ON 01/03 IN MEANTIME CONTINE PRESENT WARFARIN DOSE AND FOLLOW-UP HERE ON 01/10. TO CALL [facility] AFTER PROCEDURE IF ANY MED CHANGES ORDERED GOOD UNDERSTANDING OF DOSING INSTR. Anti-Coag Initial Assessment Social Hx Patient Tobacco Use Status: Never used Tobacco alcohol intake: current Alcohol intake frequency: a few times a week Cardiovascular Hx: HTN and Arrhythmias Endocrine Hx: Thyroid Disease Musculoskeletal Hx: Arthritis Cancer HX: No (father lung cancer ) Psych. Illness/Depression: No Coding Level of Care Code Est Patient Level 1 Diagnoses Current use of anticoagulant therapy Z79.01 Assessment & Plan Assessment & Plan (1) Current use of anticoagulant therapy: Code(s): Z79.01 - snf (current) use of anticoagulants Category: Medical
== END 2024-12-22 14:20 | disposition home or self-care (01) ==
LOC: HO.ACS 14:05
PROVIDERS: PCP Nurse Practitioner Family; Visit Provider Internal Medicine Medical Oncology
DX: Z79.01 Long term (current) use of anticoagulants (principal)

== ENCOUNTER 2025-01-10 13:27 | Outpatient (AMB) | payer MEDICARE, SELFPAY ==
[2025-01-10 13:37] LABS: Prothrombin Time Whole Bld POC 17.1 sec (11.1-13.5); ~PT, ~INR - Anti Coag Clinic 1.4 (0.9-1.1)
--- NOTE | 2025-01-10 13:40 | MHC.OFFVISCO ---
Intake Intake Visit Reasons: Anticoagulation Allergies No Known Allergies Allergy (Verified 01/10/25 13:28) Medication List - Last Reconciled 01/10/25 by Pat Lee RN amlodipine 5 mg PO DAILY hydrochlorothiazide 25 mg PO DAILY levothyroxine 88 mcg PO DAILY lisinopril 30 mg PO DAILY 90 days metoprolol tartrate 50 mg PO BID warfarin 4 mg See Protocol PO DAILY 30 days Nursing Note INR 1.4 out of therapeutic range Medications and supplements reviewed Patient status: s/p ablation 01/03/2025 1 week ago- he stated he was not in afib at time of ablation but they wanted to ablate the spot where the afib had come from. 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 Patient verbalizing understanding of instructions given. Anti-Coag Initial Assessment Social Hx Patient Tobacco Use Status: Never used Tobacco alcohol intake: current Alcohol intake frequency: a few times a week Cardiovascular Hx: HTN and Arrhythmias Endocrine Hx: Thyroid Disease Musculoskeletal Hx: Arthritis Cancer HX: No (father lung cancer ) Psych. Illness/Depression: No Coding Level of Care Code Est Patient Level 1 Diagnoses Current use of anticoagulant therapy Z79.01 Results AMB INR Fingerstick AMB INR Fingerstick 1.4 Last Edit by Pat Lee RN on 01/10/25 13:37 manual entry Assessment & Plan Assessment & Plan (1) Current use of anticoagulant therapy: Code(s): Z79.01 - halfway (current) use of anticoagulants Category: Medical
== END 2025-01-10 13:48 | disposition home or self-care (01) ==
LOC: HO.ACS 13:27
PROVIDERS: PCP Nurse Practitioner Family; Visit Provider Internal Medicine Medical Oncology
DX: Z79.01 Long term (current) use of anticoagulants (principal)

== ENCOUNTER → 2025-01-10 13:27 | Outpatient (BNVA) | payer MEDICARE, SELFPAY | PROVIDERS: PCP Nurse Practitioner Family; Visit Provider Internal Medicine Medical Oncology | DX: I48.91 Unspecified atrial fibrillation (principal); Z79.01 Long term (current) use of anticoagulants; Z51.81 Encounter for therapeutic drug level monitoring | CPT/HCPCS: 85610; 99211 ==

== ENCOUNTER 2025-01-13 13:22 | Outpatient (AMB) | payer MEDICARE, SELFPAY ==
[2025-01-13 13:28] LABS: Prothrombin Time Whole Bld POC 17.3 sec (11.1-13.5); ~PT, ~INR - Anti Coag Clinic 1.4 (0.9-1.1)
--- NOTE | 2025-01-13 13:36 | MHC.OFFVISCO ---
Intake Intake Visit Reasons: Anticoagulation Allergies No Known Allergies Allergy (Verified 01/13/25 13:23) Medication List - Last Reconciled 01/13/25 by Pat Lee RN amlodipine 5 mg PO DAILY hydrochlorothiazide 25 mg PO DAILY levothyroxine 88 mcg PO DAILY lisinopril 30 mg PO DAILY 90 days metoprolol tartrate 50 mg PO BID warfarin 4 mg See Protocol PO DAILY 30 days Nursing Note Pt comes to clinic by self A+O denies any chest pain or sob or stroke s/sx INR low x 2 now - states he checks his heart daily with his cardia machine and states he does not have afib INR 1.4 out of therapeutic range Medications and supplements reviewed Patient status: cardiac ablation 01/03/2025 Medications or supplements: no change per pt Diet: good Denies any signs and symptoms of bleeding or clotting or unusual bruising Bleeding, bruising, clotting discussed Nutritional guidance given: avoid all greens or foods that can lower the INR Dose: 6mg today then 4mg x 3 days/ 2mg x 4 days F/U INR Date : pt refused sooner than next 01/19/25?? Patient verbalizing understanding of instructions given. Msg to PCP regarding pt status Anti-Coag Initial Assessment Social Hx Patient Tobacco Use Status: Never used Tobacco alcohol intake: current Alcohol intake frequency: a few times a week Cardiovascular Hx: HTN and Arrhythmias Endocrine Hx: Thyroid Disease Musculoskeletal Hx: Arthritis Cancer HX: No (father lung cancer ) Psych. Illness/Depression: No Coding Level of Care Code Est Patient Level 1 Diagnoses Current use of anticoagulant therapy Z79.01 Assessment & Plan Assessment & Plan (1) Current use of anticoagulant therapy: Code(s): Z79.01 - nursing home (current) use of anticoagulants Category: Medical
== END 2025-01-13 13:43 | disposition home or self-care (01) ==
LOC: HO.ACS 13:22
PROVIDERS: PCP Nurse Practitioner Family; Visit Provider Internal Medicine Medical Oncology
DX: Z79.01 Long term (current) use of anticoagulants (principal)

== ENCOUNTER → 2025-01-13 13:22 | Outpatient (BNVA) | payer MEDICARE, SELFPAY | PROVIDERS: PCP Nurse Practitioner Family; Visit Provider Internal Medicine Medical Oncology | DX: I48.91 Unspecified atrial fibrillation (principal); Z79.01 Long term (current) use of anticoagulants; Z51.81 Encounter for therapeutic drug level monitoring | CPT/HCPCS: 85610; 99211 ==

== ENCOUNTER 2025-01-19 13:34 | Outpatient (AMB) | payer MEDICARE, SELFPAY ==
--- NOTE | 2025-01-19 13:54 | MHC.OFFVISCO ---
Intake Intake Visit Reasons: Anticoagulation Allergies No Known Allergies Allergy (Verified 01/13/25 13:23) Nursing Note INR: 1.9?out of therapeutic range 2-3 Medications and supplements reviewed Patient status: well Medications or supplements: no changes Diet: no changes Denies any signs and symptoms of bleeding or clotting or unusual bruising Bleeding, bruising, clotting discussed Nutritional guidance given: to focus on foods that raise the INR. Food list reviewed. Dose: pt took today's dose of 2mg. Will increase tomorrow's dose to 6mg (4mg) then 2mg X 4 days and 4mg X 3 days (M/W/F) F/U INR Date: 2 weeks?? Patient verbalizing understanding of instructions given. Anti-Coag Initial Assessment Social Hx Patient Tobacco Use Status: Never used Tobacco alcohol intake: current Alcohol intake frequency: a few times a week Cardiovascular Hx: HTN and Arrhythmias Endocrine Hx: Thyroid Disease Musculoskeletal Hx: Arthritis Cancer HX: No (father lung cancer ) Psych. Illness/Depression: No Coding Level of Care Code Est Patient Level 1 Diagnoses Current use of anticoagulant therapy Z79.01 Results AMB INR Fingerstick AMB INR Fingerstick 1.9 Last Edit by Dana Martinez RN on 01/19/25 13:49 interface delay Assessment & Plan Assessment & Plan (1) Current use of anticoagulant therapy: Code(s): Z79.01 - director long term care (current) use of anticoagulants Category: Medical
[2025-01-19 13:57] LABS: Prothrombin Time Whole Bld POC 22.3 sec (11.1-13.5); ~PT, ~INR - Anti Coag Clinic 1.9 (0.9-1.1)
== END 2025-01-19 13:57 | disposition home or self-care (01) ==
LOC: HO.ACS 13:34
PROVIDERS: PCP Nurse Practitioner Family; Visit Provider Internal Medicine Medical Oncology
DX: Z79.01 Long term (current) use of anticoagulants (principal)

== ENCOUNTER → 2025-01-19 13:34 | Outpatient (BNVA) | payer MEDICARE, SELFPAY | PROVIDERS: PCP Nurse Practitioner Family; Visit Provider Internal Medicine Medical Oncology | DX: I48.91 Unspecified atrial fibrillation (principal); Z79.01 Long term (current) use of anticoagulants; Z51.81 Encounter for therapeutic drug level monitoring | CPT/HCPCS: 85610; 99211 ==

== ENCOUNTER 2025-02-02 13:32 | Outpatient (AMB) | payer MEDICARE, SELFPAY ==
[2025-02-02 13:37] LABS: Prothrombin Time Whole Bld POC 26.4 sec (11.1-13.5); ~PT, ~INR - Anti Coag Clinic 2.2 (0.9-1.1)
--- NOTE | 2025-02-02 13:50 | MHC.OFFVISCO ---
Intake Intake Visit Reasons: Anticoagulation Allergies No Known Allergies Allergy (Verified 02/02/25 13:33) Medication List - Last Reconciled 02/02/25 by Dana Martinez, RN amlodipine 5 mg PO DAILY hydrochlorothiazide 25 mg PO DAILY levothyroxine 88 mcg PO DAILY lisinopril 30 mg PO DAILY 90 days metoprolol tartrate 50 mg PO BID warfarin 4 mg See Protocol PO DAILY 30 days Nursing Note INR: 2.2 in therapeutic range of 2-3 Medications and supplements reviewed No changes in health, diet, medications, or supplements, Denies any signs and symptoms of bleeding or bruising or clotting. Bleeding, bruising, clotting discussed Nutritional guidance given Dose: will increase tomorrow's dose to 6mg (4mg) then to resume usual dose of 2mg X 4 days and 4mg X 3 days (Mon/Wed/Fri) F/U INR: 2 weeks Patient verbalizes understanding of instructions given Anti-Coag Initial Assessment Social Hx Patient Tobacco Use Status: Never used Tobacco alcohol intake: current Alcohol intake frequency: a few times a week Cardiovascular Hx: HTN and Arrhythmias Endocrine Hx: Thyroid Disease Musculoskeletal Hx: Arthritis Cancer HX: No (father lung cancer ) Psych. Illness/Depression: No Coding Level of Care Code Est Patient Level 1 Diagnoses Current use of anticoagulant therapy Z79.01 Assessment & Plan Assessment & Plan (1) Current use of anticoagulant therapy: Code(s): Z79.01 - detention (current) use of anticoagulants Category: Medical
== END 2025-02-02 13:52 | disposition home or self-care (01) ==
LOC: HO.ACS 13:32
PROVIDERS: PCP Nurse Practitioner Family; Visit Provider Internal Medicine Medical Oncology
DX: Z79.01 Long term (current) use of anticoagulants (principal)

== ENCOUNTER → 2025-02-02 13:32 | Outpatient (BNVA) | payer MEDICARE, SELFPAY | PROVIDERS: PCP Nurse Practitioner Family; Visit Provider Internal Medicine Medical Oncology | DX: I48.91 Unspecified atrial fibrillation (principal); Z79.01 Long term (current) use of anticoagulants; Z51.81 Encounter for therapeutic drug level monitoring | CPT/HCPCS: 85610; 99211 ==

== ENCOUNTER 2025-02-16 13:27 | Outpatient (AMB) | payer MEDICARE, SELFPAY ==
[2025-02-16 13:52] LABS: Prothrombin Time Whole Bld POC 23.6 sec (11.1-13.5)
--- NOTE | 2025-02-16 13:58 | MHC.OFFVISCO ---
Intake Intake Visit Reasons: Anticoagulation Allergies No Known Allergies Allergy (Verified 02/16/25 13:46) Medication List - Last Reconciled 02/16/25 by Pat Lee RN amlodipine 5 mg PO DAILY hydrochlorothiazide 25 mg PO DAILY levothyroxine 88 mcg PO DAILY lisinopril 30 mg PO DAILY 90 days metoprolol tartrate 50 mg PO BID warfarin 4 mg See Protocol PO DAILY 30 days Nursing Note INR: 2.0 in therapeutic range Medications and supplements reviewed No changes in health, diet, medications, or supplements, Denies any signs and symptoms of bleeding or bruising or clotting. Bleeding, bruising, clotting discussed Nutritional guidance given Dose: 4MG X 3 DAYS/ 2MG X 4 DAYS F/U INR: 3 Weeks per pt request- out of afib for 7 months Patient verbalizes understanding of instructions given Anti-Coag Initial Assessment Social Hx Patient Tobacco Use Status: Never used Tobacco alcohol intake: current Alcohol intake frequency: a few times a week Cardiovascular Hx: HTN and Arrhythmias Endocrine Hx: Thyroid Disease Musculoskeletal Hx: Arthritis Cancer HX: No (father lung cancer ) Psych. Illness/Depression: No Coding Level of Care Code Est Patient Level 1 Diagnoses Current use of anticoagulant therapy Z79.01 Assessment & Plan Assessment & Plan (1) Current use of anticoagulant therapy: Code(s): Z79.01 - halfway (current) use of anticoagulants Category: Medical
== END 2025-02-16 14:00 | disposition home or self-care (01) ==
LOC: HO.ACS 13:27
PROVIDERS: PCP Nurse Practitioner Family; Visit Provider Internal Medicine Medical Oncology
DX: Z79.01 Long term (current) use of anticoagulants (principal)

== ENCOUNTER → 2025-02-16 13:27 | Outpatient (BNVA) | payer MEDICARE, SELFPAY | PROVIDERS: PCP Nurse Practitioner Family; Visit Provider Internal Medicine Medical Oncology | DX: I48.91 Unspecified atrial fibrillation (principal); Z79.01 Long term (current) use of anticoagulants; Z51.81 Encounter for therapeutic drug level monitoring | CPT/HCPCS: 85610; 99211 ==

== ENCOUNTER 2025-03-09 13:49 | Outpatient (AMB) | payer MEDICARE, SELFPAY ==
--- OUTSIDE RECORDS SUMMARY | 2025-03-09 13:52 | XMS_ITS | Patient Health Record ---
Author Organization [facility] Address [address] [place] [id number] Care Team Providers Care Police Officer Name Role Phone Terry Garcia Unavailable [phone] Reason For Referral No Information Plan Of Treatment No Information
[2025-03-09 13:53] LABS: Prothrombin Time Whole Bld POC 33.4 sec (11.1-13.5); ~PT, ~INR - Anti Coag Clinic 2.8 (0.9-1.1)
--- NOTE | 2025-03-09 13:55 | MHC.OFFVISCO ---
Intake Intake Visit Reasons: Anticoagulation Allergies No Known Allergies Allergy (Verified 03/09/25 13:55) Nursing Note NO CP,SOB,DIET/MED CHANGES,FALLS OR SX OF BLEEDING. CONTINUE PRESENT DOSING AND FOLLOW-UP IN 4 WEEKS GOOD UNDERSTANDING OF DOSING INSTR. Anti-Coag Initial Assessment Social Hx Patient Tobacco Use Status: Never used Tobacco alcohol intake: current Alcohol intake frequency: a few times a week Cardiovascular Hx: HTN and Arrhythmias Endocrine Hx: Thyroid Disease Musculoskeletal Hx: Arthritis Cancer HX: No (father lung cancer ) Psych. Illness/Depression: No Coding Level of Care Code Est Patient Level 1 Diagnoses Current use of anticoagulant therapy Z79.01 Assessment & Plan Assessment & Plan (1) Current use of anticoagulant therapy: Code(s): Z79.01 - wellness educator (current) use of anticoagulants Category: Medical
== END 2025-03-09 13:57 | disposition home or self-care (01) ==
LOC: HO.ACS 13:49
PROVIDERS: PCP Nurse Practitioner Family; Visit Provider Internal Medicine Medical Oncology
DX: Z79.01 Long term (current) use of anticoagulants (principal)

== ENCOUNTER → 2025-03-09 13:49 | Outpatient (BNVA) | payer MEDICARE, SELFPAY | PROVIDERS: PCP Nurse Practitioner Family; Visit Provider Internal Medicine Medical Oncology | DX: I48.91 Unspecified atrial fibrillation (principal); Z79.01 Long term (current) use of anticoagulants; Z51.81 Encounter for therapeutic drug level monitoring | CPT/HCPCS: 85610; 99211 ==

== ENCOUNTER 2025-03-22 15:05 | Outpatient (AMB) | payer MEDICARE, SELFPAY ==
--- NOTE | 2025-03-22 15:12 | A.OFFVIS_ITS ---
Vital Signs 03/22/25 15:13 Height 5 ft 6 in Weight 209 lb 7.026 oz BMI 33.8 BP 120/60 Blood Pressure Location Lt brachial Position Sitting Pulse 71 Pulse Source Pulse Oximeter Intake Visit Reasons: 10-12wk f/u/ preop clear ortho Allergies No Known Allergies Allergy (Verified 03/09/25 13:55) Medication List - Last Reconciled 03/22/25 by Prasanna Chand MD amlodipine 5 mg PO DAILY [Folding Front Wheeled walker Duration: 99 days] hydrochlorothiazide 25 mg PO DAILY levothyroxine 88 mcg PO DAILY lisinopril 30 mg PO DAILY 90 days metoprolol tartrate 50 mg PO BID warfarin 4 mg See Protocol PO DAILY 30 days HPI Comments Details: Vipul returns for follow-up. I have seen him in the past but more recently he has been seen by our nurse practitioner. He underwent cardioversion for atrial fibrillation last year. Then he was put on Amiodarone. Then it seems that he had liver/thyroid abnormalities and amiodarone was stopped and then he was sent to EP. He had atrial fibrillation ablation recently. After that, he states he feels well. Otherwise, has a background of hypertension. No known coronary disease or cardiomyopathy. [facility] Medical History History of cardioversion SVT (supraventricular tachycardia) Long COVID Atrial fibrillation HTN (hypertension) Arthritis Surgical History Hx of hand surgery Hx of colonoscopy Hx of right knee surgery Family History Father No problems noted. Mother No problems noted. Social History Household Members: Spouse Housing: House Housing Other:: lives with Alcohol intake: current Alcohol intake frequency: a few times a week Patient Tobacco Use Status: Never used Tobacco e-Cigarette/Vaping Use: Never Used service: No Current occupational status: retired Current occupation: retired Current occupational exposures/hazards: No Cognitive needs: No Hearing needs: No Vision needs: No Review of Systems Const Denies weakness ENT Denies dizziness Card Denies chest pain, Denies chest pain with activity, Denies syncope, Denies rapid heart rate, Denies pedal edema, Denies edema, Denies leg edema, Denies lightheadedness, Denies palpitations, Denies dyspnea, Denies dyspnea on exertion and Denies orthopnea Resp Denies cough, Denies dyspnea and Denies dyspnea on exertion GI Denies hematochezia and Denies change in stool character Musc Denies abnormal gait, Denies muscle cramps, Denies muscle weakness, Denies numbness, Denies radiating pain into limb and Denies tingling Neuro Denies abnormal gait, Denies dizziness, Denies syncope, Denies numbness, Denies tingling and Denies weakness Endo Denies palpitations Physical Exam Vital Signs: Last Vital Signs Pulse 71 03/22/25 15:13 BP 120/60 03/22/25 15:13 BMI result Body Mass Index 33.8 Const General: comfortable and no acute distress Orientation/consciousness: patient oriented x3 HEENT Other: Unremarkable Head: Yes normal to inspection Neck Neck: Yes normal visual inspection Chest Chest palpation & inspection: normal inspection of the chest Resp Auscultation: clear to auscultation bilaterally Cardio Palpation: normal PMI Heart sounds: S1 normal heart sound present, S2 normal heart sound present, no gallops, no murmurs and no rubs GI Palpation (GI): Soft to palpation Back/Spine/Pelvis Other: unremarkable Skin General skin exam: no rashes or lesions noted Neuro General: patient oriented x3 Extrem General: Yes normal to inspection Psych Mental Status: mental status grossly normal Assessment & Plan Assessment & Plan (1) PAF (paroxysmal atrial fibrillation): Code(s): I48.0 - Paroxysmal atrial fibrillation Category: Medical Plan: Status post atrial fibrillation ablation-12/2024. Had tried amiodarone but had elevated liver enzymes/TSH. Continue beta-blockers. On warfarin. Eliquis is too expensive. In sinus rhythm by auscultation. He does not want any EKGs today. (2) Essential hypertension: Code(s): I10 - Essential (primary) hypertension Category: Medical Plan: Stable. Listed to be on amlodipine, hydrochlorothiazide, lisinopril. (3) Preoperative cardiovascular examination: Code(s): Z01.810 - Encounter for preprocedural cardiovascular examination Category: Medical Plan: Plans for knee surgery. Echocardiogram with LVEF of 60% and no significant valvular findings. Myocardial perfusion imaging studies from 2021 and 2023 shows normal perfusion. EKG abnormalities are somewhat chronic and could be from hypertension. May proceed with planned surgery. Low to intermediate cardiac risk. May hold warfarin as required -for the last 3-4 days- without any Lovenox bridging. Resume postprocedure. Plan Discussion Notes I discussed with the patient the importance of continuing metoprolol and warfarin for atrial fibrillation management due to increased risk factors associated with age. We reviewed the upcoming right knee replacement surgery, confirming that cardiac evaluations were normal and cleared him for the procedure. I advised the patient to increase water intake as part of his preventative care. Patient was informed and verbally consented to the use of an ambient scribe for clinic note documentation during this visit. Coding Level of Care Code Est Pt Level 4 (88418) Complex EM visit Add On G2211 Diagnoses PAF (paroxysmal atrial fibrillation) I48.0 Essential hypertension I10 Preoperative cardiovascular examination Z01.810
[2025-03-22 15:13] VITALS: BP 120/60; PULSE 71; BMI 33.8
--- OUTSIDE RECORDS SUMMARY | 2025-03-22 15:37 | XMS_ITS | Patient Health Record ---
Author Organization [facility] Address [address] [place] [id number] Care Team Providers Care Terrazzo Polisher Helper Name Role Phone Terry Garcia Unavailable [phone] Reason For Referral No Information Plan Of Treatment No Information
== END 2025-03-22 15:26 | disposition home or self-care (01) ==
LOC: HO.HCS 15:06
PROVIDERS: PCP Nurse Practitioner Family; Visit Provider Internal Medicine
DX: I48.0 Paroxysmal atrial fibrillation (principal); I10 Essential (primary) hypertension; Z01.810 Encounter for preprocedural cardiovascular examination
CPT/HCPCS: 99214; G2211

== ENCOUNTER → 2025-03-22 15:05 | Outpatient (BNVA) | payer MEDICARE, SELFPAY | PROVIDERS: PCP Nurse Practitioner Family; Visit Provider Internal Medicine | DX: Z01.810 Encounter for preprocedural cardiovascular examination (principal); I48.0 Paroxysmal atrial fibrillation; I10 Essential (primary) hypertension; Z79.01 Long term (current) use of anticoagulants; Z79.890 Hormone replacement therapy; Z79.899 Other long term (current) drug therapy | CPT/HCPCS: 99212 ==

== ENCOUNTER 2025-04-01 07:06 | Outpatient (REF) | payer MEDICARE, SELFPAY ==
--- NOTE | ~2025-04-01 | CT_ITS ---
CLINICAL HISTORY: M21.061 - Valgus deformity, not elsewhere classified, right knee --- Additional Notes or Special Instructions: BIOMET protocol CT right knee without IV contrast. Comparison: DX - XR KNEE LT 3V - 09/21/24 13:47 EST DX - XR KNEE RT 3V - 09/21/24 13:47 EST Findings: Moderate joint space narrowing lateral knee compartment with valgus angulation deformity stable. Tricompartmental enthesophytes. No acute fracture subluxations or dislocations. Chondrocalcinosis. Calcifications of the medial collateral ligament with associated thickening. No acute fracture subluxations or dislocations. No osteochondral lesions or loose bodies demonstrated. Vascular calcifications are extensive. No suprapatellar joint effusion or prepatellar soft tissue swelling. Anterior cruciate ligament is not demonstrated well on CT. Probable Max's cyst can be confirmed with ultrasound or MRI. Impression: 1. Moderate osteoarthritic changes lateral knee compartment with valgus angulation deformity. Tricompartmental enthesophytes. No acute fracture subluxations or dislocations. 2. Chondrocalcinosis. Calcifications and thickening of the medial collateral ligament. Anterior cruciate ligament is not well demonstrated. 3. Noncontrast MRI is recommended for further workup to address the ligaments and menisci This document has been electronically signed by: Luis Enrique Huntley MD on 04/01/2025 10:06:44
== END 2025-04-01 07:07 | disposition home or self-care (01) ==
LOC: HO.CT 07:06
PROVIDERS: PCP Nurse Practitioner Family; Visit Provider Orthopaedic Surgery
DX: M17.11 Unilateral primary osteoarthritis, right knee (principal); M21.061 Valgus deformity, not elsewhere classified, right knee
CPT/HCPCS: 73700

== ENCOUNTER → 2025-04-01 07:15 | Outpatient (BNV) | payer MEDICARE, SELFPAY | PROVIDERS: PCP Nurse Practitioner Family; Visit Provider Radiology Diagnostic Radiology | DX: M17.10 Unilateral primary osteoarthritis, unspecified knee (principal) | CPT/HCPCS: 73700 ==

== ENCOUNTER 2025-04-06 13:29 | Outpatient (AMB) | payer MEDICARE, SELFPAY ==
--- OUTSIDE RECORDS SUMMARY | 2025-04-06 13:31 | XMS_ITS | Patient Health Record ---
Author Organization [facility] Address [address] [place] [id number] Care Team Providers Care Assembler Dry Cell And Battery Name Role Phone Terry Garcia Unavailable [phone] Reason For Referral No Information Plan Of Treatment No Information
[2025-04-06 13:35] LABS: Prothrombin Time Whole Bld POC 26.1 sec (11.1-13.5); ~PT, ~INR - Anti Coag Clinic 2.2 (0.9-1.1)
--- NOTE | 2025-04-06 13:46 | MHC.OFFVISCO ---
Intake Intake Visit Reasons: Anticoagulation Allergies No Known Allergies Allergy (Verified 04/06/25 13:30) Medication List - Last Reconciled 04/06/25 by Pat Lee RN amlodipine 5 mg PO DAILY [Folding Front Wheeled walker Duration: 99 days] hydrochlorothiazide 25 mg PO DAILY levothyroxine 88 mcg PO DAILY lisinopril 30 mg PO DAILY 90 days metoprolol tartrate 50 mg PO BID warfarin 4 mg See Protocol PO DAILY 30 days Nursing Note INR: 2.2 in therapeutic range Medications and supplements reviewed No changes in health, diet, medications, or supplements, Denies any signs and symptoms of bleeding or bruising or clotting. Bleeding, bruising, clotting discussed Nutritional guidance given Dose: 4mg mwf/ 2mg x 4 days F/U INR: 05/02/2025 Msg to PCP, cardiology and ortho will pt require lovenox bridge with his current risk scores Patient verbalizes understanding of instructions given Anti-Coag Initial Assessment Social Hx Patient Tobacco Use Status: Never used Tobacco alcohol intake: current Alcohol intake frequency: a few times a week Cardiovascular Hx: HTN and Arrhythmias Endocrine Hx: Thyroid Disease Musculoskeletal Hx: Arthritis Cancer HX: No (father lung cancer ) Psych. Illness/Depression: No Coding Level of Care Code Est Patient Level 1 Diagnoses Current use of anticoagulant therapy Z79.01 Assessment & Plan Assessment & Plan (1) Current use of anticoagulant therapy: Code(s): Z79.01 - alf (current) use of anticoagulants Category: Medical
== END 2025-04-06 13:49 | disposition home or self-care (01) ==
LOC: HO.ACS 13:29
PROVIDERS: PCP Nurse Practitioner Family; Visit Provider Internal Medicine Medical Oncology
DX: Z79.01 Long term (current) use of anticoagulants (principal)

== ENCOUNTER → 2025-04-06 13:29 | Outpatient (BNVA) | payer MEDICARE, SELFPAY | PROVIDERS: PCP Nurse Practitioner Family; Visit Provider Internal Medicine Medical Oncology | DX: Z79.01 Long term (current) use of anticoagulants (principal) | CPT/HCPCS: 85610; 99211 ==

== ENCOUNTER → 2025-04-11 12:52 | Outpatient (BNVA) | payer MEDICARE, SELFPAY | PROVIDERS: PCP Nurse Practitioner Family | DX: Z01.818 Encounter for other preprocedural examination (principal) ==

== ENCOUNTER → 2025-04-17 11:03 | Outpatient (BNV) | payer MEDICARE, SELFPAY | PROVIDERS: PCP Nurse Practitioner Family; Visit Provider Internal Medicine Cardiovascular Disease | DX: R94.31 Abnormal electrocardiogram [ECG] [EKG] (principal) | CPT/HCPCS: 93010 ==

== ENCOUNTER 2025-04-17 15:59 | Outpatient (AMB) | payer MEDICARE, SELFPAY ==
--- NOTE | 2025-04-17 16:05 | A.OFFPC_ITS ---
Vital Signs 04/17/25 16:08 Height 5 ft 6 in Weight 218 lb BMI 35.2 BP 128/68 Blood Pressure Location Rt brachial Position Sitting Respiration 16 Pulse 73 Pulse Source Pulse Oximeter Temp 98.3 F Temp Source Oral Pulse Oximetry (%) 96 Intake Visit Reasons: Pre Op R TKA w/Dr. Garrett 05/16/25 Contract Management Specialist Required: No Accompanied by: Self / Same As Patient Allergies No Known Allergies Allergy (Verified 04/17/25 16:34) Medication List - Last Reconciled 04/17/25 by ARELI Bowen- amlodipine 5 mg PO QAM [Folding Front Wheeled walker Duration: 99 days] hydrochlorothiazide 25 mg PO QAM levothyroxine 88 mcg PO QAM lisinopril 30 mg PO QAM metoprolol tartrate 50 mg PO QAM metoprolol tartrate 25 mg PO BEDTIME warfarin 4 mg PO DAILY Tobacco use date assessed: 04/17/25 Fall risk assessment: 2 + Falls in past year Last assessed Fall Risk: 04/17/25 Dental Screening Dental Screen Date: 04/17/25 Did you have a dental visit in the last 12 months?: Yes Did you have a dental problem in the last 6 months where you did not have access to dental care?: No Was dental information given to patient?: Patient has dentist HPI Pre Op R TKA armin/Dr. Garrett 05/16/25 HPI Details Chief Complaint The patient presents for a preoperative evaluation for right knee replacement surgery. History of Present Illness The patient is a 74-year-old male presenting with a preoperative evaluation for right knee replacement surgery. He has a history of atrial fibrillation, which has resolved, as indicated by the recent EKG showing sinus rhythm. The patient reports no symptoms of infection such as fever, chills, chest pain, or dyspnea. Pt already has been cleared by cardiology. The patient experiences discomfort in his right knee, which is more severe than in the left knee. He has trace edema in the lower extremities, contributing to his discomfort. Recent laboratory tests revealed an elevated creatinine level, prompting a repeat test to ensure proper hydration before the next evaluation. The patient admits to inadequate hydration prior to the initial test and plans to improve this before the repeat test. Social History Health Maintenance Review of Systems - General: Denies fever, chills - Cardiovascular: Denies chest pain - Respiratory: Denies dyspnea Physical Exam General: Cooperative, healthy appearing, comfortable, no acute distress and well developed Orientation: Patient oriented x3 Limitations: No limitations Head: Normal to inspection Ears: Hearing grossly normal bilaterally Nose: Normal external nose present Face and sinus: Normal facial exam Eyes: Appearance normal, both eyes and all related structures Neck: Normal visual inspection and Yes full ROM, no carotid bruits noted Respiratory: Normal respiratory effort and able to speak in complete sentences. Clear to auscultation bilaterally Cardiovascular: Regular rate and rhythm. Normal S1 and S2 GI: Normal to inspection. Soft to palpation and nontender Skin: No rashes or lesions noted Neuro: Patient oriented x3 Extremities: Trace swelling in lower extremities, uncomfortable to right knee, right greater than the left. Normal to inspection Results - Labs: Elevated creatinine level noted in preoperative labs - EKG: Sinus rhythm replacing atrial fib rillation Plan The patient is scheduled for a right knee replacement surgery on 05/16/2025, and has been cleared by cardiology with a recent EKG showing sinus rhythm. To address the elevated creatinine level, the patient will repeat the lab test after ensuring adequate hydration. The patient is encouraged to maintain hydration to ensure accurate lab results and is otherwise cleared for surgery f rom a medical standpoint. Discussion Notes I discussed with the patient the importance of maintaining hydration to ensure accurate lab results, particularly in light of the elevated creatinine level noted in the preoperative labs. We also reviewed the clearance for surgery from a cardiology perspective, given the resolved atrial fibrillation and current sinus rhythm. Patient Instructions - Ensure adequate hydration before the n ext lab test. - Follow up with the lab results as disc ussed. [facility] Medical History Transfusion of blood product declined due to protestant reason Staph infection Hypothyroid Liver fibrosis History of cardioversion SVT (supraventricular tachycardia) Atrial fibrillation HTN (hypertension) Arthritis Surgical History History of incision and drainage History of cardiac ablation for atrial fibrillation Hx of colonoscopy Hx of right knee surgery Family History Father No problems noted. Mother No problems noted. Social History Household Members: Spouse Housing: House Housing Other:: lives with Are you a primary caretaker grounds to a significant other at home: No Do you presently have visiting nurse or other home services: No Alcohol intake: current Alcohol intake frequency: a few times a week Comment: advised of trip hazard Patient Tobacco Use Status: Never used Tobacco e-Cigarette/Vaping Use: Never Used Advance Directives Date on File: 04/17/25 service: No Current occupational status: retired Current occupation: retired Current occupational exposures/hazards: No Cognitive needs: No Hearing needs: No Vision needs: No Questionnaire Thrive Questionnaire Date Thrive assessed: 12/21/24 I am a: Patient What is your living situation today?: I have a steady place to live Within the past 12 months, did the food you bought not last and you didn't have the money to get more?: Never true Within the past 12 months, did you worry whether your food would run out before you got money to buy more?: Never true Do you have trouble paying for medicines?: No Do you have trouble getting transportation to medical appointments?: No Do you have trouble paying your heating and electricity bill?: No Do you have trouble taking care of your child, family member or friend?: No Do you have trouble with day-to-day activities such as bathing, preparing meals, shopping, managing finances, etc.?: No Are you currently unemployed and looking for a job?: No Are you interested in more education?: No Please select the resources that you would like help with: None Currently or been in a relationship where the following occur: No concerns reported THRIVE Score: 0 GUERA-7 AMB Questionnaire GUERA-7 Date GUERA - 7 assessed: 06/20/24 Source: Developed by Drs. Terry Cline, Shagufta Moreno, John Leo and colleagues, with an educational sandhya from [employer]. Physical exam (Primary Care) Vital Signs: Last Vital Signs Temp 98.3 F 04/17/25 16:08 Pulse 73 04/17/25 16:08 Resp 16 04/17/25 16:08 BP 128/68 04/17/25 16:08 Pulse Ox 96 04/17/25 16:08 BMI result Body Mass Index 35.2 Tobacco/Smoking Status: Tobacco use Status Tobacco use date assessed 04/17/25 04/17/25 16:11 Patient Tobacco Use Status Never used Tobacco 04/17/25 16:06 e-Cigarette/Vaping Use Never Used 04/17/25 16:06 Thrive Assessment: Date of Thrive Assessment Date Thrive assessed 12/21/24 04/17/25 16:06 Currently or been in a relationship where the following occur: No concerns reported Coding Level of Care Code Est Pt Prev Care >65y(08357) Diagnoses Elevated serum creatinine R79.89 Pre-op evaluation Z01.818 Assessment & Plan Assessment & Plan (1) Elevated serum creatinine: Code(s): R79.89 - Other specified abnormal findings of blood chemistry Category: Medical (2) Pre-op evaluation: Code(s): Z01.818 - Encounter for other preprocedural examination Category: Medical Plan . Orders: Orders Comprehensive Met. Panel Today R79.89 - Other specified abnormal findings of blood chemistry Referrals Nephrology Referral R79.89 - Other specified abnormal findings of blood chemistry
[2025-04-17 16:08] VITALS: BP 128/68; PULSE 73; RESP 16; TEMP 36.8; O2SAT 96; BMI 35.2
--- OUTSIDE RECORDS SUMMARY | 2025-04-17 16:16 | XMS_ITS | Patient Health Record ---
Author Organization [facility] Address [address] [place] [id number] Care Team Providers Care Director Of Real Estate Name Role Phone Terry Garcia Unavailable [phone] Reason For Referral No Information Plan Of Treatment No Information
== END 2025-04-17 16:43 | disposition home or self-care (01) ==
LOC: HO.HMCC 16:00
PROVIDERS: PCP Nurse Practitioner Family; Visit Provider Nurse Practitioner Family
DX: R79.89 Other specified abnormal findings of blood chemistry (principal); Z01.818 Encounter for other preprocedural examination; M25.561 Pain in right knee

== ENCOUNTER → 2025-04-17 15:59 | Outpatient (BNVA) | payer MEDICARE, SELFPAY | PROVIDERS: PCP Nurse Practitioner Family; Visit Provider Nurse Practitioner Family | DX: Z01.818 Encounter for other preprocedural examination (principal); R79.89 Other specified abnormal findings of blood chemistry | CPT/HCPCS: 99212 ==

== ENCOUNTER 2025-04-21 09:48 | Outpatient (REF) | payer MEDICARE, SELFPAY ==
--- OUTSIDE RECORDS SUMMARY | 2025-04-19 23:59 | XMS_ITS | Continuity of Care Document ---
Author Organization [facility] Address [address] [place] [id number] Care Team Providers Care Senior Enlisted Advisor Name Role Phone Michelle HEADLEY, Angelo Chamorro Primary Care Physician [phone] Encounter [facility] ACCT R [id number] Date(s): 03/20/25 - 04/19/25 [facility] [address] [place] [phone] Attending Physician: Cruz Peña Admitting Physician: Cruz Peña Referring Physician: AdmtrCruz Encounter Type: Triage Allergies, Adverse Reactions, Alerts [...] Quantity: 30.0 Unit: tablet Repeat number: 1 Problem List Condition Confirmation Course Effective Dates Status Health St atus Informant Obese class I Confirmed Active Patient Care team information Care Team Personnel Name: Angelo Martinez NP Position: Reference Physician Member Role: PCP Address: [address] [place] [address] Telecom: Care Team Related Persons Name: LEXUS SIFUENTES Insurance Providers Guarantor name: ROYAL SIFUENTES Health Plan Information #: 1 Payer: [employer] ADV HMO Payer Identifier: BEL Member Number: [id number] Group Number: [id number] Subscriber Identifier: [id number] Relationship to Subscriber: self Coverage Type: Medicare HMO Coverage Verification Date: NA Telecom: NA Address:
--- OUTSIDE RECORDS SUMMARY | 2025-04-21 09:51 | XMS_ITS | Patient Health Record ---
Author Organization [facility] Address [address] [place] [id number] Care Team Providers Care Auto Vinyl Top Installer Name Role Phone Terry Garcia Unavailable [phone] Reason For Referral No Information Plan Of Treatment No Information
[2025-04-21 15:07] LABS: Alanine Aminotransferase 36 U/L (0-40); Albumin Level 4.1 g/dL (3.5-5.0); Alkaline Phosphatase 65 U/L (39-117); Anion Gap 13 (12-20); Aspartate Amino Transferase 53 U/L (5-37); Blood Urea Nitrogen 24 mg/dL (9-16); Calcium 9.6 mg/dL (8.4-10.2); Carbon Dioxide 26 mmol/L (22-29); Chloride 97 mmol/L (96-108); Estimated Glomerular Filt Rate 49; Potassium 4.1 mmol/L (3.3-5.1); Sodium 132 mmol/L (135-145); Total Protein 7.2 g/dL (6.5-8.0)
== END 2025-04-21 09:49 | disposition home or self-care (01) ==
LOC: HO.HMGCLDS 09:48
PROVIDERS: PCP Nurse Practitioner Family; Visit Provider Nurse Practitioner Family
DX: R79.89 Other specified abnormal findings of blood chemistry (principal)
CPT/HCPCS: 36415; 80053

== ENCOUNTER 2025-05-04 13:00 | Outpatient (AMB) | payer MEDICARE, SELFPAY ==
[2025-05-04 13:09] LABS: Prothrombin Time Whole Bld POC 25.8 sec (11.1-13.5); ~PT, ~INR - Anti Coag Clinic 2.1 (0.9-1.1)
--- NOTE | 2025-05-04 13:25 | MHC.OFFVISCO ---
Intake Intake Visit Reasons: Anticoagulation Allergies No Known Allergies Allergy (Verified 05/04/25 13:01) Medication List - Last Reconciled 05/04/25 by Dana Martinez RN amlodipine 5 mg PO QAM [Folding Front Wheeled walker Duration: 99 days] hydrochlorothiazide 25 mg PO QAM levothyroxine 88 mcg PO QAM lisinopril 30 mg PO QAM metoprolol tartrate 50 mg PO QAM metoprolol tartrate 25 mg PO BEDTIME warfarin 4 mg PO DAILY Nursing Note INR: 2.1 in therapeutic range of 2-3 Pt tyo have Total Right Knee Replacement on 05/16/25 with a 4 day hold of Warfarin. Medications and supplements reviewed No changes in health, diet, medications, or supplements, Denies any signs and symptoms of bleeding or bruising or clotting. Bleeding, bruising, clotting discussed Nutritional guidance given to avoid greens today Dose: will continue usual dose of 2mg X 4 days and 4mg X 3 days (M/W/F) Last dose of warfarin on 05/11/25 prior to surgery. Pt aware. Starting the day after surgery if ok w/ surgeon, pt will take 6mg (usual 4mg) then 4mg (usual 2mg) then his usual dose of 4mg/2mg/2mg. F/U INR: 05/22/25 Patient verbalizes understanding of instructions with read back given Anti-Coag Initial Assessment Social Hx Patient Tobacco Use Status: Never used Tobacco alcohol intake: current Alcohol intake frequency: a few times a week Cardiovascular Hx: HTN and Arrhythmias Endocrine Hx: Thyroid Disease Musculoskeletal Hx: Arthritis Cancer HX: No (father lung cancer ) Psych. Illness/Depression: No Coding Level of Care Code Est Patient Level 1 Diagnoses Current use of anticoagulant therapy Z79.01 Assessment & Plan Assessment & Plan (1) Current use of anticoagulant therapy: Code(s): Z79.01 - exterminator termite (current) use of anticoagulants Category: Medical
--- OUTSIDE RECORDS SUMMARY | 2025-05-04 14:15 | XMS_ITS | Patient Health Record ---
Author Organization [facility] Address [address] [place] [id number] Care Team Providers Care Telephonic Case Manager Name Role Phone Terry Garcia Unavailable [phone] Reason For Referral No Information Plan Of Treatment No Information
== END 2025-05-04 13:33 | disposition home or self-care (01) ==
LOC: HO.ACS 13:00
PROVIDERS: PCP Nurse Practitioner Family; Visit Provider Internal Medicine Medical Oncology
DX: Z79.01 Long term (current) use of anticoagulants (principal)

== ENCOUNTER → 2025-05-04 13:00 | Outpatient (BNVA) | payer MEDICARE, SELFPAY | PROVIDERS: PCP Nurse Practitioner Family; Visit Provider Internal Medicine Medical Oncology | DX: I48.91 Unspecified atrial fibrillation (principal); Z79.01 Long term (current) use of anticoagulants; Z51.81 Encounter for therapeutic drug level monitoring | CPT/HCPCS: 85610; 99211 ==

== ENCOUNTER 2025-05-10 15:50 | Outpatient (REF) | payer MEDICARE, SELFPAY ==
--- OUTSIDE RECORDS SUMMARY | 2025-05-10 18:32 | XMS_ITS | Patient Health Record ---
Author Organization [facility] Address [address] [place] [phone] Care Team Providers Care Cook Cashier Food Prep Name Role Phone Terry Garcia Unavailable [phone] Reason For Referral No Information Plan Of Treatment No Information
== END 2025-05-10 15:51 | disposition home or self-care (01) ==
LOC: HO.HOSX 15:50
PROVIDERS: Visit Provider Physician Assistant
DX: Z13.89 Encounter for screening for other disorder (principal)

== ENCOUNTER 2025-05-11 11:22 | Outpatient (AMB) | payer MEDICARE, SELFPAY ==
--- NOTE | 2025-05-10 12:08 | A.OFFVIS_ITS ---
Vital Signs 05/11/25 11:56 Height 5 ft 6 in Weight 218 lb BMI 35.2 Intake Visit Reasons: Pre-Op: R TKA w/NE 05/16/25 Intake Note: Vipul is a 74 year old male who presents today for a preoperative visit to discuss right TKA, scheduled with Dr. Garrett on 05/16/25. Pain management agreement reviewed and signed. Allergies No Known Allergies Allergy (Verified 05/11/25 11:56) Medication List - Last Reconciled 05/11/25 by Guy Gonzales PA-C amlodipine 5 mg PO QAM [Folding Front Wheeled walker Duration: 99 days] hydrochlorothiazide 25 mg PO QAM levothyroxine 88 mcg PO QAM lisinopril 30 mg PO QAM metoprolol tartrate 50 mg PO QAM metoprolol tartrate 25 mg PO BEDTIME warfarin 4 mg See Protocol PO DAILY HPI Comments Details: Mr Patterson presents to the office today for Orthopedic Pre op clearance. He is scheduled for right total knee arthroplasty with Dr. Garrett on 05/16/2025. He has a significant history of bilateral knee pain with the right being the worse. 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 He currently has difficulty with walking long distances and getting up from a seated position and standing for long periods of time. His quality of life is significantly diminished due to his knee pain and functional limitations. Patient lives at home with his . They live in a 3 level home with 5 steps to enter. He does own a walker. Patient is on Coumadin for AFib. He is status post atrial fibrillation ablation in December of 2024. Ablation was successful. Cardiac clearance obtained on 03/22/[address] Chand: Echocardiogram with LVEF of 60% and no significant valvular findings. Myocardial perfusion imaging studies from 2021 and 2023 shows normal perfusion. EKG abnormalities are somewhat chronic and could be from hypertension. May proceed with planned surgery. Low to intermediate cardiac risk. May hold warfarin as required -for the last 3-4 days- without any Lovenox bridging. Resume postprocedure. Primary care clearance obtained on 04/17/[address] Hardy: Results - Labs: Elevated creatinine level noted in preoperative labs - EKG: Sinus rhythm replacing atrial fibrillation Plan The patient is scheduled for a right knee replacement surgery on 05/16/2025, and has been cleared by cardiology with a recent EKG showing sinus rhythm. To address the elevated creatinine level, the patient will repeat the lab test after ensuring adequate hydration. The patient is encouraged to maintain hydration to ensure accurate lab results and is otherwise cleared for surgery from a medical standpoint. ADDENDUMpt is clear for surgery from my standpoint Addendum Documented By: Angelo Martinez [facility] Medical History Transfusion of blood product declined due to evangelical reason Staph infection Hypothyroid Liver fibrosis History of cardioversion SVT (supraventricular tachycardia) Atrial fibrillation HTN (hypertension) Arthritis Surgical History History of incision and drainage History of cardiac ablation for atrial fibrillation Hx of colonoscopy Hx of right knee surgery Family History Father No problems noted. Mother No problems noted. Social History Household Members: Spouse Housing: House Housing Other:: lives with Are you a primary foster care social worker to a significant other at home: No Do you presently have visiting nurse or other home services: No Alcohol intake: current Alcohol intake frequency: a few times a week Comment: advised of trip hazard Patient Tobacco Use Status: Never used Tobacco e-Cigarette/Vaping Use: Never Used Advance Directives Date on File: 04/17/25 service: No Current occupational status: retired Current occupation: retired Current occupational exposures/hazards: No Cognitive needs: No Hearing needs: No Vision needs: No Review of Systems Const All systems reviewed & are unremarkable except as noted in HPI and below Physical Exam Vital Signs: BMI result Body Mass Index 35.2 Const General: cooperative, healthy appearing, comfortable and no acute distress Orientation/consciousness: patient oriented x3 HEENT Head: Yes normal to inspection and Yes atraumatic Ears: hearing grossly normal bilaterally Eyes General: appearance normal, both eyes and all related structures Neck Neck: Yes normal visual inspection and Yes no lymphadenopathy Resp Effort & Inspection: normal respiratory effort and able to speak in complete sentences Cardio Peripheral pulses: Peripheral pulses 2+ throughout Neuro General: patient oriented x3 Extrem Other: Right knee skin is intact with no open wounds or abrasions. Moderate valgus mal-alignment right knee with lateral compartment ttp + gait antalgia He does have evidence of pitting edema bilateral lower extremities. No venous stasis or ulcerations. Psych Appearance: well kempt Results Reviewed Results Reviewed: X-rays of the right knee obtained in the office today for surgical planning. Assessment & Plan Assessment & Plan (1) Acquired genu valgum of right knee: Code(s): M21.061 - Valgus deformity, not elsewhere classified, right knee Category: Medical (2) Arthritis of right knee: Code(s): M17.11 - Unilateral primary osteoarthritis, right knee Category: Medical Plan Mr Patterson exhausted all conservative measures consisting of lifestyle modifications, physical therapy, analgesics, corticosteroid injections and use of assisted devices and continues to have significant limitations in daily activities along with decreased quality of life. Given the patient's desire to improve their quality of life, surgical intervention consisting of joint replacement surgery is recommended at this time.? We discussed the procedure in detail today; which includes pre op preparation with labs and reviewing patients medication regimen prior to surgery. Patient will hold his Coumadin 4 days preop. He was instructed to obtain labs prior to surgery which include a CBC and type and screen I discussed at length the post op course which includes physical therapy services in the hospital along with the discharge routine and the patients plan upon discharge. The patient would like to be discharged home with VNA services. I explained to the patient, once they are DC home, they will receive VNA services which will include PT 2-3x per week. We also discussed their choice for outpatient PT once they are discharged from home PT. The patient would like to attend core Physical therapy in [place]. An order was placed and he will contact them to make an appointment. Post op DVT ppx was also discussed and the considering the patients history of AFib on Coumadin he will begin Lovenox 23 hours postoperatively. His Coumadin will resume the night of surgery until he reaches therapeutic goal of 2-3, then we can discontinue his Lovenox. I reviewed with the patient their post op pain medication regimen along with the detailed wean program. The patient did express understanding of this and agreed to the narcotic policy. Lastly, I discussed with the patient the risks to the procedure. Risks including but not limited to infection, injury to surrounding nerves, tissue , bone, small and large vessels, stiffness, aseptic loosening, fracture, dislocation, amputation, DVT/PE along with intraoperative complications including but not limited to . The patient does express understanding, all questions were answered and the patient would like to proceed? with right total knee arthroplasty with Dr. Garrett. Consents were signed and dated while in the office today.? Post-Operative Recovery Notes: * DVT ppx : Begin Coumadin the night of surgery, Lovenox 23 hours postop. Once Coumadin reaches therapeutic level of 2-3, discontinue Lovenox * Hospital DC plan: Home with VNA * Physical Therapy: Keren tate * Walker obtained Orders: Orders XR knee RT 3V Today M17.11 - Unilateral primary osteoarthritis, right knee PT Evaluation and Treatment Today Z96.651 - Presence of right artificial knee joint Type and Screen 25 Days Z01.818 - Encounter for other preprocedural examination Coding Level of Care Code Est Pt Level 4 (60340) Complex EM visit Add On G2211 Diagnoses Acquired genu valgum of right knee M21.061 Arthritis of right knee M17.11
[2025-05-11 11:56] VITALS: BMI 35.2
--- OUTSIDE RECORDS SUMMARY | 2025-05-11 15:41 | XMS_ITS | Patient Health Record ---
Author Organization [facility] Address [address] [place] [phone] Care Team Providers Care Sales And Marketing Manager Name Role Phone Terry Garcia Unavailable [phone] Reason For Referral No Information Plan Of Treatment No Information
== END 2025-05-11 12:17 | disposition home or self-care (01) ==
LOC: HO.HOS 11:23
PROVIDERS: PCP Nurse Practitioner Family; Visit Provider Physician Assistant
DX: M21.061 Valgus deformity, not elsewhere classified, right knee (principal); M17.11 Unilateral primary osteoarthritis, right knee
CPT/HCPCS: 99214; G2211

== ENCOUNTER 2025-05-11 11:22 | Outpatient (REF) | payer MEDICARE, SELFPAY ==
--- NOTE | ~2025-05-11 | XR_ITS ---
EXAMINATION: XR KNEE 3 VIEWS RIGHT HISTORY: M17.11 - Unilateral primary osteoarthritis, right knee COMPARISON: Comparison is made with the prior examination dated 09/21/2024. FINDINGS: Standing AP views of both knees and additional lateral and sunrise patellar views of the right knee are submitted. Osseous mineralization is normal. There is no fracture or dislocation. There is moderate osteoarthritis of the lateral compartment of the right knee with joint space narrowing. Milder changes are noted involving the patellofemoral compartment. The soft tissues are unremarkable. There is no joint effusion. XR/XR knee RT 3V IMPRESSION: Osteoarthritis of the right knee as described. Electronically signed by: Terry Maria MD 05/11/2025 12:43 PM EDT
== END 2025-05-11 11:23 | disposition home or self-care (01) ==
LOC: HO.HOSX 11:22
PROVIDERS: PCP Nurse Practitioner Family; Visit Provider Physician Assistant
DX: Z01.818 Encounter for other preprocedural examination (principal); M17.11 Unilateral primary osteoarthritis, right knee; M21.061 Valgus deformity, not elsewhere classified, right knee; Z96.651 Presence of right artificial knee joint
CPT/HCPCS: 73562; 99212

== ENCOUNTER → 2025-05-11 11:48 | Outpatient (BNV) | payer MEDICARE, SELFPAY | PROVIDERS: PCP Nurse Practitioner Family; Visit Provider Radiology Diagnostic Radiology | DX: M17.11 Unilateral primary osteoarthritis, right knee (principal) | CPT/HCPCS: 73562 ==

== ENCOUNTER 2025-05-12 10:12 | Outpatient (REF) | payer MEDICARE, SELFPAY ==
--- NOTE | ~2025-05-12 | CT_ITS ---
EXAMINATION: CT KNEE WITHOUT CONTRAST, RIGHT CLINICAL INFORMATION: Valgus deformity COMPARISON: None available. TECHNIQUE: Axial CT imaging was performed through the right hip, right knee, and right ankle joint. ALARA: The examination used one or more of the following radiation dose reduction techniques: Automated exposure control, iterative reconstruction, and/or adjustment of mA and/or KV. DLP: 551 mGy*cm FINDINGS: RIGHT HIP: Right hip joint demonstrates marginal osteophytes involving the acetabular roof, fovea, and minimally at the femoral head. There is minimal axial joint space narrowing. There is an enthesophyte at the greater trochanter. There are moderate atherosclerotic calcifications. Right knee: There is moderate chondral calcinosis involving articular cartilage of patella, femur, and tibial plateau, both medial and lateral compartment. There is also pyrophosphate deposition in the medial lateral meniscus and in the joint capsule structures/synovium, particularly lateral to the femoral condyle. There is severe narrowing of the anterior aspect of the lateral compartment There is no joint effusion. However, there is a moderate-sized Max's cyst. There is moderate arterial vascular calcifications. There is superficial soft tissue edema. Right ankle: There are moderate atherosclerotic calcifications. No osteochondral lesions are noted in the talar dome. There is minimal chondrocalcinosis involving posterior lateral talar dome. Anterior talofibular ligament is not well demonstrated and thin likely from prior partial tear. CT/CT knee RT wo IV con IMPRESSION: Moderate atherosclerotic disease. 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 Moderate secondary osteoarthritis of the right knee joint. Moderate-sized Max's cyst. 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 Electronically signed by: Jose Maria Khan MD 05/12/2025 11:20 AM EDT
--- OUTSIDE RECORDS SUMMARY | 2025-05-12 11:37 | XMS_ITS | Patient Health Record ---
Author Organization [facility] Address [address] [place] [phone] Care Team Providers Care Disintegrator Feeder Name Role Phone Terry Garcia Unavailable [phone] Reason For Referral No Information Plan Of Treatment No Information
== END 2025-05-12 10:13 | disposition home or self-care (01) ==
LOC: HO.CT 10:12
PROVIDERS: PCP Nurse Practitioner Family; Visit Provider Orthopaedic Surgery
DX: R74.8 Abnormal levels of other serum enzymes (principal)
CPT/HCPCS: 73700

== ENCOUNTER → 2025-05-12 10:31 | Outpatient (BNV) | payer MEDICARE, SELFPAY | PROVIDERS: PCP Nurse Practitioner Family; Visit Provider Radiology Diagnostic Radiology | DX: M11.261 Other chondrocalcinosis, right knee (principal); M24.271 Disorder of ligament, right ankle | CPT/HCPCS: 73700 ==

== ENCOUNTER 2025-05-18 07:28 | Outpatient (REF) | payer MEDICARE, SELFPAY ==
--- OUTSIDE RECORDS SUMMARY | 2025-05-18 07:33 | XMS_ITS | Patient Health Record ---
Author Organization [facility] [place] Address [address] [place] [id number] Care Team Providers Care Trim Stencil Maker Name Role Phone Terry Garcia Unavailable [phone] Reason For Referral No Information Plan Of Treatment No Information
[2025-05-18 08:25] LABS: MANUAL DIFF FLAG NO
[2025-05-18 08:58] LABS: Hematocrit 39.3 % (42.0-52.0); Hemoglobin 13.6 g/dl (14.0-18.0); Imm Gran Abs Auto 0.03 X10*3/uL (0.00-0.03); Imm Gran Pct Auto 0.7 % (0.0-0.4); Lymphocytes Absolute Auto 1.3 X10*3/uL (1.2-4.9); Mean Corpuscular HGB Conc 34.6 g/dl (31.0-36.0); Mean Corpuscular Hemoglobin 32.5 pg (27.0-33.0); Mean Corpuscular Volume 93.8 fL (80.0-98.0); NRBC Abs Auto 0.000 X10*3/uL (0.0-0.012); NRBC Pct Auto 0.0 /100WBC (0.0-0.2); Platelet Count 227 X10*3/uL (160-400); Red Blood Count 4.19 X10*6/uL (4.60-5.80); White Blood Count 4.3 X10*3/uL (4.8-10.8)
[2025-05-18 11:46] LABS: Free T4 (Free Thyroxine) 1.07 ng/dL (0.71-1.85)
[2025-05-27 17:48] LABS: FIB-ALT 22 U/L (9-46); FIB-Alpha-2-Macroglobulin 280 mg/dL (106-279); FIB-Apolipoprotein A1 172 mg/dL (94-176); FIB-GGT 61 U/L (3-70); FIB-Haptoglobin 188 mg/dL (43-212); FIB-Total Bilirubin 0.4 mg/dL (0.2-1.2); Liver Fibrosis Score 0.44; Liver Fibrosis Stage F1-F2; Nec Inflam Act Grade A0; Nec Inflam Act Score 0.11
== END 2025-05-18 07:29 | disposition home or self-care (01) ==
LOC: HO.HMGCLDS 07:28
PROVIDERS: PCP Nurse Practitioner Family; Referring Provider Physician Assistant; Visit Provider Nurse Practitioner Family
DX: Z01.818 Encounter for other preprocedural examination (principal); Z13.29 Encounter for screening for other suspected endocrine disorder; R74.8 Abnormal levels of other serum enzymes; R79.89 Other specified abnormal findings of blood chemistry
CPT/HCPCS: 36415; 81596; 84439; 84443; 85025

== ENCOUNTER → 2025-05-24 06:48 | Day surgery (SDC) | payer MEDICARE, SELFPAY ==
--- NOTE | 2025-04-17 | ECG_ITS ---
Test Reason : PREOP Blood Pressure : */* mmHG Vent. Rate : 64 BPM Atrial Rate : 64 BPM P-R Int : 186 ms QRS Dur : 88 ms QT Int : 418 ms P-R-T Axes : 48 40 226 degrees QTcB Int : 431 ms Normal sinus rhythm T wave abnormality, consider lateral ischemia Abnormal ECG When compared with ECG of 27-Jul-2024 10:41, Sinus rhythm has replaced Atrial fibrillation Referred By: Annabel Garcia Electronically Signed By: CHUNG MC MD
[2025-04-17 10:21] VITALS: BP 150/80; PULSE 64; RESP 20; O2SAT 97; BMI 32.4
--- NOTE | 2025-04-17 10:37 | HO.ANESPROP2 ---
Documented by User: Annabel Garcia NP 05/22/25 11:33 HPI - Anesthesia Eval Consult details Narrative: 74 yr old male for right knee replacement scheduled for 05/24/25 seen in [facility] No recent illness No CP/SOB with lawn mowing, stair climbing at home. Cardiac clearance 02/2025: -May proceed with planned surgery. Low to intermediate cardiac risk. -EKG changes are somewhat chronic, may be 2/2 HTN. -May hold warfarin as required -for the last 3-4 days- without any Lovenox bridging, Resume postprocedure. 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) Arthritis of right knee (Acute) Acquired genu valgum of right knee (Acute) Current use of anticoagulant therapy (Acute) On amiodarone therapy (Acute) Osteoarthritis of knees, bilateral (Acute) Bilateral knee pain (Acute) Persistent atrial fibrillation (Acute) Shortness of breath (Acute) Early satiety (Acute) New onset a-fib (Acute) Edema (Acute) Elevated ferritin (Chronic) Elevated TSH (Acute) Fatigue (Acute) Long COVID (Acute) Cough (Acute) Elevated serum creatinine (Acute) Elevated liver enzymes (Acute) Facial skin lesion (Acute) Essential hypertension (Acute) Atrial arrhythmia (Acute) Uncontrolled hypertension (Acute) Preoperative cardiovascular examination (Acute) Precordial chest pain (Acute) SVT (supraventricular tachycardia) (Acute) Elevated BP without diagnosis of hypertension (Acute) Abnormal EKG (Acute) Irregular heart rhythm (Acute) Screening for prostate cancer (Acute) Physical exam (Acute) Screening for colon cancer (Acute) Atrial fibrillation (Acute) Past Medical History Medical History Transfusion of blood product declined due to gnosticism reason Staph infection Hypothyroid Liver fibrosis History of cardioversion SVT (supraventricular tachycardia) Atrial fibrillation HTN (hypertension) Arthritis Family History Family History Father No problems noted. Mother No problems noted. Family history of problems with anesthesia: No Surgical History Surgical History History of incision and drainage History of cardiac ablation for atrial fibrillation Hx of colonoscopy Hx of right knee surgery History of Problems with Anesthesia: No Social History Social History Household Members: Spouse Housing: House Housing Other:: lives with Are you a primary home care companion to a significant other at home: No Do you presently have visiting nurse or other home services: No Alcohol intake: current Alcohol intake frequency: a few times a week Comment: advised of trip hazard Patient Tobacco Use Status: Never used Tobacco e-Cigarette/Vaping Use: Never Used Use of substances other than those prescribed or required for medical reasons: No Have you been hit, kicked, punched, or otherwise hurt by someone within the past year? If so, by whom?: No Spiritual Healthcare Practices: no Bahai Healthcare Practices: Cecilia Witness-refuses blood products Cultural Healthcare Practices: no Are you DNR?: No Advance Directives: Yes Advance Directives Information Provided: Yes Advance Directives on File: Yes Advance Directives Date on File: 04/17/25 Poor oral hygiene: No ([id number] note 2 upper front crowns) service: No Current occupational status: retired Current occupation: retired Current occupational exposures/hazards: No Cognitive needs: No Hearing needs: No Vision needs: No Meds Allergies Allergy/AdvReac Type Severity Reaction Status Date / Time No Known Allergies Allergy Verified 05/11/25 11:56 Home Medications ?Medication ?Instructions ?Recorded ?Confirmed ?Last Taken ?Type amlodipine 5 mg tablet 5 mg PO QAM 04/17/25 05/11/25 Unknown History lisinopril 30 mg tablet 30 mg PO QAM 04/17/25 05/24/25 05/23/25 08:00 History metoprolol tartrate 25 mg tablet 25 mg PO BEDTIME 04/17/25 05/24/25 05/23/25 20:00 History metoprolol tartrate 50 mg tablet 50 mg PO QAM 04/17/25 05/24/2525 06:00 History Exam Height,Weight and Vital Signs: Height 5 ft 9 in Weight 99.5 kg Last Vital Signs Pulse 64 04/17/25 10:21 Resp 20 04/17/25 10:21 BP 150/80 H 04/17/25 10:21 Pulse Ox 97 04/17/25 10:21 O2 Del Method Room Air 04/17/25 10:21 Pertinent Lab Results Pertinent Lab Results: Laboratory Tests 04/17/25 11:14 WBC 6.5 RBC 4.53 L Hgb 14.7 Hct 42.4 Plt Count 212 Sodium 136 Potassium 4.6 BUN 33 H Creatinine 1.75 H Narrative Narrative: Echocardiogram 05/2024 Conclusions: - The left ventricular systolic function is normal. The calculated ejection fraction is 62% by biplane method. - No obvious valvular pathology seen on this study. Myocardial perfusion imaging studies from 2021 and 2023 shows normal perfusion. EKG 04/17/25 Vent. Rate : 64 BPM Atrial Rate : 64 BPM P-R Int : 186 ms QRS Dur : 88 ms QT Int : 418 ms P-R-T Axes : 48 40 226 degrees QTcB Int : 431 ms Normal sinus rhythm T wave abnormality, consider lateral ischemia Abnormal ECG When compared with ECG of 27-Jul-2024 10:41, Sinus rhythm has replaced Atrial fibrillation Airway Mallampati Class: II TM Dist: >3cm Neck ROM: Full Loose/Missing/Broken Teeth: No and Upper ([place] 9) Heart: RRR Lungs: CTAB Assessment and Plan Final Anesthetic Review Family History of Problems with Anesthesia: No History of Problems with Anesthesia: No Documented by User: Heidi Pineda MD 05/24/25 09:25 [facility] Past Medical History Medical History Transfusion of blood product declined due to gnosticism reason Staph infection Hypothyroid Liver fibrosis History of cardioversion SVT (supraventricular tachycardia) Atrial fibrillation HTN (hypertension) Arthritis Family History Family History Father No problems noted. Mother No problems noted. Surgical History Surgical History History of incision and drainage History of cardiac ablation for atrial fibrillation Hx of colonoscopy Hx of right knee surgery Social History Social History Household Members: Spouse Housing: House Housing Other:: lives with Are you a primary home care companion to a significant other at home: No Do you presently have visiting nurse or other home services: No Alcohol intake: current Alcohol intake frequency: a few times a week Comment: advised of trip hazard Patient Tobacco Use Status: Never used Tobacco e-Cigarette/Vaping Use: Never Used Use of substances other than those prescribed or required for medical reasons: No Have you been hit, kicked, punched, or otherwise hurt by someone within the past year? If so, by whom?: No Spiritual Healthcare Practices: no Bahai Healthcare Practices: Cecilia Witness-refuses blood products Cultural Healthcare Practices: no Are you DNR?: No Advance Directives: Yes Advance Directives Information Provided: Yes Advance Directives on File: Yes Advance Directives Date on File: 04/17/25 Poor oral hygiene: No ([id number] note 2 upper front crowns) service: No Current occupational status: retired Current occupation: retired Current occupational exposures/hazards: No Cognitive needs: No Hearing needs: No Vision needs: No Meds Allergies Allergy/AdvReac Type Severity Reaction Status Date / Time No Known Allergies Allergy Verified 05/11/25 11:56 Home Medications ?Medication ?Instructions ?Recorded ?Confirmed ?Last Taken ?Type amlodipine 5 mg tablet 5 mg PO QAM 04/17/25 05/11/25 Unknown History lisinopril 30 mg tablet 30 mg PO QAM 04/17/25 05/24/25 05/23/25 08:00 History metoprolol tartrate 25 mg tablet 25 mg PO BEDTIME 04/17/25 05/24/25 05/23/25 20:00 History metoprolol tartrate 50 mg tablet 50 mg PO QAM 04/17/25 05/24/2505/24/25 06:00 History Assessment and Plan Assessment Anesthesia Assessment: Anesthesia Plan Discussed and Chart Reviewed Final Anesthetic Review NPO: Yes ASA Class: III Final Preanesthetic Review: No Changes in Pt Med Stat, Meds/Allgs Chart Reviewed, Consent Obtained/Reviewed and Anes Risks/Benef Reviewed Patient Risk: Intermediate Procedure Risk: Intermediate Anesthetic Plan Anesthetic Plan: GA (inr 1.7), Regional Block and Agree w/ Assess. and Plan Disposition: Standard PACU
[2025-04-17 11:45] LABS: Hematocrit 42.4 % (42.0-52.0); Hemoglobin 14.7 g/dl (14.0-18.0); Mean Corpuscular HGB Conc 34.7 g/dl (31.0-36.0); Mean Corpuscular Hemoglobin 32.5 pg (27.0-33.0); Mean Corpuscular Volume 93.6 fL (80.0-98.0); NRBC Abs Auto 0.000 X10*3/uL (0.0-0.012); NRBC Pct Auto 0.0 /100WBC (0.0-0.2); Platelet Count 212 X10*3/uL (160-400); Red Blood Count 4.53 X10*6/uL (4.60-5.80); White Blood Count 6.5 X10*3/uL (4.8-10.8)
[2025-04-17 12:19] LABS: Anion Gap 14 (12-20); Blood Urea Nitrogen 33 mg/dL (9-16); Calcium 9.2 mg/dL (8.4-10.2); Carbon Dioxide 26 mmol/L (22-29); Chloride 101 mmol/L (96-108); Creatinine Clr Calc Pharmacy 41.7; Estimated Glomerular Filt Rate 38; Potassium 4.6 mmol/L (3.3-5.1); Sodium 136 mmol/L (135-145)
[2025-04-17 12:38] LABS: MRSA Nasal PCR NEGATIVE (Negative); SA Nasal PCR NEGATIVE (Negative)
[2025-05-24 07:07] VITALS: BMI 32.5
--- NOTE | 2025-05-24 07:28 | MHC.SHP ---
Pre-Procedural Eval Section A - 24 Hr Update-Section A only Date of Service: 05/24/25 The patient is an INPATIENT: No Changes since office visit: No Cold of Flu in the past 2 weeks, No New Medical Problems, No Changes in Medication and No Patient answered all questions The patient has been examined within 24 hours of the surgical procedure. The History & Physical has been completed within 30 days and I have reviewed it.: Yes Section B - Complete if H&P > 30 days Chief Complaint: Valgus deformity,Unilateral primary osteoarthritis Allergies: Allergies Allergy/AdvReac Type Severity Reaction Status Date / Time No Known Allergies Allergy Verified 05/11/25 11:56 Plan I have reviewed the history and physical and performed a pertinent physical examination on my patient. No changes have occurred unless specified. Time Spent With Patient Time: Total time managing care of this patient today ____ minutes.
[2025-05-24 07:31] VITALS: BP 139/84; PULSE 66; RESP 16; TEMP 37.2; O2SAT 96
[2025-05-24] MEDS: Lactated Ringers 1,000 ML 100 ML IVCONT (07:35)
[2025-05-24 08:03] LABS: Hematocrit 38.6 % (42.0-52.0); Hemoglobin 13.3 g/dl (14.0-18.0)
[2025-05-24 08:05] LABS: INTERNATIONAL NORM RATIO 1.6 (0.9-1.1); Prothrombin Time 18.8 SEC (10.9-12.4)
[2025-05-24 08:08] LABS: Partial Thromboplastin Time 34.8 SEC (26.7-34.1)
--- NOTE | 2025-05-24 10:29 | PC.NURSE ---
Case canceled due to high INR. IV removed and pt to get dressed
== END ==
LOC: HO.SSS 06:48
PROVIDERS: Nurse Practitioner; Physician Assistant; PCP Nurse Practitioner Family; Visit Provider Orthopaedic Surgery
DX: M21.061 Valgus deformity, not elsewhere classified, right knee (principal); Z53.09 Procedure and treatment not carried out because of other contraindication; R79.1 Abnormal coagulation profile; M17.11 Unilateral primary osteoarthritis, right knee
CPT/HCPCS: 36415; 80048; 85014; 85018; 85027; 85610; 85730; 87640; 87641; 93005; J0131; J0665; J0690; J1100; J2004; J2704; J3010

== ENCOUNTER 2025-05-30 08:52 | Day surgery (SDC) | payer MEDICARE, SELFPAY ==
--- OUTSIDE RECORDS SUMMARY | 2025-05-24 13:55 | XMS_ITS | Patient Health Record ---
Author Organization [facility] Address [address] [place] [id number] Care Team Providers Care Payroll Services Analyst Name Role Phone Terry Garcia Unavailable [phone] Reason For Referral No Information Plan Of Treatment No Information
[2025-05-30] VITALS (7 sets, daily range): BP systolic 104–149; BP diastolic 49–86; PULSE 53–81; RESP 14–21; TEMP 36.2–37.2; O2SAT 94–100; BMI 32.0; BMI 34.1
--- NOTE | ~2025-05-30 | XR_ITS ---
EXAMINATION: XR KNEE, RIGHT CLINICAL INFORMATION: rt tka COMPARISON: None available. TECHNIQUE: AP and lateral views of the right knee. FINDINGS: Prosthetic components of the total knee arthroplasty are appropriately aligned. No periprosthetic fracture. Gas from recent surgery is present in the joint and surrounding soft tissues. A joint effusion with gas is present. XR/XR knee RT 2V IMPRESSION: Unremarkable immediately post total knee arthroplasty on the right. Electronically signed by: Jose Maria Khan MD 05/30/2025 04:39 PM EDT
[2025-05-30] MEDS: Lactated Ringers 1,000 ML 100 ML IVCONT ×2 (10:08→18:14)
--- NOTE | 2025-05-30 10:35 | MHC.SHP ---
Pre-Procedural Eval Section A - 24 Hr Update-Section A only Date of Service: 05/30/25 The patient is an INPATIENT: No Changes since office visit: No Cold of Flu in the past 2 weeks, No New Medical Problems, No Changes in Medication and No Patient answered all questions The patient has been examined within 24 hours of the surgical procedure. The History & Physical has been completed within 30 days and I have reviewed it.: Yes Section B - Complete if H&P > 30 days Chief Complaint: Valgus deformity, not elsewhere classified, Allergies: Allergies Allergy/AdvReac Type Severity Reaction Status Date / Time No Known Allergies Allergy Verified 05/30/25 09:52 Plan I have reviewed the history and physical and performed a pertinent physical examination on my patient. No changes have occurred unless specified. Time Spent With Patient Time: Total time managing care of this patient today ____ minutes.
[2025-05-30 10:45] LABS: INTERNATIONAL NORM RATIO 1.2 (0.9-1.1); Prothrombin Time 13.4 SEC (10.9-12.4)
--- NOTE | 2025-05-30 11:21 | HO.ANESPROP2 ---
Documented by User: Linda Sampson NP 05/26/25 10:18 HPI - Anesthesia Eval Consult details Narrative: 74 yr old male for right knee replacement scheduled for 05/24/25 seen in PAT Cx'd previously for elevated INR No recent illness No CP/SOB with lawn mowing, stair climbing at home. Cardiac clearance 02/2025: -May proceed with planned surgery. Low to intermediate cardiac risk. -EKG changes are somewhat chronic, may be 2/2 HTN. -May hold warfarin as required -for the last 3-4 days- without any Lovenox bridging, Resume postprocedure. 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) Arthritis of right knee (Acute) Acquired genu valgum of right knee (Acute) Current use of anticoagulant therapy (Acute) On amiodarone therapy (Acute) Osteoarthritis of knees, bilateral (Acute) Bilateral knee pain (Acute) Persistent atrial fibrillation (Acute) Shortness of breath (Acute) Early satiety (Acute) New onset a-fib (Acute) Edema (Acute) Elevated ferritin (Chronic) Elevated TSH (Acute) Fatigue (Acute) Long COVID (Acute) Cough (Acute) Elevated serum creatinine (Acute) Elevated liver enzymes (Acute) Facial skin lesion (Acute) Essential hypertension (Acute) Atrial arrhythmia (Acute) Uncontrolled hypertension (Acute) Preoperative cardiovascular examination (Acute) Precordial chest pain (Acute) SVT (supraventricular tachycardia) (Acute) Elevated BP without diagnosis of hypertension (Acute) Abnormal EKG (Acute) Irregular heart rhythm (Acute) Screening for prostate cancer (Acute) Physical exam (Acute) Screening for colon cancer (Acute) Atrial fibrillation (Acute) Past Medical History Medical History Transfusion of blood product declined due to [employer] reason Staph infection Hypothyroid Liver fibrosis History of cardioversion SVT (supraventricular tachycardia) Atrial fibrillation HTN (hypertension) Arthritis Family History Family History Father No problems noted. Mother No problems noted. Family history of problems with anesthesia: No Surgical History Surgical History History of incision and drainage History of cardiac ablation for atrial fibrillation Hx of colonoscopy Hx of right knee surgery History of Problems with Anesthesia: No Social History Social History Household Members: Spouse Housing: House Housing Other:: lives with Are you a primary associate director career services to a significant other at home: No Do you presently have visiting nurse or other home services: No Alcohol intake: current Alcohol intake frequency: a few times a week Comment: advised of trip hazard Patient Tobacco Use Status: Never used Tobacco e-Cigarette/Vaping Use: Never Used Advance Directives Date on File: 04/17/25 service: No Current occupational status: retired Current occupation: retired Current occupational exposures/hazards: No Cognitive needs: No Hearing needs: No Vision needs: No Meds Allergies Allergy/AdvReac Type Severity Reaction Status Date / Time No Known Allergies Allergy Verified 05/30/25 09:52 Home Medications ?Medication ?Instructions ?Recorded ?Confirmed ?Last Taken ?Type amlodipine 5 mg tablet 5 mg PO QAM 04/17/25 05/30/25 05/30/25 07:00 History lisinopril 30 mg tablet 30 mg PO QAM 04/17/25 05/30/25 05/29/25 History metoprolol tartrate 25 mg tablet 25 mg PO BEDTIME 04/17/25 05/30/25 05/29/25 History metoprolol tartrate 50 mg tablet 50 mg PO QAM 04/17/25 05/30/25 05/30/25 07:00 History Exam Height,Weight and Vital Signs: Height 5 ft 9 in Weight 99.5 kg Last Vital Signs Pulse 64 04/17/25 10:21 Resp 20 04/17/25 10:21 BP 150/80 H 04/17/25 10:21 Pulse Ox 97 04/17/25 10:21 O2 Del Method Room Air 04/17/25 10:21 Pertinent Lab Results Pertinent Lab Results: Laboratory Tests 04/17/25 11:14 WBC 6.5 RBC 4.53 L Hgb 14.7 Hct 42.4 Plt Count 212 Sodium 136 Potassium 4.6 BUN 33 H Creatinine 1.75 H Narrative Narrative: Echocardiogram 05/2024 Conclusions: - The left ventricular systolic function is normal. The calculated ejection fraction is 62% by biplane method. - No obvious valvular pathology seen on this study. Myocardial perfusion imaging studies from 2021 and 2023 shows normal perfusion. EKG 04/17/25 Vent. Rate : 64 BPM Atrial Rate : 64 BPM P-R Int : 186 ms QRS Dur : 88 ms QT Int : 418 ms P-R-T Axes : 48 40 226 degrees QTcB Int : 431 ms Normal sinus rhythm T wave abnormality, consider lateral ischemia Abnormal ECG When compared with ECG of 27-Jul-2024 10:41, Sinus rhythm has replaced Atrial fibrillation Airway Mallampati Class: II TM Dist: >3cm Neck ROM: Full Loose/Missing/Broken Teeth: No and Upper ([place] 9) Heart: RRR Lungs: CTAB Assessment and Plan Assessment Anesthesia Assessment: Chart Reviewed Final Anesthetic Review Family History of Problems with Anesthesia: No History of Problems with Anesthesia: No Documented by User: Harika Lala DO 05/30/25 11:23 HPI - Anesthesia Eval Consult details Narrative: 74 yr old male for right knee replacement scheduled for 05/24/25 seen in PAT Essence'd previously for elevated INR. Today, INR is 1.2. No recent illness No CP/SOB with lawn mowing, stair climbing at home. Cardiac clearance 02/2025: -May proceed with planned surgery. Low to intermediate cardiac risk. -EKG changes are somewhat chronic, may be 2/2 HTN. -May hold warfarin as required -for the last 3-4 days- without any Lovenox bridging, Resume postprocedure. Medically optimized by PCP 04/17/25 visit pending repeat creat lab, elevated on 04/17/25 preop labs at creat 1.75 s/p cardiac ablation 11/2024 at [facility] [place], tolerated anesthesia well Refuses blood products due to jainism PMFSH Past Medical History Medical History Transfusion of blood product declined due to [employer] reason Staph infection Hypothyroid Liver fibrosis History of cardioversion SVT (supraventricular tachycardia) Atrial fibrillation HTN (hypertension) Arthritis Family History Family History Father No problems noted. Mother No problems noted. Family history of problems with anesthesia: No Surgical History Surgical History History of incision and drainage History of cardiac ablation for atrial fibrillation Hx of colonoscopy Hx of right knee surgery History of Problems with Anesthesia: No Social History Social History Household Members: Spouse Housing: House Housing Other:: lives with Are you a primary associate director career services to a significant other at home: No Do you presently have visiting nurse or other home services: No Alcohol intake: current Alcohol intake frequency: a few times a week Comment: advised of trip hazard Patient Tobacco Use Status: Never used Tobacco e-Cigarette/Vaping Use: Never Used Advance Directives Date on File: 04/17/25 service: No Current occupational status: retired Current occupation: retired Current occupational exposures/hazards: No Cognitive needs: No Hearing needs: No Vision needs: No Meds Allergies Allergy/AdvReac Type Severity Reaction Status Date / Time No Known Allergies Allergy Verified 05/30/25 09:52 Home Medications ?Medication ?Instructions ?Recorded ?Confirmed ?Last Taken ?Type amlodipine 5 mg tablet 5 mg PO QAM 04/17/25 05/30/25 05/30/25 07:00 History lisinopril 30 mg tablet 30 mg PO QAM 04/17/25 05/30/25 05/29/25 History metoprolol tartrate 25 mg tablet 25 mg PO BEDTIME 04/17/25 05/30/25 05/29/25 History metoprolol tartrate 50 mg tablet 50 mg PO QAM 04/17/25 05/30/25 05/30/25 07:00 History Exam Exam Date and Time: 05/30/25 1115 Height,Weight and Vital Signs: Height 5 ft 9 in Weight 99.5 kg Last Vital Signs Pulse 64 04/17/25 10:21 Resp 20 04/17/25 10:21 BP 150/80 H 04/17/25 10:21 Pulse Ox 97 04/17/25 10:21 Height 5 ft 9 in Weight 98.43 kg O2 Del Method Room Air 04/17/25 10:21 Pertinent Lab Results Pertinent Lab Results: Laboratory Tests 04/17/25 11:14 WBC 6.5 RBC 4.53 L Hgb 14.7 Hct 42.4 Plt Count 212 Sodium 136 Potassium 4.6 BUN 33 H Creatinine 1.75 H Laboratory Results - last 24 hr 05/30/25 09:54 PT 13.4 H D INR 1.2 H Airway Mallampati Class: II TM Dist: >3cm Neck ROM: Full Loose/Missing/Broken Teeth: No (patient denies any loose or broken teeth) Heart: S1S2 Assessment and Plan Assessment Anesthesia Assessment: Anesthesia Plan Discussed and Chart Reviewed Final Anesthetic Review Family History of Problems with Anesthesia: No History of Problems with Anesthesia: No NPO: Yes ASA Class: III Final Preanesthetic Review: No Changes in Pt Med Stat, Meds/Allgs Chart Reviewed, Consent Obtained/Reviewed and Anes Risks/Benef Reviewed Patient Risk: Intermediate Procedure Risk: Intermediate Anesthetic Plan Anesthetic Plan: Spinal, Regional Block (right adductor canal block and right ipack block) and Agree w/ Assess. and Plan Disposition: Standard PACU
--- NOTE | 2025-05-30 15:42 | PM.OP ---
Brief Operative Note Date of Service: 05/30/25 Pre-op diagnosis: RIght knee OA Post-op diagnosis: same Procedure: Right TKA Implants: Anthony Persona /12CPS/ cemented Surgeon: Jose Garrett MD Anesthesia: regional and spinal Was an General Manager Food used for this Procedure?: Yes General Manager Food: Guy Gonzales Estimated blood loss (mL): 25 Tourniquet time (min): 90 IV fluids (mL): 1,000 Pathology: other Condition: stable Disposition: PACU
[2025-05-30] MEDS: 0.9 % Sodium Chloride Flush 3 ML SYRINGE IVFLUSH (18:01)
[2025-05-30] MEDS: oxyCODONE HCl ER 10 MG TAB.ER.12H PO (20:23)
--- NOTE | 2025-05-30 20:28 | PM.DS ---
DS: Providers Provider Date of Service: 05/30/25 Date of discharge: 05/31/25 Primary care physician: JESUS Berger Consults: 05/30/25 17:34 Consult to Case Management Routine Comment: rt tka home w vna Consult to Hospitalist Routine Comment: Consulting Provider[place] [facility] [place] Reason For Exam: afib DS: Diagnosis Discharge Diagnosis (1) Status post total right knee replacement: Status: Acute DS: Summary Hospital Course Hospital Course: The patient underwent a successful Right total knee arthroplasty on 05/30/[address] Garrett, was transferred to PACU and then to the floor to recover. During their stay, their vitals were stable, afebrile at 98.3. Labs were unremarkable, H/H 13.0/35.6 . INR on admission and discharge 1.2, POD 0 he resumed his coumadin. POD 1 he was started on Loveox 40 mg subQ qd for DVT ppx. He will discontinue the lovenox once INR is therapeutic between 2-3. VNA to perform INR draw and send results to [facility] Service [place] [facility] [place] First INR should be drawn after the pt has received at least 3 doses of warfarin. Four or 5 doses better. Usually takes no more than 2 visits/week and the pt should be back in target range within a week or two. He also received Physical Therapy services twice a day. Physical therapy should include gait training, ROM to tolerance and quad strength. He is WBAT. Prior to discharge, his dressing was changed, incision clean dry and intact, new Aquacel dressing applied. The Aquacel dressing should remain intact and dry at all times. Any concerns with the dressing, please contact orthopedic office. No showering. The plan is to be discharged home with VNA services. Time Attestation Discharge Coordination Time (in mins): 30 Quality: Safe Use of Opioids Does Pt have an Active Cancer Diagnosis on the Problem List?: No Quality: Stroke Does the patient have a stroke diagnosis?: No Physical Exam Vital Signs: Vital Signs: Last Vital Signs Temp 98.5 F 05/30/25 19:11 Pulse 81 05/30/25 19:11 Resp 15 05/30/25 19:11 BP 146/76 H 05/30/25 19:11 Pulse Ox 96 05/30/25 19:11 O2 Del Method Room Air 05/30/25 19:11 O2 Flow Rate 6 05/30/25 15:54 BMI result Body Mass Index 34.1 DS: Data Data Completed and Pending Pending studies at discharge: Pending at discharge 05/30/25 14:01 Surgical [PTH] Routine Labs on day of discharge: Laboratory Results - last 24 hr 05/30/25 09:54 PT 13.4 H D INR 1.2 H Discharge Plan Discharge Patient Disposition: Home Health Service Referrals: Guy Gonzales PA-C [Physician Safety Equipment Testing Specialist, Orthopedics] - 1 Week Referral Note: 06/15/25 15:15 [facility] [place] [facility] Guy Gonzales PA-C Discharge Medications: New docusate sodium 100 mg Capsule 100 mg PO BID 7 Days Qty: 14 0RF celecoxib 200 mg Capsule 200 mg PO BID 30 Days Qty: 60 0RF acetaminophen 325 mg Tablet 650 mg PO Q6H PRN (Reason: Pain, Mild 1-3,Fever,Headache) 30 Days Qty: 240 0RF oxycodone 5 mg Tablet 5 mg PO Q4H PRN (Reason: Pain, Moderate(Pain Scale 4-6)) 7 Days Qty: 42 0RF Rx Instructions: Partial Fill upon patient request. enoxaparin 40 mg/0.4 mL Syringe 40 mg subcut Q24H 14 Days Qty: 5.6 0RF Rx Instructions: Discontinue Lovenox once INR goal met Continued (DME) Folding Front Wheeled walker See Rx Instructions .ROUTE .MEDSUPPLY Qty: 1 0RF Rx Instructions: Duration: 99 days warfarin 4 mg tablet 4 mg PO DAILY Qty: 30 5RF Protocol: Dose Management Condition: Thursday (Week One) Dose/Route: 2 mg Instruction: 0.5 x 4 mg tablets Condition: Thursday Dose/Route: 4 mg Instruction: 1 x 4 mg tablet Condition: Thursday Dose/Route: 2 mg Instruction: 0.5 x 4 mg tablets Condition: Thursday Dose/Route: 4 mg Instruction: 1 x 4 mg tablet Condition: Dose/Route: 2 mg Instruction: 0.5 x 4 mg tablets Condition: Thursday Dose/Route: 4 mg Instruction: 1 x 4 mg tablet Condition: Thursday Dose/Route: 2 mg Instruction: 0.5 x 4 mg tablets Condition: Thursday (Week Two) Dose/Route: 2 mg Instruction: 0.5 x 4 mg tablets Condition: Thursday Dose/Route: 4 mg Instruction: 1 x 4 mg tablet Condition: Thursday Dose/Route: 2 mg Instruction: 0.5 x 4 mg tablets Condition: Thursday Dose/Route: 4 mg Instruction: 1 x 4 mg tablet Condition: Dose/Route: 2 mg Instruction: 0.5 x 4 mg tablets Condition: Thursday Dose/Route: 4 mg Instruction: 1 x 4 mg tablet Condition: Thursday Dose/Route: 2 mg Instruction: 0.5 x 4 mg tablets Protocol Text: Adjustment Start Date: 05/04/25 INR Value: 2.1 INR Date: 05/04/25 Recheck Date: 05/22/25 Rx Instructions: 4 mg on Thu, Thu, Thu & 2mg on Thu, Thu, , hydrochlorothiazide 25 mg tablet 25 mg PO DAILY Qty: 90 3RF levothyroxine [Synthroid] 100 mcg tablet 100 mcg PO DAILY Qty: 60 0RF metoprolol tartrate 25 mg Tablet 25 mg PO BEDTIME amlodipine 5 mg tablet 5 mg PO QAM metoprolol tartrate 50 mg tablet 50 mg PO QAM lisinopril 30 mg tablet 30 mg PO QAM Discharge Orders: Discharge Order (Routine); Ordered 05/31/25 Ordered By: Guy Gonzales Diet: Regular diet Activity on Discharge: Use cane or walker Activity Restrictions/Additional Instructions: Physical Therapy for ROM 0-120, quad strength, gait training. Use walker for ambulation Limit stair climbing No shower or tub bath No driving for 6 weeks Continue anticoagulant Keep Aquacel dressing clean, dry and intact. Follow up with orthopedics in 2 weeks -Bandage/Incision Site Care: -Ice 20mins at a time -Make sure you use a towel or cloth on your skin as a barrier -DO NOT remove the bandage -Keep Bandage clean, dry and intact -Do not get the bandage wet: -No tub bath, pools or hot tubs -If there are any concerns regarding the bandage please call orthopedics: [phone] -Knee Precautions: -Refrain from putting pillows under the knee -Keep leg straight while resting the knee -Avoid low chairs and deep couches -Use supportive shoes with nonslip soles -Physical Therapy: -Patient is WBAT with the use of a walker -Range of Motion: 0-120 degrees. -Strengthening: Quadriceps and hip muscles -Walking: Gait training and gradually increasing distance with walker -Ankle pumps and incentive spirometry to limit the risk of blood clot -Diet: -Resume regular diet as tolerated. -Drink plenty of fluids and eat a high-fiber foods to avoid constipation -This is a common side effect of pain medication) -Take stool softeners as prescribed -Blood Clot Prevention: -Resume Coumadin with an INR goal of 2-3. Continue Lovenox until INR goal met. -Perform ankle pumps and walk frequently with the walker and assistance if needed -Report calf pain, swelling, or shortness of breath immediately Print Language: [place]
--- NOTE | 2025-05-30 20:33 | P.F2F_ITS ---
Service Date Service Date: 05/30/25 Encounter Date of encounter: 05/30/25 Reasons for Services Signs and symptoms assessed: Weakness, poor balance, poor gait mechanics INR monitoring: First INR should be drawn after the pt has received at least 3 doses of warfarin. Four or 5 doses better. Usually takes no more than 2 visits/week and the pt should be back in target range within a week or two. Send results to [facility] services at [facility] Reason for fci: monitoring of PT/INR Reason for physical therapy: home safety and mobility, therapeutic exercises, restore joint function, gait/transfer training, ADL training, energy conservation and other (INR) Reason for occupational therapy: home safety and mobility, therapeutic exercises, restore joint function, gait/transfer training, ADL training and energy conservation Overseeing Care: Jose Garrett Homebound: Leaving the home is medically contraindicated at this time without the asist of a device and/or another person due th the listed conditions above and below. Reason homebound: unsteady gait / fall risk, pain with ambulation, poor balance / fall risk and unable to drive Homebound supporting statement: Pt. is considered home bound due to recent surgery. Unable to drive, poor balance, poor gait mechanics. Certification: Based on the above findings, I certify that this patient is confined to the home and needs intermittent fci care, physical therapy and/or speech therapy, or continues to need occupational therapy. The patient is under my care, and I have initiated the establishment of the plan of care. The patient will be followed by a physician who will periodically review the plan of care. Time Spent With Patient Time: Total time managing care of this patient today ____ minutes.
[2025-05-31 02:28] VITALS: BP 127/78; PULSE 74; RESP 18; TEMP 37.1; O2SAT 95
[2025-05-31] MEDS: Lactated Ringers 1,000 ML 100 ML IVCONT (03:09)
--- NOTE | 2025-05-31 03:16 | PM.EVENT ---
Event Note Date of Service: 05/31/25 Event Note: Orthopedics asked for hospitalist to see pt regarding AFIB. Pt sleeping at time of visit. Pt currently in regular rhythm based on apical pulse check. DC summary noted in chart and agree with continuing metoprolol as ordered, bridging coumadin with lovenox as per surgery to obtain INR 2.0-3.0. INR currently 1.2. Pt will be followed by [facility] and plan is in place for repeat INR testing as an outpatient per ortho with instructions provided. Pt will need to continue to follow with aviation electrical technician regularly. Pt had evidence of subclinical hypothyroidism on Levothyroxine per labs done 05/18/2025. It appears pt's dose of levothyroxine was recently increased from 88 mcg to 100 mcgs. Pt will need to follow with PCP and have repeat labs in the next month for follow up. Please reach out to hospitalist with any questions or concerns prior to discharge. Time Spent With Patient Time: Total time managing care of this patient today ____ minutes.
[2025-05-31 06:03] VITALS: BP 140/79; PULSE 74; RESP 19; TEMP 36.9
[2025-05-31 06:42] LABS: INTERNATIONAL NORM RATIO 1.2 (0.9-1.1); Prothrombin Time 13.3 SEC (10.9-12.4)
[2025-05-31 06:52] LABS: Anion Gap 13 (12-20); Blood Urea Nitrogen 33 mg/dL (9-16); Calcium 8.5 mg/dL (8.4-10.2); Carbon Dioxide 24 mmol/L (22-29); Chloride 103 mmol/L (96-108); Creatinine Clr Calc Pharmacy 49.6; Estimated Glomerular Filt Rate 45; Potassium 4.8 mmol/L (3.3-5.1); Sodium 135 mmol/L (135-145)
[2025-05-31 07:06] LABS: Hematocrit 36.5 % (42.0-52.0); Hemoglobin 13.0 g/dl (14.0-18.0); Imm Gran Abs Auto 0.07 X10*3/uL (0.00-0.03); Imm Gran Pct Auto 0.7 % (0.0-0.4); Lymphocytes Absolute Auto 0.3 X10*3/uL (1.2-4.9); MANUAL DIFF FLAG SCAN; Mean Corpuscular HGB Conc 35.6 g/dl (31.0-36.0); Mean Corpuscular Hemoglobin 33.0 pg (27.0-33.0); Mean Corpuscular Volume 92.6 fL (80.0-98.0); NRBC Abs Auto 0.000 X10*3/uL (0.0-0.012); NRBC Pct Auto 0.0 /100WBC (0.0-0.2); Platelet Count 220 X10*3/uL (160-400); Red Blood Count 3.94 X10*6/uL (4.60-5.80); SCAN SMEAR FLAG 1; White Blood Count 9.4 X10*3/uL (4.8-10.8)
--- NOTE | 2025-05-31 07:28 | P.PNOP_ITS ---
Subjective Subjective Date of Service: 05/31/25 Interval history: POD 1 s/p rt tka no overnight events resting in bed, pain well managed denies sob, cp, palpitations Physical Exam Vital Signs: Vital Signs: Last Vital Signs Temp 98.5 F 05/31/25 06:03 Pulse 74 05/31/25 06:03 Resp 19 05/31/25 06:03 BP 140/79 H 05/31/25 06:03 Pulse Ox 95 05/31/25 02:28 O2 Del Method Room Air 05/31/25 06:03 O2 Flow Rate 96 05/31/25 06:03 BMI result Body Mass Index 34.1 Const: General: cooperative, healthy appearing and no acute distress Resp: Effort & Inspection: normal respiratory effort and able to speak in complete sentences Cardio: Rate: regular rate Peripheral pulses: Peripheral pulses 2+ throughout GI: Palpation (GI): Soft to palpation Skin: General skin exam: no rashes or lesions noted Extrem: Other: right knee bandage c/d/i , he is able to plantar and dorsi flex , nvi Procedures Date of Service Date of Service: 05/31/25 Progress Note: A&P Assessment and plan (1) Status post total right knee replacement: Status: Acute Assessment and Plan: Continue pain mgmnt * coumadin resumed, lovneox until INR therapeutic at 2-3 * begin PT for RT TKA * Dispo planning-Pending PT eval, pain mgmnt Time Spent With Patient Time: Total time managing care of this patient today ____ minutes. Quality Stroke Does the patient have a stroke diagnosis?: No VTE Prior VTE?: No VTE Risk Level:: Surgical - very high VTE Device Contraindication: N/A - Device Ordered VTE Drug Contraindication: N/A - Med Ordered
[2025-05-31 07:47] VITALS: BP 138/88; PULSE 77; RESP 16; TEMP 36.8; O2SAT 97
[2025-05-31] MEDS: oxyCODONE HCl Immed Release 5 MG TABLET PO ×2 (07:54→11:25)
[2025-05-31] MEDS: oxyCODONE HCl ER 10 MG TAB.ER.12H PO (07:55)
--- NOTE | 2025-05-31 08:35 | HO.PM.IMCN ---
History of Present Illness Data of Consult Service Date: 05/31/25 Primary Care Provider: Angelo Martinez, SURGERY NURSE- HPI Reason for consult: New onset Afib from Sinus rhythm per ON RN covering the pt Pt with history of AFib on Coumadin, who underwent right TKR on 05/30/2025 by orthopedics, overnight internal Medicine help desk support specialist was consulted for tele showing AFib. I saw this patient in the morning. EKG-V paced rhythm, sinus, rate controlled Patient is on warfarin, subtherapeutic, however has Lovenox bridging, and Coumadin has been resumed by primary team-ortho. INR at the time of discharge was 1.2-subtherapeutic. Patient's was at the bedside during this interaction. They expressed that he would like to be off of Coumadin-advised the patient to follow-up with PCP outpatient Cardiac history-patient underwent successful cardioversion for AFib to sinus rhythm on 07/27/2024 Checked TSH which was within normal range of 1.44, electrolytes WNL Given that the patient has self reverted to sinus rhythm without interventions, I would like to not initiate any new medications at this time. Patient does have RONI likely in the setting of prerenal-advised to follow up with PCP No changes in medications at the time of this admission from medicine standpoint Review of Systems Review of Systems: Patient is acutely hard of hearing, at the bedside Yes all other systems are reviewed and are negative PMFSH Medical History Transfusion of blood product declined due to jainism reason Staph infection Hypothyroid Liver fibrosis History of cardioversion SVT (supraventricular tachycardia) Atrial fibrillation HTN (hypertension) Arthritis Family History Father No problems noted. Mother No problems noted. Surgical History History of incision and drainage History of cardiac ablation for atrial fibrillation Hx of colonoscopy Hx of right knee surgery Social History Household Members: Spouse Housing: House Housing Other:: lives with Are you a primary health care analyst to a significant other at home: No Do you presently have visiting nurse or other home services: No Alcohol intake: current Alcohol intake frequency: a few times a week Comment: advised of trip hazard Patient Tobacco Use Status: Never used Tobacco e-Cigarette/Vaping Use: Never Used Advance Directives Date on File: 04/17/25 service: No Current occupational status: retired Current occupation: retired Current occupational exposures/hazards: No Cognitive needs: No Hearing needs: No Vision needs: No Meds Allergies Allergy/AdvReac Type Severity Reaction Status Date / Time No Known Allergies Allergy Verified 05/30/25 09:52 Active Medications: Current Medications Acetaminophen (Acetaminophen 325 Mg Tablet) 650 mg PO Q6H PRN PRN Reason: Pain, Mild 1-3,fever,headache Celecoxib (Celecoxib 200 Mg Capsule) 200 mg PO BID [facility] Last Admin: 05/31/25 07:55 Dose: 200 mg Docusate Sodium (Docusate Sodium 100 Mg Capsule) 100 mg PO BID [facility] Last Admin: 05/31/25 07:55 Dose: 100 mg Enoxaparin Sodium (Enoxaparin Sodium 40 Mg/0.4 Ml Syringe) 40 mg SUBCUT Q24H [facility] Hydromorphone HCl (Hydromorphone Hcl 0.5 Mg/0.5 Ml Syringe) 0.25 mg IVPUSH Q4H PRN; Protocol PRN Reason: Pain, Severe (Pain Scale 7-10) Levothyroxine Sodium (Levothyroxine Sodium 100 Mcg Tablet) 100 mcg PO DAILY [facility] Last Admin: 05/31/25 07:55 Dose: 100 mcg Metoprolol Tartrate (Metoprolol Tartrate 50 Mg Tablet) 50 mg PO DAILY [facility]; Protocol Last Admin: 05/31/25 07:55 Dose: 50 mg Metoprolol Tartrate (Metoprolol Tartrate 25 Mg Tablet) 25 mg PO BEDTIME [facility]; Protocol Last Admin: 05/30/25 20:24 Dose: 25 mg Naloxone HCl (Naloxone Hcl 0.4 Mg/Ml Vial) 0.04 mg IVPUSH Q5M PRN PRN Reason: Excessive sedation or RR < 8 Ondansetron HCl (Ondansetron Hcl 4 Mg/2 Ml Vial) 4 mg IVPUSH Q8H PRN PRN Reason: Nausea and Vomiting Oxycodone HCl (Oxycodone Hcl Immed Release 5 Mg Tablet) 5 mg PO Q4H PRN PRN Reason: Pain, Moderate(Pain Scale 4-6) Last Admin: 05/31/25 07:54 Dose: 5 mg Oxycodone HCl (Oxycodone Hcl Er 10 Mg Tab.Er.12h) 10 mg PO BID [facility] Last Admin: 05/31/25 07:55 Dose: 10 mg Sodium Chloride (0.9 % Sodium Chloride Flush 3 Ml Syringe) 3 ml IVFLUSH QSHIFT [facility] Last Admin: 05/31/25 07:53 Dose: Not Given Warfarin Sodium (Warfarin Sodium 4 Mg Tablet) 4 mg PO DAILY@1800 [facility] Last Admin: 05/30/25 19:23 Dose: 4 mg Home Medications ?Medication ?Instructions ?Recorded ?Confirmed ?Last Taken ?Type amlodipine 5 mg tablet 5 mg PO QA 04/17/25 05/30/25 05/30/25 07:00 History lisinopril 30 mg tablet 30 mg PO QA 04/17/25 05/30/25 05/29/25 History metoprolol tartrate 25 mg tablet 25 mg PO BEDTIME 04/17/25 05/30/25 05/29/25 History metoprolol tartrate 50 mg tablet 50 mg PO QAM 04/17/25 05/30/25 05/30/25 07:00 History Physical Exam Vital Signs and Narrative: Vital Signs: Last Vital Signs Temp 98.3 F 05/31/25 07:47 Pulse 77 05/31/25 07:47 Resp 16 05/31/25 07:47 BP 138/88 05/31/25 07:47 Pulse Ox 97 05/31/25 07:47 O2 Del Method Room Air 05/31/25 07:47 O2 Flow Rate 96 05/31/25 06:03 BMI result Body Mass Index 34.1 General: AOx3, no acute distress, very hard of hearing Resp: CTA bilaterally CVS: S1, S2, RRR GI: +BS, NT, no distention Skin: Dressing CDI Results Labs 05/31/25 05:43 05/31/25 05:43 Labs: Laboratory Results - last 24 hr 05/30/25 05/31/25 09:54 05:43 MCV 92.6 MCH 33.0 MCHC 35.6 RDW 14.1 Plt Count 220 MPV 9.5 Immature Gran % (Auto) 0.7 H Neut % (Auto) 93.0 H Lymph % (Auto) 3.6 L Leon % (Auto) 2.7 Eos % (Auto) 0.0 Baso % (Auto) 0.0 Lymph # (Auto) 0.3 L Leon # (Auto) 0.3 Eos # (Auto) 0.0 Baso # (Auto) 0.0 Abs Immat Gran (auto) 0.07 H Absolute Neuts (auto) 8.8 H Absolute Nucleated RBC 0.000 Nucleated RBC % (auto) 0.0 Smear Tech's Comments VERIFIED PT 13.4 H D 13.3 H INR 1.2 H 1.2 H Anion Gap 13 Estim Creat Clear Calc 49.6 Estimated GFR 45 Fasting Glucose 148 H Calcium 8.5 D Imaging Radiologist's Impressions: Impressions Knee X-Ray 05/30/25 16:15 IMPRESSION: Unremarkable immediately post total knee arthroplasty on the right. Electronically signed by: Jose Maria Khan MD 05/30/2025 04:39 PM EDT RP Assessment and Plan (1) PAF (paroxysmal atrial fibrillation): Status: Acute Pt with history of AFib on Coumadin, who underwent right TKR on 05/30/2025 by orthopedics, overnight internal Medicine help desk support specialist was consulted for tele showing AFib. I saw this patient in the morning. EKG-V paced rhythm, sinus, rate controlled Patient is on warfarin, subtherapeutic, however has Lovenox bridging, and Coumadin has been resumed by primary team-ortho. INR at the time of discharge was 1.2-subtherapeutic. Patient's was at the bedside during this interaction. They expressed that he would like to be off of Coumadin-advised the patient to follow-up with PCP outpatient Cardiac history-patient underwent successful cardioversion for AFib to sinus rhythm on 07/27/2024 Checked TSH which was within normal range of 1.44, electrolytes WNL Given that the patient has self reverted to sinus rhythm without interventions, I would like to not initiate any new medications at this time. Patient does have RONI likely in the setting of prerenal-advised to follow up with PCP No changes in medications at the time of this admission from medicine standpoint-advised the patient to follow up with PCP and Cardiology outpatient.
--- NOTE | 2025-05-31 08:51 | ECG_ITS ---
Test Reason : doctor rquest Blood Pressure : */* mmHG Vent. Rate : 73 BPM Atrial Rate : 73 BPM P-R Int : 194 ms QRS Dur : 88 ms QT Int : 414 ms P-R-T Axes : 50 35 225 degrees QTcB Int : 456 ms Normal sinus rhythm Nonspecific T wave abnormality Abnormal ECG When compared with ECG of 17-Apr-2025 11:03, No significant change was found Referred By: Ericka De Oliveira Electronically Signed By: CHRISS CAMARENA
[2025-05-31 09:29] LABS: Magnesium 1.6 mg/dL (1.6-2.6)
[2025-05-31 09:43] LABS: Thyroid Stimulating Hormone 1.44 uIU/mL (0.32-4.0)
--- NOTE | 2025-05-31 09:44 | HO.POSTANES ---
Post Anesthesia Evaluation Post Anesthesia Evaluation Date of Service: 05/31/25 Vital Signs: Vital Signs Temp Pulse Resp BP Pulse Ox O2 Del Method O2 Flow Rate 05/31/25 07:47 98.3 F 77 16 138/88 97 Room Air 05/31/25 06:03 98.5 F 74 19 140/79 H Room Air 96 05/31/25 02:28 98.7 F 74 18 127/78 95 Room Air 05/30/25 23:00 97.9 F 81 18 135/76 94 Room Air Anesthesia: Spinal Mental Status: Awake Pain Control: Satisfactory Nausea/Vomiting: None Hydration: Adequate Anesthesia-Related Issues: No Anes. Related Issues
[2025-05-31 11:00] VITALS: BP 122/57; PULSE 61; RESP 16; TEMP 36.8; O2SAT 95
--- NOTE | 2025-05-31 11:34 | MHC.CM.PN ---
S/P R TKA Lives with Patient requires assist w ADLs [facility] will provide SN for AC therapy management and PT. PCP Angelo Martinez HCP is on file [facility] will transport
--- NOTE | 2025-06-01 10:10 | P.OP_ITS ---
Operative Note Operative Note Date of Service: 05/30/25 Narrative: Date of Service: 05/30/25 Pre-op diagnosis: RIght knee OA Post-op diagnosis: same Procedure: Right TKA Implants: Anthony Persona //12CPS/35 cemented Surgeon: Jose Garrett MD Anesthesia: regional and spinal Was an Furniture Upholsterer Apprentice used for this Procedure?: Yes Furniture Upholsterer Apprentice: Guy Gonzales Estimated blood loss (mL): 25 Tourniquet time (min): 90 IV fluids (mL): 1,000 Pathology: other Condition: stable Disposition: PACU Procedure in detail: The patient was brought to the operating room and prepped and draped in standard sterile fashion. A time-out was called to identify proper site proper procedure proper surgeon and IV antibiotics were administered. 1 g of IV tranexamic acid was administered. There was a 10deg flexion contracture. I began by making a midline incision to the retinaculum and performed a medial parapatellar arthrotomy. The patella was translated laterally and the knee was flexed up. There was medial compartment eburnation. I performed a small medial peel and resected the infrapatellar fat pad. The custom cutting block was placed on the distal femur using the model on the back table. I placed my distal femoral cutting guide and added an additional 2mm given mild pre operative flexion contr acture. This was a valgus knee and I was cautious not to over resect the lateral posterior condyle. I sized a 10 cutting block and made my anterior, posterior and chamfer cuts protecting the soft tissues at all times. I then made my box but removing the PCL. The lug holes were then drilled. Once I was satisfied with my cuts I turned my attention to the tibia. I removed the meniscus medially and laterally and using the custom tibial cutting block placed my anterior pins and then by cutting block. I used an external cutting guide, in line with the tibial crest and the third ray, to confirm saggital alignment. I made my distal tibial cut while protecting the posterior soft tissues at all times. An extension block was used to confirm appropriate amount of bony resection. The knee was still tight in extension so I took an additional 2mm off the tibial cut. I then sized a F tibia and once I was satisfied that there was complete tibial coverage I placed my trial and with the trial femur in place took the knee through range of motion. Given the preoperative valgus alignment there was some mild medial laxity but I felt that I could not increase the poly or it would reduce his range of motion so I elected to trial a CPS insert. I was satisfied with the extension, flexion and balance at 0, 30 and 90 degrees. I then turned my attention to the patella where I removed 1 cm from the undersurface of the patella and then trialed a 35 patellar button. Again the knee was taken through range of motion I was satisfied with the tracking. I then returned to the tibia and prepared the tibia with a drill and punch. I mixed 2 bags of Palacos bone cement on the back table using 3rd gen cementation technique. I then cemented the patella, tibia and femur in standard fashion while applying axial compression and with a clamp on the patella. Once the cement was dry I removed all excess cement. I trialed different inserts until I selected a #12 CPS insert. The final insert was place d and a the knee was irrigated copiously and local TXA was administered. The knee was then closed with a running Quill suture, a 3 0 Vicryl and scar on the skin. Patient was then placed in sterile dressing and brought to recovery room in stable condition there were no known complications.
== END 2025-05-31 11:49 | disposition home health service (06) ==
LOC: HO.SSS 15:53 → HO.S3 16:44
PROVIDERS: Nurse Practitioner; Physician Assistant; Student in an Organized Health Care Education/Training Program; PCP Nurse Practitioner Family; Visit Provider Orthopaedic Surgery
PROC: (CPT 27447; principal; 2025-05-30 12:30)
DX: M21.061 Valgus deformity, not elsewhere classified, right knee (principal); M17.11 Unilateral primary osteoarthritis, right knee; M25.561 Pain in right knee; I48.0 Paroxysmal atrial fibrillation; I47.10 Supraventricular tachycardia, unspecified; I10 Essential (primary) hypertension; K74.00 Hepatic fibrosis, unspecified; E03.8 Other specified hypothyroidism; N17.9 Acute kidney failure, unspecified; Z14.8 Genetic carrier of other disease; Z79.01 Long term (current) use of anticoagulants; Z79.899 Other long term (current) drug therapy; Z98.890 Other specified postprocedural states
CPT/HCPCS: 27447; 36415; 73560; 80048; 83735; 84100; 84443; 85025; 85610; 88305; 88311; 93005; 97161; C1713; C1776; J0131; J0665; J0690; J1100; J2003; J2250; J2371; J2405; J2704; J2795; J7120

== ENCOUNTER → 2025-05-30 08:52 | Outpatient (BNV) | payer MEDICARE, SELFPAY | PROVIDERS: PCP Nurse Practitioner Family; Visit Provider Orthopaedic Surgery | DX: Z47.1 Aftercare following joint replacement surgery (principal); Z96.651 Presence of right artificial knee joint | CPT/HCPCS: 27447; 99024; G0180 ==

== ENCOUNTER → 2025-05-30 08:52 | Outpatient (BNV) | payer MEDICARE, SELFPAY | PROVIDERS: PCP Nurse Practitioner Family; Visit Provider Nurse Practitioner Family | DX: I48.0 Paroxysmal atrial fibrillation (principal) | CPT/HCPCS: 99222; 99499 ==

== ENCOUNTER → 2025-05-30 15:52 | Outpatient (BNV) | payer MEDICARE, SELFPAY | PROVIDERS: PCP Nurse Practitioner Family; Visit Provider Radiology Diagnostic Radiology | DX: Z96.651 Presence of right artificial knee joint (principal) | CPT/HCPCS: 73560 ==

== ENCOUNTER → 2025-05-31 08:51 | Outpatient (BNV) | payer MEDICARE, SELFPAY | PROVIDERS: PCP Nurse Practitioner Family; Visit Provider Internal Medicine | DX: R94.31 Abnormal electrocardiogram [ECG] [EKG] (principal) | CPT/HCPCS: 93010 ==

== ENCOUNTER → 2025-06-07 23:59 | Outpatient (BNV) | payer MEDICARE, SELFPAY | PROVIDERS: PCP Nurse Practitioner Family; Visit Provider Nurse Practitioner Family | DX: I10 Essential (primary) hypertension (principal); R26.89 Other abnormalities of gait and mobility | CPT/HCPCS: G0180 ==

== ENCOUNTER 2025-06-15 15:12 | Outpatient (AMB) | payer MEDICARE, SELFPAY ==
--- NOTE | 2025-06-15 15:33 | MHC.OFFVIS ---
Intake Visit Reasons: 1stPO: R TKA w/NE 05/30/25 Intake Note: First postop status post right total knee with Dr. Garrett 05/30/2025 Allergies No Known Allergies Allergy (Verified 06/13/25 13:52) Medication List - Last Reconciled 06/15/25 by Guy Gonzales PA-C acetaminophen 650 mg (2 x 325 mg) PO Q6H PRN 30 days amlodipine 5 mg PO QAM celecoxib 200 mg PO BID 30 days docusate sodium 100 mg PO BID 7 days [Folding Front Wheeled walker Duration: 99 days] hydrochlorothiazide 25 mg PO DAILY levothyroxine (Synthroid) 100 mcg PO DAILY lisinopril 30 mg PO DAILY metoprolol tartrate 50 mg PO QAM metoprolol tartrate 25 mg PO BEDTIME oxycodone 5 mg PO Q4H PRN 7 days warfarin 4 mg See Protocol PO DAILY HPI HPI 1stPO: R TKA w/NE 05/30/25: Details: 74-year-old gentleman returns to the office today 2 weeks status post right total knee arthroplasty on 05/30/[address] Garrett. He is ambulating with a cane. He transitions to outpatient physical therapy on 06/21. [facility] Medical History Transfusion of blood product declined due to anabaptism reason Staph infection Hypothyroid Liver fibrosis History of cardioversion SVT (supraventricular tachycardia) Atrial fibrillation HTN (hypertension) Arthritis Surgical History History of incision and drainage History of cardiac ablation for atrial fibrillation Hx of colonoscopy Hx of right knee surgery Family History Father No problems noted. Mother No problems noted. Social History Household Members: Spouse Housing: House Housing Other:: lives with Are you a primary career services manager to a significant other at home: No Do you presently have visiting nurse or other home services: No Alcohol intake: current Alcohol intake frequency: a few times a week Comment: advised of trip hazard Patient Tobacco Use Status: Never used Tobacco e-Cigarette/Vaping Use: Never Used Advance Directives Date on File: 04/17/25 service: No Current occupational status: retired Current occupation: retired Current occupational exposures/hazards: No Cognitive needs: No Hearing needs: No Vision needs: No Review of Systems Const All systems reviewed & are unremarkable except as noted in HPI and below Physical Exam Const General: cooperative and no acute distress Orientation/consciousness: patient oriented x3 Resp Effort & Inspection: normal respiratory effort and able to speak in complete sentences Cardio Peripheral pulses: Peripheral pulses 2+ throughout Neuro General: patient oriented x3 Extrem Other: Right knee incision is clean dry and intact. Range of motion is 0-85 degrees. Calf supple and nontender neurovascularly intact. Assessment & Plan Assessment & Plan (1) Status post total right knee replacement: Code(s): Z96.651 - Presence of right artificial knee joint Category: Surgical Plan: Picacho removed today Steri-Strips applied. The patient will continue working with physical therapy to improve range of motion strength and gait training. He transitions to outpatient physical therapy on 06/21/2025. I reminded the patient no dental work until 3 months post op and he will require antibiotics for dental prophylaxis. Patient was reminded no driving until 6 weeks postop. They will return in 4 weeks for routine follow up, sooner if needed. Coding Level of Care Code Global (17940) Diagnoses Status post total right knee replacement Z96.651
--- OUTSIDE RECORDS SUMMARY | 2025-06-15 19:03 | XMS_ITS | Patient Health Record ---
Author Organization [facility] Address [address] [place] [id number] Care Team Providers Care Document Specialist Name Role Phone Terry Garcia Unavailable [phone] Reason For Referral No Information Plan Of Treatment No Information
== END 2025-06-15 15:36 | disposition home or self-care (01) ==
LOC: HO.HOS 15:13
PROVIDERS: PCP Nurse Practitioner Family; Visit Provider Physician Assistant
DX: Z96.651 Presence of right artificial knee joint (principal)
CPT/HCPCS: 99024

== ENCOUNTER → 2025-06-15 15:12 | Outpatient (BNVA) | payer MEDICARE, SELFPAY | PROVIDERS: PCP Nurse Practitioner Family; Visit Provider Physician Assistant | DX: M25.561 Pain in right knee (principal); Z96.651 Presence of right artificial knee joint | CPT/HCPCS: 99212 ==

== ENCOUNTER 2025-06-27 14:00 | Outpatient (AMB) | payer MEDICARE, SELFPAY ==
[2025-06-27 14:07] LABS: Prothrombin Time Whole Bld POC 21.7 sec (11.1-13.5); ~PT, ~INR - Anti Coag Clinic 1.8 (0.9-1.1)
--- NOTE | 2025-06-27 14:10 | MHC.OFFVISCO ---
Intake Intake Visit Reasons: Anticoagulation Allergies No Known Allergies Allergy (Verified 06/27/25 14:03) Medication List - Last Reconciled 06/27/25 by Dana Martinez, RN acetaminophen 650 mg (2 x 325 mg) PO Q6H PRN 30 days amlodipine 5 mg PO QAM celecoxib 200 mg PO BID 30 days docusate sodium 100 mg PO BID 7 days [Folding Front Wheeled walker Duration: 99 days] hydrochlorothiazide 25 mg PO DAILY levothyroxine (Synthroid) 100 mcg PO DAILY lisinopril 30 mg PO DAILY metoprolol tartrate 50 mg PO QAM metoprolol tartrate 25 mg PO BEDTIME oxycodone 5 mg PO Q4H PRN 7 days warfarin 4 mg See Protocol PO DAILY Nursing Note INR: 1.8 out of therapeutic range of 2-3 Medications and supplements reviewed Patient status: doing well s/p TKR 05/24/25. Using a cane and states pain is much less. Takes 1-2 oxycodone a day. No Tylenol anymore. Medications or supplements: no changes Diet: usual diet for pt Denies any signs and symptoms of bleeding or clotting or unusual bruising Bleeding, bruising, clotting discussed Nutritional guidance given: to avoid greens today Dose: increase today's dose to 4mg (2mg) then usual dose of 2mg X 4 days and 4mg X 3 days (M/W/F) F/U INR Date: 2 weeks?? Patient verbalizing understanding of instructions given. Anti-Coag Initial Assessment Social Hx Patient Tobacco Use Status: Never used Tobacco alcohol intake: current Alcohol intake frequency: a few times a week Cardiovascular Hx: HTN and Arrhythmias Endocrine Hx: Thyroid Disease Musculoskeletal Hx: Arthritis Cancer HX: No (father lung cancer ) Psych. Illness/Depression: No Coding Level of Care Code Est Patient Level 1 Diagnoses Current use of anticoagulant therapy Z79.01 Assessment & Plan Assessment & Plan (1) Current use of anticoagulant therapy: Code(s): Z79.01 - alf (current) use of anticoagulants Category: Medical
--- OUTSIDE RECORDS SUMMARY | 2025-06-27 18:20 | XMS_ITS | Patient Health Record ---
Author Organization [facility] Address [address] [place] [id number] Care Team Providers Care Fixing Carpenter Name Role Phone Terry Garcia Unavailable [phone] Reason For Referral No Information Plan Of Treatment No Information
== END 2025-06-27 14:30 | disposition home or self-care (01) ==
LOC: HO.ACS 14:00
PROVIDERS: PCP Nurse Practitioner Family; Visit Provider Internal Medicine Medical Oncology
DX: Z79.01 Long term (current) use of anticoagulants (principal)

== ENCOUNTER → 2025-06-27 14:00 | Outpatient (BNVA) | payer MEDICARE, SELFPAY | PROVIDERS: PCP Nurse Practitioner Family; Visit Provider Internal Medicine Medical Oncology | DX: Z79.01 Long term (current) use of anticoagulants (principal) | CPT/HCPCS: 85610; 99211 ==

== ENCOUNTER 2025-07-11 13:28 | Outpatient (AMB) | payer MEDICARE, SELFPAY ==
--- NOTE | 2025-07-11 13:38 | MHC.OFFVISCO ---
Intake Intake Visit Reasons: Anticoagulation Allergies No Known Allergies Allergy (Verified 07/11/25 13:31) Medication List - Last Reconciled 07/11/25 by Alysha Muñoz RN acetaminophen 650 mg (2 x 325 mg) PO Q6H PRN 30 days amlodipine 5 mg PO QAM celecoxib 200 mg PO BID 30 days docusate sodium 100 mg PO BID 7 days [Folding Front Wheeled walker Duration: 99 days] hydrochlorothiazide 25 mg PO DAILY levothyroxine (Synthroid) 100 mcg PO DAILY lisinopril 30 mg PO DAILY metoprolol tartrate 50 mg PO QAM metoprolol tartrate 25 mg PO BEDTIME oxycodone 5 mg PO Q4H PRN 7 days warfarin 4 mg See Protocol PO DAILY Nursing Note NO CP,SOB,DIET/MED CHANGES,FALLS OR SX OF BLEEDING. CONTINUE PRESENT DOSING AND FOLLOW-UP IN 4 WEEKS GOOD UNDERSTANDING OF DOSING INSTR. Anti-Coag Initial Assessment Social Hx Patient Tobacco Use Status: Never used Tobacco alcohol intake: current Alcohol intake frequency: a few times a week Cardiovascular Hx: HTN and Arrhythmias Endocrine Hx: Thyroid Disease Musculoskeletal Hx: Arthritis Cancer HX: No (father lung cancer ) Psych. Illness/Depression: No Coding Level of Care Code Est Patient Level 1 Diagnoses Current use of anticoagulant therapy Z79.01 Results AMB INR Fingerstick AMB INR Fingerstick 2.4 Last Edit by Alysha Muñoz RN on 07/11/25 13:36 Assessment & Plan Assessment & Plan (1) Current use of anticoagulant therapy: Code(s): Z79.01 - skilled nursing (current) use of anticoagulants Category: Medical
--- OUTSIDE RECORDS SUMMARY | 2025-07-11 15:04 | XMS_ITS | Patient Health Record ---
Author Organization [facility] Address [address] [place] [id number] Care Team Providers Care Outreach Rep Name Role Phone Terry Garcia Unavailable [phone] Reason For Referral No Information Plan Of Treatment No Information
[2025-07-12 11:04] LABS: Prothrombin Time Whole Bld POC 28.4 sec (11.1-13.5); ~PT, ~INR - Anti Coag Clinic 2.4 (0.9-1.1)
== END 2025-07-11 13:39 | disposition home or self-care (01) ==
LOC: HO.ACS 13:28
PROVIDERS: PCP Nurse Practitioner Family; Visit Provider Internal Medicine Medical Oncology
DX: Z79.01 Long term (current) use of anticoagulants (principal)

== ENCOUNTER → 2025-07-11 13:28 | Outpatient (BNVA) | payer MEDICARE, SELFPAY | PROVIDERS: PCP Nurse Practitioner Family; Visit Provider Internal Medicine Medical Oncology | DX: I48.91 Unspecified atrial fibrillation (principal); Z51.81 Encounter for therapeutic drug level monitoring; Z79.01 Long term (current) use of anticoagulants | CPT/HCPCS: 85610; 99211 ==

== ENCOUNTER 2025-07-20 11:23 | Outpatient (AMB) | payer MEDICARE, SELFPAY ==
--- NOTE | 2025-07-20 11:32 | MHC.OFFVIS ---
Intake Visit Reasons: 2ndPO: R TKA w/NE 05/30/25 Intake Note: Vipul is a 74 year old male who presents today for a post operative follow up about 7 weeks s/p Right TKA 05/30/25. He reports that he is doing well, with little pain. Continues to work with physical therapy, has increased pain after PT. Allergies No Known Allergies Allergy (Verified 07/11/25 13:31) HPI HPI 2ndPO: R TKA w/NE 05/30/25: Details: Vipul is a 74 year old male who presents today for a post operative follow up about 7 weeks s/p Right TKA 05/30/25. He reports that he is doing well, with little pain. Continues to work with physical therapy, has increased pain after PT. [facility] Medical History Transfusion of blood product declined due to lutheran reason Staph infection Hypothyroid Liver fibrosis History of cardioversion SVT (supraventricular tachycardia) Atrial fibrillation HTN (hypertension) Arthritis Surgical History History of incision and drainage History of cardiac ablation for atrial fibrillation Hx of colonoscopy Hx of right knee surgery Family History Father No problems noted. Mother No problems noted. Social History Household Members: Spouse Housing: House Housing Other:: lives with Are you a primary account executive healthcare to a significant other at home: No Do you presently have visiting nurse or other home services: No Alcohol intake: current Alcohol intake frequency: a few times a week Comment: advised of trip hazard Patient Tobacco Use Status: Never used Tobacco e-Cigarette/Vaping Use: Never Used Advance Directives Date on File: 04/17/25 service: No Current occupational status: retired Current occupation: retired Current occupational exposures/hazards: No Cognitive needs: No Hearing needs: No Vision needs: No Physical Exam Exam Exam: Mild effusion with well-healed incision. 0-100 degrees of motion. Assessment & Plan Assessment & Plan (1) Status post total right knee replacement: Code(s): Z96.651 - Presence of right artificial knee joint Category: Surgical Plan: Status post right knee replacement doing well. He takes blood thinners at baseline. I informed him of the my expectations have where he should be and reassured him that he is right where he should be. Continues to have some stiffness in his swelling but that should improve over time he continues his physical therapy. He can follow up to see me in 6 weeks Coding Level of Care Code Global (10306) Diagnoses Status post total right knee replacement Z96.651
--- OUTSIDE RECORDS SUMMARY | 2025-07-20 17:36 | XMS_ITS | Patient Health Record ---
Author Organization [facility] Address [address] [place] [id number] Care Team Providers Care Metallography Teacher Name Role Phone Terry Garcia Unavailable [phone] Reason For Referral No Information Plan Of Treatment No Information
== END 2025-07-20 12:03 | disposition home or self-care (01) ==
LOC: HO.HOS 11:23
PROVIDERS: PCP Nurse Practitioner Family; Visit Provider Orthopaedic Surgery
DX: Z96.651 Presence of right artificial knee joint (principal)
CPT/HCPCS: 99024

== ENCOUNTER → 2025-07-20 11:23 | Outpatient (BNVA) | payer MEDICARE, SELFPAY | PROVIDERS: PCP Nurse Practitioner Family; Visit Provider Orthopaedic Surgery | DX: Z47.1 Aftercare following joint replacement surgery (principal); Z96.651 Presence of right artificial knee joint | CPT/HCPCS: 99212 ==

== ENCOUNTER 2025-08-08 13:24 | Outpatient (AMB) | payer MEDICARE, SELFPAY ==
[2025-08-08 13:44] LABS: Prothrombin Time Whole Bld POC 51.6 sec (11.1-13.5); ~PT, ~INR - Anti Coag Clinic 4.3 (0.9-1.1)
--- NOTE | 2025-08-08 13:49 | MHC.OFFVISCO ---
Intake Intake Visit Reasons: Anticoagulation Allergies No Known Allergies Allergy (Verified 08/08/25 13:39) Medication List - Last Reconciled 08/08/25 by Dana Martinez RN acetaminophen 650 mg (2 x 325 mg) PO Q6H PRN 30 days amlodipine 5 mg PO QAM celecoxib 200 mg PO BID 30 days docusate sodium 100 mg PO BID 7 days [Folding Front Wheeled walker Duration: 99 days] hydrochlorothiazide 25 mg PO DAILY levothyroxine 100 mcg PO DAILY lisinopril 30 mg PO DAILY metoprolol tartrate 50 mg PO QAM metoprolol tartrate 25 mg PO BEDTIME oxycodone 5 mg PO Q4H PRN 7 days warfarin 4 mg See Protocol PO DAILY Nursing Note INR: 4.3 out of therapeutic range of 2-3 Medications and supplements reviewed No changes in health, diet, medications, or supplements, Denies any signs and symptoms of bleeding or bruising or clotting. Bleeding, bruising, clotting discussed Nutritional guidance given to have a serving of greens today Dose: pt took today's dose already so will decrease tomorrow's dose of 4mg to 2mg then usual dose of 2mg X 4 days and 4mg X 3 days (M/W/F) F/U INR: 3 weeks Patient verbalizes understanding of instructions given Anti-Coag Initial Assessment Social Hx Patient Tobacco Use Status: Never used Tobacco alcohol intake: current Alcohol intake frequency: a few times a week Cardiovascular Hx: HTN and Arrhythmias Endocrine Hx: Thyroid Disease Musculoskeletal Hx: Arthritis Cancer HX: No (father lung cancer ) Psych. Illness/Depression: No Coding Level of Care Code Est Patient Level 1 Diagnoses Current use of anticoagulant therapy Z79.01 Results AMB INR Fingerstick AMB INR Fingerstick 4.3 Last Edit by Dana Martinez RN on 08/08/25 13:51 interface delay Assessment & Plan Assessment & Plan (1) Current use of anticoagulant therapy: Code(s): Z79.01 - assisted (current) use of anticoagulants Category: Medical
--- OUTSIDE RECORDS SUMMARY | 2025-08-08 18:50 | XMS_ITS | Patient Health Record ---
Author Organization [facility] Address [address] [place] [id number] Care Team Providers Care Humid System Operator Name Role Phone Terry Garcia Unavailable [phone] Reason For Referral No Information Plan Of Treatment No Information
== END 2025-08-08 13:53 | disposition home or self-care (01) ==
LOC: HO.ACS 13:24
PROVIDERS: PCP Nurse Practitioner Family; Visit Provider Internal Medicine Medical Oncology
DX: Z79.01 Long term (current) use of anticoagulants (principal)

== ENCOUNTER → 2025-08-08 13:24 | Outpatient (BNVA) | payer MEDICARE, SELFPAY | PROVIDERS: PCP Nurse Practitioner Family; Visit Provider Internal Medicine Medical Oncology | DX: Z79.01 Long term (current) use of anticoagulants (principal); Z51.81 Encounter for therapeutic drug level monitoring | CPT/HCPCS: 85610; 99211 ==

== ENCOUNTER 2025-08-29 13:00 | Outpatient (AMB) | payer MEDICARE, SELFPAY ==
[2025-08-29 13:09] LABS: Prothrombin Time Whole Bld POC 42.4 sec (11.1-13.5); ~PT, ~INR - Anti Coag Clinic 3.5 (0.9-1.1)
--- NOTE | 2025-08-29 13:15 | MHC.OFFVISCO ---
Intake Intake Visit Reasons: Anticoagulation Allergies No Known Allergies Allergy (Verified 08/29/25 13:10) Medication List - Last Reconciled 08/29/25 by Dana Martinez RN acetaminophen 650 mg (2 x 325 mg) PO Q6H PRN 30 days amlodipine 5 mg PO QAM celecoxib 200 mg PO BID 30 days docusate sodium 100 mg PO BID 7 days [Folding Front Wheeled walker Duration: 99 days] hydrochlorothiazide 25 mg PO DAILY levothyroxine 100 mcg PO DAILY lisinopril 30 mg PO DAILY metoprolol tartrate 50 mg PO QAM metoprolol tartrate 25 mg PO BEDTIME oxycodone 5 mg PO Q4H PRN 7 days warfarin 4 mg See Protocol PO DAILY Nursing Note INR: 3.5 out of therapeutic range of 2-3 Medications and supplements reviewed Patient status: pt states he is not taking tylenol anymore. Also that hi appetite is poor. Medications or supplements: no changes Diet: poor appetite Denies any signs and symptoms of bleeding or clotting or unusual bruising Bleeding, bruising, clotting discussed Nutritional guidance given: to have a serving of greens today Dose: hold tomorrow's dose as pt already took today's dose. Then weekly dose decreased by 2mg. Pt will take 2mg X 5 days and 4mg X 2 days (instead of 3 days) F/U INR Date: 09/12/25?? Patient verbalizing understanding of instructions with read back given. Anti-Coag Initial Assessment Social Hx Patient Tobacco Use Status: Never used Tobacco alcohol intake: current Alcohol intake frequency: a few times a week Cardiovascular Hx: HTN and Arrhythmias Endocrine Hx: Thyroid Disease Musculoskeletal Hx: Arthritis Cancer HX: No (father lung cancer ) Psych. Illness/Depression: No Coding Level of Care Code Est Patient Level 1 Diagnoses Current use of anticoagulant therapy Z79.01 Assessment & Plan Assessment & Plan (1) Current use of anticoagulant therapy: Code(s): Z79.01 - retirement (current) use of anticoagulants Category: Medical
--- OUTSIDE RECORDS SUMMARY | 2025-08-29 16:56 | XMS_ITS | Patient Health Record ---
Author Organization [facility] Address [address] [place] [id number] Care Team Providers Care Final Application Reviewer Name Role Phone Terry Garcia Unavailable [phone] Reason For Referral No Information Plan Of Treatment No Information
== END 2025-08-29 13:21 | disposition home or self-care (01) ==
LOC: HO.ACS 13:00
PROVIDERS: PCP Nurse Practitioner Family; Visit Provider Internal Medicine Medical Oncology
DX: Z79.01 Long term (current) use of anticoagulants (principal)

== ENCOUNTER → 2025-08-29 13:00 | Outpatient (BNVA) | payer MEDICARE, SELFPAY | PROVIDERS: PCP Nurse Practitioner Family; Visit Provider Internal Medicine Medical Oncology | DX: I48.91 Unspecified atrial fibrillation (principal); Z51.81 Encounter for therapeutic drug level monitoring; Z79.01 Long term (current) use of anticoagulants | CPT/HCPCS: 85610; 99211 ==